=== PATIENT | male | born 1955 | race Caucasian/White ===

== ENCOUNTER 2021-06-25 02:43 | Emergency (ER) | payer OTHER, SELFPAY ==
[2021-06-25 02:43] VITALS: BP 100/61; PULSE 121; RESP 20; TEMP 36.6; O2SAT 96
--- NOTE | 2021-06-25 02:56 | ECG_ITS ---
Measurements Intervals [place] Rate: 107 P: 39 [place]: 151 QRS: -41 QRSD: 90 T: 77 QT: 357 QTc: 477 Interpretive Statements SINUS TACHYCARDIA LEFT AXIS DEVIATION DELAYED PRECORDIAL R/S TRANSITION BASELINE ARTIFACT- II, III, AVR, AVL, AVF, V1-V6 BORDERLINE ECG Electronically Signed On 06-25-2021 6:30:24 PROFESSIONAL SERVICES SPECIALIST by Peter Post D.O.
--- NOTE | 2021-06-25 03:10 | ED.GIBLEED ---
HPI - GI Bleed General Chief complaint: GI Bleed Stated complaint: possible gi bleed Time Seen by Provider: 06/25/21 02:47 Source: EMS and RN notes reviewed History of Present Illness HPI Narrative: Patient referred for evaluation for concern of GI bleed. Per nurse home the the patient had a bowel movement and emesis that appeared dark and his heart rate was high so he was referred for evaluation. Patient is nonverbal at baseline. Review of Systems Review of Systems: ROS unobtainable: Yes unobtainable due to medical condition Exam Narrative: GENERAL: Well-appearing, well-nourished, and in no acute distress. HEAD: Normocephalic, atraumatic. EYES: PERRLA and EOMI. ENT: Nares clear, no rhinorrhea or epistaxis. Mucous membranes moist. NECK: Supple. No masses. No JVD CHEST: Clear to auscultation. No respiratory distress. No wheezes rales or rhonchi HEART: Regular rate and rhythm. No murmur heard. Normal peripheral pulses. ABDOMEN: Soft, nontender, nondistended, normal active bowel sounds. Rectal: Mild brown-colored stool no active bleeding Hemoccults negative EXTREMITIES: Normal range of motion. No edema. SKIN: Warm, dry, no rash. NEURO: No focal deficits. Alert PSYCH: Normal mood and affect. Course Reevaluation(s) Reevaluation #1: Patient is resting comfortable heart rate has improved patient is appropriate to continue his [facility] care. Date: 06/25/21 Time: 04:42 Vital Signs Vital signs: Vital Signs Temperature 36.6 C 06/25/21 02:43 Pulse Rate 121 H 06/25/21 02:43 Respiratory Rate 20 06/25/21 02:43 Blood Pressure 100/61 06/25/21 02:43 Pulse Oximetry 96 06/25/21 02:43 Temperature 36.6 C 06/25/21 02:43 Pulse Rate 87 06/25/21 06:56 Respiratory Rate 16 06/25/21 06:56 Blood Pressure 100/72 06/25/21 06:56 Pulse Oximetry 98 06/25/21 06:56 MDM - GI Bleed MDM Narrative Medical decision making narrative: Patient is brought in for dark emesis and stool patient came in with tachycardia. Exam was reassuring rectal exam likely brown-colored stool Hemoccult was negative patient had no emesis throughout his ER stay. Labs obtained and they were clinically unremarkable H&H was normal BUN to creatinine ratio was unremarkable. Patient was given fluids heart rate normalized. Initial elevation in heart rate may be a stress response versus mild dehydration. Unsure as to what the dark-colored excretions were at the nursing facility however does not appear to be evidence of a GI bleed. With negative work-up and normal vital signs patient is appropriate continue his [facility] care. Lab Data Result diagrams: 06/25/21 03:13 06/25/21 03:14 Labs: Lab Results 06/25/21 06/25/21 06/25/21 Range/Units 03:13 03:13 03:14 WBC 8.2 (4.5-10.0) K/mm3 RBC 4.62 (4.6-6.20) M/mm3 Hgb 15.4 (14.0-18.0) g/dL Hct 46.4 (42.0-52.0) % MCV 100.4 H (80-100) fl MCH 33.3 (26-34) pg MCHC 33.2 (32-36) g/dl RDW 13.7 (11.5-14.5) % Plt Count 205 (150-375) k/mm3 MPV 11.9 H (7.4-10.4) fl Immature Gran % (Auto) 0.4 (0-0.5) % Neut % (Auto) 81.3 H (45.5-73.1) % Lymph % (Auto) 11.4 L (18.3-44.2) % Sully % (Auto) 5.4 (2.6-8.5) % Eos % (Auto) 1.0 (0-4.4) % Baso % (Auto) 0.5 (0.2-1.2) % Lymph # (Auto) 0.94 (0.9-3.2) K/mm3 Sully # (Auto) 0.4 (0.1-0.6) K/mm3 Eos # (Auto) 0.1 (0-0.3) K/mm3 Baso # (Auto) 0.0 (0.0-0.1) K/mm3 Abs Immat Gran (auto) 0.03 (0.00-0.031) K/mm3 Absolute Neuts (auto) 6.7 (1.3-6.7) K/mm3 Absolute Nucleated RBC 0.0 (0.0-0.012) K/mm3 Nucleated RBC % 0.0 (0.0-0.2) % PT 13.5 (11.1-14.7) Seconds INR 1.0 APTT 29.6 (22.3-36.8) SECONDS Sodium (137-145) mmol/L Potassium (3.4-5.0) mmol/L Chloride (98-107) mmol/L Carbon Dioxide (22-30) mmol/L Anion Gap (8-16) mmol/L BUN (9-20) mg/dL Creatinine (0.7-1.3) mg/dL Estim Creat Cl
[2021-06-25 03:22] LABS: Basophils Percent Auto 0.5 % (0.2-1.2); Eosinophils Absolute Auto 0.1 K/mm3 (0-0.3); Hematocrit 46.4 % (42.0-52.0); Hemoglobin 15.4 g/dL (14.0-18.0); Immature Granulocyte Absolute 0.03 K/mm3 (0.00-0.031); Immature Granulocyte Percent A 0.4 % (0-0.5); Lymphocytes Absolute Auto 0.94 K/mm3 (0.9-3.2); Lymphocytes Percent Auto 11.4 % (18.3-44.2); Mean Corpuscular HGB Conc 33.2 g/dl (32-36); Mean Corpuscular Hemoglobin 33.3 pg (26-34); Mean Corpuscular Volume 100.4 fl (80-100); Mean Platelet Volume 11.9 fl (7.4-10.4); Monocytes Absolute Auto 0.4 K/mm3 (0.1-0.6); Monocytes Percent Auto 5.4 % (2.6-8.5); Neutrophils Absolute Auto 6.7 K/mm3 (1.3-6.7); Neutrophils Percent Auto 81.3 % (45.5-73.1); Platelet Count Result 205 k/mm3 (150-375); Red Blood Count 4.62 M/mm3 (4.6-6.20); Red Cell Distribution Width 13.7 % (11.5-14.5); White Blood Count 8.2 K/mm3 (4.5-10.0)
[2021-06-25 03:33] LABS: Alanine Aminotransferase 13 U/L (4-50); Albumin Level 3.7 g/dL (3.5-5.1); Alkaline Phosphatase 96 U/L (38-126); Anion Gap 9 mmol/L (8-16); Aspartate Amino Transferase 19 U/L (17-59); Blood Urea Nitrogen 14 mg/dL (9-20); Calcium 9.2 mg/dL (8.4-10.2); Carbon Dioxide 23 mmol/L (22-30); Chloride 107 mmol/L (98-107); Estimated CRCL calculation 69 ml/min; Estimated Glomerular Filt Rate > 60; Glucose 153 mg/dL (65-110); Partial Thromboplastin Time 29.6 SECONDS (22.3-36.8); Sodium 139 mmol/L (137-145)
[2021-06-25 03:38] LABS: Prothrombin Time 13.5 Seconds (11.1-14.7)
[2021-06-25] MEDS: SODIUM CHLORIDE 0.9% IV 1,000 ML 125 ML IV CONT (03:38)
[2021-06-25 04:29] LABS: Add Urine Microscopic? YES; Appearance Urine Clear (Clear); Bilirubin Urine Negative (Negative); Blood Urine Negative (Negative); Color Urine Amber (Yellow); Glucose Urine UA Negative (Negative); Ketones Urine Trace mg/dL (Negative); Leukocyte Esterase Ur Negative LEU/UL (Negative); Mucus Urine Rare /lpf; Nitrate Urine Negative (Negative); Protein Urine 2+ mg/dL (Negative); Specific Grav Ur 1.027 (1.001-1.035); Squamous Epithelial Cell Urine Rare /hpf (Few); WBC Urine 0-3 /hpf
--- NOTE | 2021-06-25 04:30 | PC.NURSE ---
per EDP kierra normal saline rate changed to bolus rate 999 mls/hour
[2021-06-25 04:47] VITALS: BP 106/69; PULSE 100; RESP 12; O2SAT 96
--- NOTE | 2021-06-25 05:23 | PC.NURSE ---
report called to [facility]. report given to giacomo HOOPER.
[2021-06-25 06:56] VITALS: BP 100/72; PULSE 87; RESP 16; O2SAT 98
--- NOTE | 2021-07-02 19:52 | PC.NURSE ---
LATE ENTRY Normal saline infused approx 0624 on 06/25/21 This note is being entered to document information to the patient's record. The following information was omitted on [07/01/2021], by [Gopal Cevallos].
== END 2021-06-25 06:57 ==
PROVIDERS: Emergency Provider Emergency Medicine; PCP Internal Medicine
DX: R11.10 Vomiting, unspecified (principal); R00.0 Tachycardia, unspecified; R94.31 Abnormal electrocardiogram [ECG] [EKG]
CPT/HCPCS: 36415; 51701; 80053; 81001; 85025; 85610; 85730; 86850; 86900; 86901; 93005; 96360; 96361; 99283; J7030

== ENCOUNTER 2021-09-11 09:29 | Inpatient (IN) | payer OTHER, SELFPAY ==
[2021-09-11] VITALS (35 sets, daily range): BP systolic 87–108; BP diastolic 52–82; PULSE 68–97; RESP 12–29; TEMP 35.8–37.1; O2SAT 92–99; BMI 22.9
--- NOTE | ~2021-09-11 | US_ITS ---
US venous doppler [facility] DATE: 09/12/2021 10:29 INDICATION: Pulmonary embolism TECHNIQUE: Real-time and color flow imaging and Doppler analysis of the veins of the lower extremitie s COMPARISON: September 11, 2021 CTA chest FINDINGS: There is limited visualization of the popliteal and calf veins due to patient condition. The greater saphenous veins are patent. There is spontaneous and phasic flow and normal augmentation and color flow signal of the common femoral, femoral veins bilaterally. IMPRESSION: Limited visualization of popliteal and calf veins No deep venous thrombosis is demonstrated. Reviewed, dictated and finalized at [facility]. Reviewed, dictated and finalized at location A.
--- NOTE | ~2021-09-11 | US_ITS ---
EXAMINATION: US retroperitoneal limited DATE: 09/18/2021 15:14 INDICATION: Renal failure TECHNIQUE: Multiple grayscale and Doppler ultrasound images of the kidneys were obtained. COMPARISON: CT, 09/11/2021 FINDINGS: The right kidney measures 11.1 x 6.3 x 4.3 cm. The left kidney measures 11.8 x 5.5 x 6.9 cm . The kidneys demonstrate normal parenchymal echogenicity. There is no hydronephrosis. The bladder is decompressed by Benitez catheter. Incidental note is made of a 3.2 x 2.3 cm hyperechoic mass in the ri ght hepatic lobe. There also appears to be a second adjacent hyperechoic mass measuring 0.8 x 0.5 cm. No definite correlate is identified on the recent CT however multiple technical limiting factors neg ative Impact evaluation. IMPRESSION: 1. Normal kidneys without hydronephrosis. 2. Hyperechoic liver masses which could reflect hemangiomas however malignancy is not excluded. Furth er evaluation by CT or MRI without and with contrast is recommended. Reviewed, dictated and finalized at location B. IMPRESSION: 1. Normal kidneys without hydronephrosis. 2. Hyperechoic liver masses which could reflect hemangiomas however malignancy is not excluded. Further evaluation by CT or MRI without and with contrast is r ecommended.
--- NOTE | ~2021-09-11 | CT_ITS ---
EXAMINATION: CTA chest PE protocol DATE: 09/11/2021 10:46 INDICATION: Hypoxia. Shortness of breath. TECHNIQUE: Computed tomography angiography (CTA) of the chest was performed with 100 mL Omnipaque-350 intravenous contrast timed to evaluate the pulmonary arteries. Coronal maximum intensity projection 3D-reconstructions were created by the technologist. Automated exposure control and iterative reconst ruction technique were employed. The dose-length product was 736.97 mGy-cm. COMPARISON: Chest 2 views 09/11/2021 FINDINGS: There is mild emphysema. There is left hilar and subcarinal lymphadenopathy. There is occlu andra of left lower lobe bronchus centrally. There is bronchiectasis in left lower lobe. There are air space opacities throughout left lung lower lobe, consistent with pneumonia. There is a small left ple ural effusion. There is mild septal thickening in peripheral left upper lobe. The heart size is hardik l. There are coronary artery calcifications. No pericardial effusion. There is a pulmonary embolus at the branch point of right middle lobe and right lower lobe. Motion artifact decreases sensitivity fo r additional emboli. There are changes of cholecystectomy. There is severe thoracic spondylosis. Ther e is mild chronic height loss of multiple vertebral bodies. IMPRESSION: 1. Acute right-sided pulmonary embolus. 2. Left hilar and subcarinal lymphadenopathy with occlusion of left lower lobe bronchus suspicious fo r malignancy. 3. Postobstructive pneumonia in left lung lower lobe. 4. Small left pleural effusion. 5. Mild emphysema. Reviewed, dictated and finalized at location A. IMPRESSION: 1. Acute right-sided pulmonary embolus. 2. Left hilar and subcarinal lymphadenopathy with occlusion of left lower lobe bronchus suspicious for malignancy. 3. Postobstructive pneumonia in left lung lower lobe. 4. Small left pleural effusion. 5. Mild emphysema.
--- NOTE | ~2021-09-11 | XR_ITS ---
EXAMINATION: XR chest 1V portable INDICATION: Breath, pneumonia TECHNIQUE: Portable AP chest at 1015 hours COMPARISON: 09/11/2021 FINDINGS: There is improved aeration of the left lower lobe. The heart size is normal. Small left ple ural effusion. No pneumothorax is identified. The right lung is clear. IMPRESSION: 1. Improved aeration of the left lower lobe, possibly resolving postobstructive pneumonia. 2. Small left pleural effusion. Reviewed, dictated and finalized at location A.
--- NOTE | ~2021-09-11 | US_ITS ---
US abdomen limited DATE: 09/12/2021 10:31 INDICATION: Elevated liver function tests. Status post cholecystectomy. TECHNIQUE: Portable ultrasound imaging of liver, pancreas, gallbladder fossa COMPARISON: None FINDINGS: Approximately 2.6 cm hyperechoic right hepatic lesion is likely a hemangioma. Normal hepatopedal portal venous flow direction. The common bile duct measures 5 mm, within normal range. Status post cholecystectomy. There is limited visualization the pancreas; consider CT examination for more complete evaluation. IMPRESSION: 2.6 cm hyperechoic right hepatic lesion, likely hemangioma Status post cholecystectomy Limited visualization/evaluation of the pancreas Reviewed, dictated and finalized at [facility]. Reviewed, dictated and finalized at location A.
--- NOTE | ~2021-09-11 | XR_ITS ---
EXAMINATION: XR chest 2V DATE: 09/11/2021 10:04 INDICATION: Chest pain. TECHNIQUE: Frontal and lateral views of the chest were obtained. COMPARISON: None. FINDINGS: There are airspace opacities throughout left lower lobe, consistent with pneumonia. No defi nite pleural effusion. No pneumothorax. The heart size is normal. Surgical clips in the right upper q uadrant are likely from cholecystectomy. IMPRESSION: 1. Left lower lobe pneumonia. Reviewed, dictated and finalized at location A.
--- NOTE | ~2021-09-11 | CT_ITS ---
EXAMINATION: CT brain wo con INDICATION: Headache COMPARISON: None TECHNIQUE: Standard unenhanced head CT. The dose-length product (DLP) was 605.33 mGy-cm. The mA was a djusted according to patient size. Iterative reconstruction technique was employed. FINDINGS: There is no acute intraparenchymal hemorrhage. No evidence of mass lesion. No evidence of a cute infarction. There is moderate periventricular and subcortical hypodensity probably related to sm all vessel ischemic disease. There is moderate prominence of the sulci and ventricles related to cere bral atrophy. Intracranial calcified cerebral atherosclerosis is noted. There are no extra-axial whitney ections. There is no mass effect or midline shift. The orbits and soft tissues are unremarkable. The visualized sinuses and mastoid air cells are well aerated. IMPRESSION: 1. No acute intracranial abnormality. 2. Age related findings. Reviewed, dictated and finalized at location B.
--- NOTE | 2021-09-11 09:33 | ECG_ITS ---
Measurements Intervals [place] Rate: 90 P: 30 [place]: 141 QRS: -11 QRSD: 93 T: 31 QT: 375 QTc: 461 Interpretive Statements SINUS RHYTHM NORMAL ECG COMPARED TO ECG 06/25/2021 03:23:11 SINUS RHYTHM NOW PRESENT Electronically Signed On 09-11-2021 12:50:31 CDT by Jerrell Desir M.D.
--- NOTE | 2021-09-11 09:44 | ED.SOB ---
HPI - SOB/Dyspnea General Chief Complaint: Shortness of Breath/Dyspnea Stated Complaint: low o2 sats, rapid heart rate Time Seen by Provider: 09/11/21 09:36 Source: EMS Mode of arrival: EMS Limitations: dementia History of Present Illness HPI Narrative: Patient is a 66-year-old male brought in by EMS due to low oxygen saturation and elevated heart rate at the retirement today. Patient is nonverbal unable to get any history from the patient. Related Data Allergies Allergy/AdvReac Type Severity Reaction Status Date / Time Unable to Assess Allergy Verified 09/11/21 11:18 Review of Systems Review of Systems: All systems reviewed & are unremarkable except as noted in HPI and below PMFSH Comments Past medical history: Dementia Family history: Unknown Social history: Unknown if he ever smoked, lives in a retirement Exam Const: General: comfortable, well developed, alert and awake; No confusion Orientation/consciousness: No confusion Limitations: no limitations and other limitations (Nonverbal, dementia history) HENMT: Head: normal to inspection, normocephalic and atraumatic Ears: hearing grossly normal bilaterally, TM normal on the right and TM normal on the left General nose exam: Normal external nose present, Normal nares present and No nasal discharge present Face and sinus: normal facial exam Mouth: Yes Normal oral and palatal mucosa present, Yes lip normal, Yes tongue normal and Yes oropharynx normal Throat: posterior oropharynx normal, tonsils normal and uvula midline Eyes: General: appearance normal, both eyes and all related structures Pupils: Equal, round and reactive pupils present EOM: EOMs intact bilaterally Neck: Neck: normal visual inspection, full ROM, no lymphadenopathy and no meningeal signs Chest: Chest palpation & inspection: normal inspection of the chest Resp: Effort & Inspection: normal respiratory effort, able to speak in complete sentences, no respiratory distress and not tachypneic Auscultation: clear to auscultation bilaterally, no crackles, no rales, no rhonchi and no wheezes Cardio: Rate: regular rate Rhythm: regular rhythm GI: Inspection: normal to inspection GI Palp: No abdominal tenderness, Yes Soft to palpation, No Tenderness to palpation present (GI), No Guarding due to palpation present (GI), No Rigid due to palpation and No Rebound tenderness present Auscultation: normal bowel sounds : General: Yes no CVA tenderness Back/Spine/Pelvis: Back: no CVA tenderness Skin: General skin exam: normal color, no rashes or lesions noted, elasticity normal and turgor normal Neuro: Other: Unable to follow any commands, nonverbal Extrem: General: normal to inspection and capillary refill normal Course Vital Signs Vital signs: Vital Signs Pulse Rate 92 09/11/21 09:34 Temperature 37.1 C 09/11/21 09:35 Pulse Rate 91 09/11/21 11:39 Respiratory Rate 13 09/11/21 11:39 Blood Pressure 95/58 L 09/11/21 11:39 Pulse Oximetry 95 09/11/21 11:39 MDM - SOB/Dyspnea MDM Narrative Medical decision making narrative: CTA chest: IMPRESSION: 1. Acute right-sided pulmonary embolus. 2. Left hilar and subcarinal lymphadenopathy with occlusion of left lower lobe bronchus suspicious for malignancy. 3. Postobstructive pneumonia in left lung lower lobe. 4. Small left pleural effusion. 5. Mild emphysema. Patient started on Rocephin IV and Zithromax IV x1. Was given DuoNeb treatment and Solu-Medrol IV x1. Blood cultures pending Patient given heparin per PE protocol. Discussed with the hospitalist and accepted the admit Lab Data Result diagrams: 09/11/21 09:46 09/11/21 09:46 Labs: Lab Results 09/11/21 09/11/21 09/11/21 Range/Units 09:46 09:46 09:48 WBC 11.4 H (4.5-10.0) K/mm3 RBC 3.95 L (4.6-6.20) M/mm3 Hgb 11.7 L D (14.0-18.0) g/dL Hct 38.1 L (42.0-52.0) % MCV 96.5 (80-100) fl MCH 29.6 (26-34) pg MCHC 30.7 L
[2021-09-11] MEDS: SODIUM CHLORIDE 0.9% IV 1,000 ML 999 ML (09:48)
[2021-09-11 09:50] LABS: Basophils Absolute Auto 0.1 K/mm3 (0.0-0.1); Basophils Percent Auto 0.4 % (0.2-1.2); Eosinophils Percent Auto 0.1 % (0-4.4); Hematocrit 38.1 % (42.0-52.0); Hemoglobin 11.7 g/dL (14.0-18.0); Immature Granulocyte Absolute 0.08 K/mm3 (0.00-0.031); Immature Granulocyte Percent A 0.7 % (0-0.5); Lymphocytes Absolute Auto 1.14 K/mm3 (0.9-3.2); Mean Corpuscular HGB Conc 30.7 g/dl (32-36); Mean Corpuscular Hemoglobin 29.6 pg (26-34); Mean Corpuscular Volume 96.5 fl (80-100); Mean Platelet Volume 11.5 fl (7.4-10.4); Monocytes Absolute Auto 0.7 K/mm3 (0.1-0.6); Monocytes Percent Auto 5.9 % (2.6-8.5); Neutrophils Absolute Auto 9.4 K/mm3 (1.3-6.7); Neutrophils Percent Auto 82.9 % (45.5-73.1); Platelet Count Result 292 k/mm3 (150-375); Red Blood Count 3.95 M/mm3 (4.6-6.20); Red Cell Distribution Width 14.2 % (11.5-14.5); White Blood Count 11.4 K/mm3 (4.5-10.0)
[2021-09-11] MEDS: ALBUTEROL SULFATE NEB 2.5 MG/0.5 ML INH 5 MG INHALATION ×2 (09:57→20:01)
[2021-09-11] MEDS: IPRATROPIUM BR 0.02% INH SOLN 0.5 MG/2.5 ML VIAL INHALATION ×2 (09:58→20:01)
[2021-09-11 10:01] LABS: INR 1.4; Prothrombin Time 16.2 Seconds (11.1-14.7)
--- NOTE | 2021-09-11 10:01 | PC.NURSE ---
RT at bedside to administer breathing treatment.
[2021-09-11 10:02] LABS: Alanine Aminotransferase 68 U/L (4-50); Albumin Level 2.7 g/dL (3.5-5.1); Alkaline Phosphatase 89 U/L (38-126); Anion Gap 5 mmol/L (8-16); Aspartate Amino Transferase 74 U/L (17-59); Bilirubin,Total 0.9 mg/dL (0.2-1.3); Blood Urea Nitrogen 19 mg/dL (9-20); Calcium 8.3 mg/dL (8.4-10.2); Carbon Dioxide 27 mmol/L (22-30); Chloride 114 mmol/L (98-107); Estimated Glomerular Filt Rate > 60; Glucose 137 mg/dL (65-110); Potassium 3.7 mmol/L (3.4-5.0); Sodium 146 mmol/L (137-145)
[2021-09-11 10:03] LABS: Partial Thromboplastin Time 26.3 SECONDS (22.3-36.8)
[2021-09-11 10:08] LABS: Carboxyhemoglobin 0.9 % THb (0-2.0); Fractional Inspired Oxygen 21 %; HCO3 ABG 25.7 mEq/l (22.0-26.0); Methemoglobin ABG 0.1 %THb (0-1.5); Oxygen Content ABG 16.2 %vol (16.0-22.0); Oxygen Saturation ABG 96.1 % (95.0-100.0); Oxyhemoglobin 94.1 % THb (90.0-100.0); PCO2 ABG 29.4 mmHg (35.0-45.0); PO2 ABG 69.5 mmHg (80.0-100.0); PO2 FiO2 Ratio Arterial Blood 3.31 %; Reduced Hemoglobin 4.9 %THb (0-5.0); Total Hemoglobin 12.2 g/dL (12.0-18.0)
[2021-09-11 10:09] LABS: Device ROOM AIR; Site Drawn RIGHT BRACHIAL; pH ABG 7.559 (7.350-7.450)
[2021-09-11 10:13] LABS: NT Pro B Type Natriuretic Pept 391 pg/mL (5-100); Troponin I < 0.012 ng/mL (0.000-0.034)
--- NOTE | 2021-09-11 10:36 | PC.NURSE ---
patient off unit to radiology for Chest CT.
[2021-09-11] MEDS: methylPREDNISolone SOD SUCC 125 MG VIAL IV PUSH (11:38)
[2021-09-11 11:47] LABS: Lactic Acid Reflex 1.7 mmol/L (0.7-2.0)
--- NOTE | 2021-09-11 13:00 | PM.IMHP ---
H&P: HPI History of Present Illness Date/Time: 09/11/21 13:00 <Ayesha Bbo PA-C - Last Filed: 09/11/21 18:23> Chief Complaint: Abnormal vital signs. <Ayesha Bob PA-C - Last Filed: 09/11/21 18:23> Narrative: This is an unfortunate 66-year-old male with dementia who presented to the emergency department via EMS from [facility] for evaluation of abnormal vital signs, namely ?a high heart rate and low O2 sat.? He is reported to be alert but nonverbal at baseline thus he cannot provide a history and as such all the following is obtained via a review of his electronic medical records. According to EMS, the patient was in a sinus rhythm in the low 90s with an SpO2 of 91 to 92% on room air upon arrival. He was afebrile on arrival to the ED with blood pressures in the 80s to 90 systolic. D-dimer was elevated and a subsequent Chest CTA showed an acute right-sided pulmonary embolus in addition to left hilar and subcarinal lymphadenopathy with occlusion of the left lower lobe bronchus suspicious for malignancy and postobstructive pneumonia and he is being admitted in this setting for further treatment and evaluation. At the time my evaluation he is alert and will gaze in my interaction when I speak to him however he does not follow commands or answer questions. <Ayesha Bob PA-C - Last Filed: 09/11/21 18:23> Review of Systems Review of Systems: ROS unobtainable: Yes unobtainable due to medical condition <Ayesha Bob PA-C - Last Filed: 09/11/21 18:23> [facility] Past Medical History Medical History: Medical History (Updated 09/11/21 @ 18:00 by Ayesha Bob PA-C) Dementia Depression <Ayesha Bob PA-C - Last Filed: 09/11/21 18:23> Surgical History Surgical History: Surgical History (Updated 09/11/21 @ 18:00 by Ayesha Bob PA-C) Surgical history unknown <Ayesha Bob PA-C - Last Filed: 09/11/21 18:23> Family History Family History: Family History (Updated 09/11/21 @ 18:00 by Ayesha Bob PA-C) Other Family history unknown <Ayesha Bob PA-C - Last Filed: 09/11/21 18:23> Social History Social History: Social History (Updated 09/11/21 @ 18:02 by Ayesha Bob PA-C) Social History: Surrogate decision maker: Giancarlo Cardona. Code status: Full code. Smoking status: Unknown if ever smoked Alcohol intake: unknown Substance use: unknown Additional living arrangements comments: Resident of [facility]. Spiritual care concerns: No <Ayesha Bob PA-C - Last Filed: 09/11/21 18:23> Meds Home Medications and Allergies Home medications: Home Medications Medication Instructions Recorded Confirmed Type acetaminophen 650 mg PO Q6H PRN 09/11/21 09/11/21 History bupropion HCl 75 mg PO DAILY 09/11/21 09/11/21 History cholecalciferol (vitamin D3) 1,250 mcg PO WEEKLY 09/11/21 09/11/21 History citalopram 20 mg PO DAILY 09/11/21 09/11/21 History donepezil 10 mg PO HS 09/11/21 09/11/21 History mirtazapine 15 mg PO DAILY 09/11/21 09/11/21 History <Ayesha Bob PA-C - Last Filed: 09/11/21 18:23> Allergies/Adverse reactions: Allergies Allergy/AdvReac Type Severity Reaction Status Date / Time No Known Allergies Allergy Verified 09/11/21 15:41 <Ayesha Bob PA-C - Last Filed: 09/11/21 18:23> Vital Signs Vital Signs - 24 hr 09/11/21 09:34 09/11/21 09:35 09/11/21 10:04 Temperature 98.7 F Pulse Rate 92 93 90 Respiratory Rate 12 15 Blood Pressure 87/57 L Pulse Oximetry 92 09/11/21 10:05 09/11/21 10:10 09/11/21 10:19 Temperature Pulse Rate 87 86 97 Respiratory Rate 19 15 29 H Blood Pressure Pulse Oximetry 98 09/11/21 10:43 09/11/21 10:45 09/11/21 10:52 Temperature Pulse Rate 96 96 94 Respiratory Rate 13 19 17 Blood Pressure 90/64 L Pulse Oximetry 99 95 09/11/21 10:53 09/11/21 11:05 09/11/21 11:15 Temperature Pulse Rate 94
[2021-09-11] MEDS: HEPARIN SODIUM 5,000 UNITS/ML VIAL 5500 UNITS IV PUSH ×2 (13:05→19:57)
[2021-09-11] MEDS: HEPARIN SOD/D5W 100 UNITS/ML 25,000 UNITS/250 ML BAG 12 UNITS IV CONT (13:07)
[2021-09-11 14:01] LABS: SARS-CoV-2 RNA PCR Negative
[2021-09-11] MEDS: LACTATED RINGERS 1,000 ML 999 ML IV CONT ×2 (14:05→23:40)
[2021-09-11] MEDS: LACTATED RINGERS 1,000 ML 125 ML IV CONT (16:29)
--- NOTE | 2021-09-11 17:00 | PC.NURSE ---
This patient, Chandana Osborne, was admitted to IMU Room 206-02. Patient/family oriented to hospital policies and general routines including ID bracelet, bed and alarms, visiting hours, pain management, procedures, bathroom and other care routines, personal items, smoking policy, room service/diet, and visiting hours. Information on how to activate the Rapid Response Team has been discussed. Patient/Family are encouraged to report perceived risks to care and to ask questions if they do not understand what they are told or what they should do.
[2021-09-11 19:46] LABS: Partial Thromboplastin Time 42.9 SECONDS (22.3-36.8)
[2021-09-11 19:54] LABS: Anion Gap 5 mmol/L (8-16); Blood Urea Nitrogen 17 mg/dL (9-20); CRP 20.9 mg/dL (<1.0); Calcium 8.2 mg/dL (8.4-10.2); Carbon Dioxide 25 mmol/L (22-30); Chloride 114 mmol/L (98-107); Estimated CRCL calculation 103 ml/min; Estimated Glomerular Filt Rate > 60; Glucose 186 mg/dL (65-110); Potassium 3.9 mmol/L (3.4-5.0); Sodium 144 mmol/L (137-145)
[2021-09-11 19:56] LABS: Procalcitonin 0.3 ng/mL
[2021-09-11 20:25] LABS: Hepatitis B Surface Antigen Negative (Negative)
[2021-09-11 20:31] LABS: HAV RESULT Negative (Negative); Hepatitis B Core IgM Result Negative (Negative)
[2021-09-11 20:42] LABS: Hepatitis C Virus Antibody Negative (Negative)
[2021-09-11] MEDS: DOXYCYCLINE 100 MG/NS 100 ML 100 MG/100 ML BAG IVPB (22:02)
[2021-09-11 23:31] LABS: Glucose Point of Care 222 mg/dl (65-105)
[2021-09-12] VITALS (26 sets, daily range): BP systolic 83–96; BP diastolic 47–66; PULSE 49–85; RESP 17–24; TEMP 35.9–36.8; O2SAT 94–98
--- NOTE | 2021-09-12 00:12 | ECG_ITS ---
Measurements Intervals [place] Rate: 61 P: 47 [place]: 164 QRS: -5 QRSD: 91 T: 14 QT: 462 QTc: 469 Interpretive Statements SINUS RHYTHM COMPARED TO ECG 09/11/2021 09:32:28 NO SIGNIFICANT CHANGE Electronically Signed On 09-12-2021 13:40:45 CDT by Zayra Ardon M.D.
[2021-09-12] MEDS: PIPERACILLIN/TAZOBACTAM SOD 4.5 GM in SODIUM CHLORIDE 0.9% IV 100 ML 200 ML IVPB ×5 (00:46→23:58)
[2021-09-12 00:52] LABS: Troponin I < 0.012 ng/mL (0.000-0.034)
[2021-09-12] MEDS: IPRATROPIUM BR 0.02% INH SOLN 0.5 MG/2.5 ML VIAL INHALATION ×4 (02:51→20:07)
[2021-09-12] MEDS: ALBUTEROL SULFATE NEB 2.5 MG/0.5 ML INH 5 MG INHALATION ×4 (02:51→20:07)
[2021-09-12 02:56] LABS: Partial Thromboplastin Time 78.3 SECONDS (22.3-36.8)
[2021-09-12 03:10] LABS: Troponin I < 0.012 ng/mL (0.000-0.034)
[2021-09-12 06:13] LABS: Hematocrit 31.3 % (42.0-52.0); Hemoglobin 9.7 g/dL (14.0-18.0); Mean Corpuscular Hemoglobin 30.2 pg (26-34); Mean Corpuscular Volume 97.5 fl (80-100); Mean Platelet Volume 11.6 fl (7.4-10.4); Platelet Count Result 236 k/mm3 (150-375); Red Blood Count 3.21 M/mm3 (4.6-6.20); Red Cell Distribution Width 14.1 % (11.5-14.5); White Blood Count 7.2 K/mm3 (4.5-10.0)
[2021-09-12 06:25] LABS: Alanine Aminotransferase 47 U/L (4-50); Albumin Level 2.2 g/dL (3.5-5.1); Alkaline Phosphatase 68 U/L (38-126); Anion Gap 3 mmol/L (8-16); Aspartate Amino Transferase 37 U/L (17-59); Bilirubin,Total 0.4 mg/dL (0.2-1.3); Blood Urea Nitrogen 17 mg/dL (9-20); Calcium 7.9 mg/dL (8.4-10.2); Carbon Dioxide 25 mmol/L (22-30); Chloride 114 mmol/L (98-107); Estimated CRCL calculation 103 ml/min; Estimated Glomerular Filt Rate > 60; Glucose 200 mg/dL (65-110); Magnesium 2.4 mg/dL (1.6-2.3); Potassium 3.7 mmol/L (3.4-5.0); Sodium 142 mmol/L (137-145)
[2021-09-12 06:35] LABS: Troponin I < 0.012 ng/mL (0.000-0.034)
[2021-09-12 06:56] LABS: Thyroid Stimulating Hormone Reflex 0.794 uIU/mL (0.465-4.68)
--- NOTE | 2021-09-12 07:51 | PM.IMPN ---
Progress Note: A&P Additional Plan #Acute pulmonary embolism: -on a heparin drip and being monitored on telemetry. -echocardiogram ordered to assess for heart strain though no evidence of such on chest CTA. -Venous Doppler ultrasounds of the lower extremities are pending to rule out DVT. #Suspected malignant neoplasm of lung: -chest CT showed left hilar and subcarinal lymphadenopathy with occlusion of the left lower lobe bronchus which is suspicious for malignancy. This may very well be what has precipitated the pulmonary embolism. -next of kin and/or [id number] to discuss the next step and whether not they would want to pursue a diagnosis and treatment in this unfortunate and chronically debilitated gentleman. #Postobstructive pneumonia: -continue IV piperacillin/tazobactam, azithromycin, and vancomycin given suspected postobstructive pneumonia. Sputum culture in process. #Acute respiratory failure with hypoxia: -related to a combination of acute PE, lung mass and pneumonia. -now saturating 95% on room air. #Elevated LFTs: -may be related to infection though with suspicions for lung malignancy, will obtain right upper quadrant ultrasound. #Dehydration: resolved -being hydrated with IV LR -Bedside swallow ordered to evaluate his risk for aspiration. #Suspected dysphagia: -on admission, speech and swallow was consulted due to his clinical presentation. -I was called this morning by the swallow therapist who stated that since the patient is not following commands (she stated she got that information over the phone from the nurse), she cannot do a swallow evaluation today and that she will do the swallow evaluation tomorrow. -will switch fluids to dextrose-NS to prevent hypoglycemia. Time Spent With Patient Time with patient: 15 - 25 minutes Subjective Date/time seen: 09/12/21 07:51 Patient seen lying in bed. Asleep but rousable. Exam Const: General: comfortable and no acute distress Resp: Effort & Inspection: normal respiratory effort Auscultation: crackles and diminished lung sounds Cardio: Rate: regular rate Heart sounds: S1 normal heart sound present and S2 normal heart sound present GI: GI Palp: No abdominal tenderness and Yes Soft to palpation Auscultation: normal bowel sounds Extrem: General: normal to inspection Objective Data Vital Signs Vital Signs: Vital Signs - 24 hr 09/11/21 09:34 09/11/21 09:35 09/11/21 10:00 Temperature 98.7 F Pulse Rate 92 93 Respiratory Rate 12 Blood Pressure 87/57 L Pulse Oximetry 92 93 09/11/21 10:04 09/11/21 10:05 09/11/21 10:10 Temperature Pulse Rate 90 87 86 Respiratory Rate 15 19 15 Blood Pressure Pulse Oximetry 98 09/11/21 10:19 09/11/21 10:43 09/11/21 10:45 Temperature Pulse Rate 97 96 96 Respiratory Rate 29 H 13 19 Blood Pressure Pulse Oximetry 99 09/11/21 10:52 09/11/21 10:53 09/11/21 11:05 Temperature Pulse Rate 94 94 91 Respiratory Rate 17 15 22 H Blood Pressure 90/64 L Pulse Oximetry 95 94 09/11/21 11:15 09/11/21 11:16 09/11/21 11:32 Temperature Pulse Rate 89 90 86 Respiratory Rate 16 17 16 Blood Pressure Pulse Oximetry 92 09/11/21 11:39 09/11/21 12:25 09/11/21 12:30 Temperature Pulse Rate 91 87 84 Respiratory Rate 13 15 14 Blood Pressure 95/58 L Pulse Oximetry 95 09/11/21 12:31 09/11/21 13:08 09/11/21 13:15 Temperature Pulse Rate 85 82 89 Respiratory Rate 12 13 16 Blood Pressure 98/82 L Pulse Oximetry 09/11/21 13:16 09/11/21 13:17 09/11/21 13:30 Temperature Pulse Rate 84 81 78 Respiratory Rate 16 12 18 Blood Pressure 94/76 L Pulse Oximetry 09/11/21 13:31 09/11/21 13:53 09/11/21 14:05 Temperature Pulse Rate 82 79 77 Respiratory Rate 24 H 16 20 Blood Pressure 102/68 100/63 Pulse Oximetry 94 96 09/11/21 15:00 09/11/21 16:00 09/11/21 20:00 Temperature 97 F L 97.6 F Pulse Rate 76 79 69 Respiratory Rate 16 15 Blood Pressure
[2021-09-12 08:44] LABS: Glucose Point of Care 155 mg/dl (65-105)
[2021-09-12 08:45] LABS: Partial Thromboplastin Time 47.7 SECONDS (22.3-36.8)
[2021-09-12] MEDS: LACTATED RINGERS 1,000 ML 75 ML IV CONT (08:48)
[2021-09-12] MEDS: DOXYCYCLINE 100 MG/NS 100 ML 100 MG/100 ML BAG IVPB ×2 (08:49→21:19)
[2021-09-12] MEDS: HEPARIN SOD/D5W 100 UNITS/ML 25,000 UNITS/250 ML BAG 15 UNITS IV CONT (08:52)
--- NOTE | 2021-09-12 09:33 | PCSTNOTE ---
Addendum entered by Rhonda Briceño, , CCC, POLL CLERK 09/12/21 09:37: Speech therapist informed Dr. Demarco. Original Note: Speech therapist, YAEL, spoke with patient's nurse on the phone. Nurse reports patient does not follow commands but responds to light pain. His diet in the fdc was mechanical soft solids and thin liquids. Nurse offered a cup of thickened liquid. Patient did not respond to a straw or spoon to his lips even when moved around his mouth. BSE will be held as patient is not appropriate at this time. This therapist will check patient's status tomorrow.
[2021-09-12] MEDS: HEPARIN SODIUM 5,000 UNITS/ML VIAL 5500 UNITS IV PUSH (10:10)
[2021-09-12] MEDS: DEXTROSE 5%/0.9% SOD CHL 1,000 ML 75 ML IV CONT (13:08)
[2021-09-12 13:18] LABS: Glucose Point of Care 123 mg/dl (65-105)
[2021-09-12 17:12] LABS: Glucose Point of Care 148 mg/dl (65-105)
[2021-09-12 18:00] LABS: Partial Thromboplastin Time 117.1 SECONDS (22.3-36.8)
--- NOTE | 2021-09-12 18:16 | ECHO_ITS ---
Patient Info Name: Chandana Osborne Age: 66 years : 1955 Gender: Male Ht: 70 in Wt: 160 lbs BSA: 1.89 m2 HR: 61 bpm BP: 93 / 66 mmHg Heart Rhythm: Sinus Rhythm Technical Quality: Good Exam Date: 09/12/2021 8:03 AM Exam Location: [facility] Pulmonary Patient Status: Inpatient Admit Date: 09/11/2021 Staff Ordering Physician: Ayesha Bob PA-C [employer] Supervisor: Kendy Amador RDCS Attending Provider: Lilliana Demarco MD Referring Physician: Paulino OWENS; Exam Type: CA echo doppler color flow Study Info Indications I27.82 - Chronic pulmonary embolism Complete two-dimensional, color flow and Doppler transthoracic echocardiogram is performed. Summary 1. Complete two-dimensional, color flow and Doppler transthoracic echocardiogram is performed. 2. Normal left ventricular size with borderline concentric hypertrophy and overall good contractility of all segments. Ejection fraction is 55-60%. Normal diastolic function. 3. Right ventricular chamber dimension is borderline enlarged. 4. Left atrial chamber dimension is mildly enlarged. 5. There is mild tricuspid valve regurgitation. 6. No pulmonary hypertension, estimated pulmonary arterial systolic pressure is 24 mmHg. 7. Normal sinus rhythm. Left Ventricle Left ventricular chamber dimension is normal. Left ventricular systolic function is normal, estimated at 55-60%. There is no increased left ventricular wall thickness. Left ventricular septal wall motion is normal. The left ventricular diastolic function is normal. Right Ventricle Right ventricular chamber dimension is borderline enlarged. Right ventricular systolic function is normal. Left Atria Left atrial chamber dimension is mildly enlarged. Right Atria Right atrial chamber dimension is normal. Aortic Valve The aortic valve is trileaflet. There is mild aortic valve sclerosis. There is no aortic valve stenosis. There is trace aortic valve regurgitation. Pulmonic Valve The pulmonic valve is normal. There is no pulmonic valve stenosis. There is no pulmonic regurgitation. Mitral Valve The mitral valve has normal leaflets. There is no mitral valve stenosis. There is trace mitral valve regurgitation. Tricuspid Valve The tricuspid valve leaflets are normal. There is no significant tricuspid valve stenosis. There is mild tricuspid valve regurgitation. No pulmonary hypertension, estimated pulmonary arterial systolic pressure is 24 mmHg. Pericardium/Pleural The pericardium appears normal. There is no pericardial effusion. Inferior Vena Cava Normal inferior vena cava with >50% collapse upon inspiration consistent with Empty right atrial pressure, 10 mmHg. Aorta The aortic root size at the sinus of Valsalva is normal. The prox ascending aorta size is normal. Left Ventricular Outflow Tract Name Value Normal LVOT 2D LVOT Diameter 2.3 cm LVOT Doppler LVOT Peak Gradient 3 mmHg LVOT Mean Gradient 2 mmHg LVOT VTI 21 cm LVOT VTI/AV VTI Ratio
--- NOTE | 2021-09-12 19:08 | PC.NURSE ---
CHEETAH dynamic monitoring preformed for hypotension. Patients SVI 5.3% (Not fluid responsive).
[2021-09-12 23:38] LABS: Glucose Point of Care 117 mg/dl (65-105)
[2021-09-13] VITALS (26 sets, daily range): BP systolic 92–109; BP diastolic 52–59; PULSE 56–83; RESP 12–22; TEMP 36–36.8; O2SAT 96–98
[2021-09-13] MEDS: HEPARIN SOD/D5W 100 UNITS/ML 25,000 UNITS/250 ML BAG 17 UNITS IV CONT (00:15)
[2021-09-13 01:08] LABS: Partial Thromboplastin Time 54.3 SECONDS (22.3-36.8)
[2021-09-13] MEDS: HEPARIN SODIUM 5,000 UNITS/ML VIAL 5500 UNITS IV PUSH (01:25)
[2021-09-13] MEDS: IPRATROPIUM BR 0.02% INH SOLN 0.5 MG/2.5 ML VIAL INHALATION ×4 (02:37→20:55)
[2021-09-13] MEDS: ALBUTEROL SULFATE NEB 2.5 MG/0.5 ML INH 5 MG INHALATION ×4 (02:37→20:55)
[2021-09-13] MEDS: DEXTROSE 5%/0.9% SOD CHL 1,000 ML 75 ML IV CONT ×2 (04:33→23:43)
[2021-09-13 04:48] LABS: Basophils Percent Auto 0.1 % (0.2-1.2); Hematocrit 31.3 % (42.0-52.0); Hemoglobin 9.6 g/dL (14.0-18.0); Immature Granulocyte Absolute 0.05 K/mm3 (0.00-0.031); Immature Granulocyte Percent A 0.5 % (0-0.5); Lymphocytes Absolute Auto 0.88 K/mm3 (0.9-3.2); Lymphocytes Percent Auto 9.1 % (18.3-44.2); Mean Corpuscular HGB Conc 30.7 g/dl (32-36); Mean Corpuscular Hemoglobin 30.1 pg (26-34); Mean Corpuscular Volume 98.1 fl (80-100); Mean Platelet Volume 11.9 fl (7.4-10.4); Monocytes Absolute Auto 0.5 K/mm3 (0.1-0.6); Monocytes Percent Auto 5.5 % (2.6-8.5); Neutrophils Absolute Auto 8.2 K/mm3 (1.3-6.7); Neutrophils Percent Auto 84.8 % (45.5-73.1); Platelet Count Result 234 k/mm3 (150-375); Red Blood Count 3.19 M/mm3 (4.6-6.20); Red Cell Distribution Width 14.3 % (11.5-14.5); White Blood Count 9.6 K/mm3 (4.5-10.0)
[2021-09-13 04:59] LABS: Anion Gap 1 mmol/L (8-16); Blood Urea Nitrogen 13 mg/dL (9-20); Calcium 7.8 mg/dL (8.4-10.2); Carbon Dioxide 26 mmol/L (22-30); Chloride 116 mmol/L (98-107); Estimated CRCL calculation 89 ml/min; Estimated Glomerular Filt Rate > 60; Glucose 142 mg/dL (65-110); Sodium 143 mmol/L (137-145)
[2021-09-13 05:38] LABS: Vancomycin Trough 14.7 ug/mL (10.0-20.0)
[2021-09-13] MEDS: PIPERACILLIN/TAZOBACTAM SOD 4.5 GM in SODIUM CHLORIDE 0.9% IV 100 ML 200 ML IVPB ×4 (05:40→23:43)
[2021-09-13 05:53] LABS: Glucose Point of Care 137 mg/dl (65-105)
[2021-09-13 08:35] LABS: Partial Thromboplastin Time 122.3 SECONDS (22.3-36.8)
[2021-09-13] MEDS: DOXYCYCLINE 100 MG/NS 100 ML 100 MG/100 ML BAG IVPB ×2 (09:05→20:18)
--- NOTE | 2021-09-13 10:20 | PM.IMPN ---
Progress Note: A&P Assessment and Plan (1) Acute pulmonary embolism: Qualifiers: Acute cor pulmonale presence: without acute cor pulmonale Pulmonary embolism type: unspecified Qualified Code(s): I26.99 - Other pulmonary embolism without acute cor pulmonale Code(s): I26.99 - Other pulmonary embolism without acute cor pulmonale Status: Acute Assessment and Plan: - Acute Right sided pulmonary embolus per CT scan. -continue heparin drip. -monitor respiratory status. -Lowery Doppler negative for any DVT. (2) Suspected malignant neoplasm of lung: Code(s): R68.89 - Other general symptoms and signs Status: Acute Assessment and Plan: -as noted per CTA patient has a left hilar and subcarinal lymphadenopathy with occlusion of the left lower lobe bronchus that is suspicious for malignancy. -Pulmonology consulted, appreciate their recommendations. (3) Postobstructive pneumonia: Code(s): J18.9 - Pneumonia, unspecified organism Status: Acute Assessment and Plan: -continue Zosyn, Zithromax and vancomycin. Pneumo and Legionella labs pending. -continue supplemental oxygen as needed. (4) Hypoxia: Code(s): R09.02 - Hypoxemia Status: Acute Assessment and Plan: -continue supplemental oxygen -monitor vital signs (5) Elevated LFTs: Code(s): R79.89 - Other specified abnormal findings of blood chemistry Status: Acute Assessment and Plan: -infection versus malignancy -right upper quadrant ultrasound shows a 2.6 hyperechoic right hepatic lesion that is likely a hemangioma. - Trend labs (6) Dehydration: Code(s): E86.0 - Dehydration Status: Acute Assessment and Plan: - Continue IVF and monitor labs. Time Spent With Patient Time with patient: 15 - 25 minutes Subjective Date/time seen: 09/13/21 10:20 This pt. was examined at the bedside in interval assessment from being admitted with PE's and PNA. He remains on Heparin drip and continues to receive Zosyn, Doxy and Vanc. He has a history of Dementia, Psychosis, and remains Non-verbal. Unable to obtain subjective assessment. Venous dopplers were ordered and there is no visible DVT. There is noted limited visualization of the popliteal and calf veins, however. If overt concern for DVT in context of currently being on Heparin drip for anti-coagulation, I would consider performing CT Venogram. For now will continue current treatment. Pt. also had an US of the abdomen completed for his elevated LFT's that shows s/p cholecystectomy, as well as a limited visualization of the pancreas. He is hypokalemic this morning and 40mEq will be ordered for supplementation with a Potassium level of 3.0. Pt. does not appear to have any acute distress at this time. Review of Systems Review of Systems: Pt. non-verbal, will not follow commands. ROS unobtainable: Yes unobtainable due to mental status Exam Const: General: no acute distress HENMT: Mouth: Yes moist mucous membranes Eyes: Sclera: sclerae normal Neck: Neck: no JVD Lymphatic: lymphadenopathy not noted Resp: Auscultation: diminished lung sounds bilateral and diffuse Cardio: Rate: regular rate Rhythm: regular rhythm GI: GI Palp: Yes Soft to palpation and No Tenderness to palpation present (GI) Auscultation: normal bowel sounds Skin: General skin exam: normal color and no rashes or lesions noted Neuro: Other: pt. not communicative and will not follow commands. Extrem: General: normal to inspection Right upper extremity: no edema Left upper extremity: no edema Right lower extremity: no edema Left lower extremity: no edema Psych: Other: Unable to assess as pt. is not communicative. Objective Data Vital Signs Vital Signs: Vital Signs - 24 hr 09/12/21 12:00 09/12/21 13:48 09/12/21 13:55 Temperature 96.8 F L Pulse Rate 66 55 L 64 Respiratory Rate 22 H 18 18 Blood Pressure 89/54
[2021-09-13] MEDS: POTASSIUM CHLORIDE INJ 40 MEQ in SODIUM CHLORIDE 0.9% IV 500 ML 130 MEQ IVPB (10:21)
--- NOTE | 2021-09-13 10:51 | PCSTNOTE ---
ST YAEL unable to wake pt. He did not open eyes to his name or to patting of his shoulders. He opened eyes when a wet toothette was placed to his lips but made no attempt to suck on it. Nurse confirmed pt is too somnolent for BSE today.
[2021-09-13 12:28] LABS: Glucose Point of Care 117 mg/dl (65-105)
[2021-09-13 14:12] LABS: Partial Thromboplastin Time 111.5 SECONDS (22.3-36.8)
[2021-09-13 17:42] LABS: Glucose Point of Care 109 mg/dl (65-105)
[2021-09-13 20:28] LABS: Partial Thromboplastin Time 112.6 SECONDS (22.3-36.8)
[2021-09-13 23:03] LABS: Glucose Point of Care 115 mg/dl (65-105)
[2021-09-14] VITALS (19 sets, daily range): BP systolic 98–104; BP diastolic 50–66; PULSE 57–71; RESP 12–20; TEMP 35.7–36.7; O2SAT 95–98
[2021-09-14] MEDS: IPRATROPIUM BR 0.02% INH SOLN 0.5 MG/2.5 ML VIAL INHALATION ×3 (02:26→20:11)
[2021-09-14] MEDS: ALBUTEROL SULFATE NEB 2.5 MG/0.5 ML INH 5 MG INHALATION ×3 (02:26→20:11)
[2021-09-14 03:09] LABS: Basophils Percent Auto 0.1 % (0.2-1.2); Eosinophils Percent Auto 0.3 % (0-4.4); Hematocrit 30.6 % (42.0-52.0); Hemoglobin 9.4 g/dL (14.0-18.0); Immature Granulocyte Absolute 0.05 K/mm3 (0.00-0.031); Immature Granulocyte Percent A 0.7 % (0-0.5); Lymphocytes Absolute Auto 1.27 K/mm3 (0.9-3.2); Lymphocytes Percent Auto 18.6 % (18.3-44.2); Mean Corpuscular HGB Conc 30.7 g/dl (32-36); Mean Corpuscular Hemoglobin 29.8 pg (26-34); Mean Corpuscular Volume 97.1 fl (80-100); Mean Platelet Volume 11.6 fl (7.4-10.4); Monocytes Absolute Auto 0.4 K/mm3 (0.1-0.6); Neutrophils Absolute Auto 5.1 K/mm3 (1.3-6.7); Neutrophils Percent Auto 74.3 % (45.5-73.1); Platelet Count Result 223 k/mm3 (150-375); Red Blood Count 3.15 M/mm3 (4.6-6.20); Red Cell Distribution Width 14.5 % (11.5-14.5); White Blood Count 6.8 K/mm3 (4.5-10.0)
[2021-09-14 03:22] LABS: Partial Thromboplastin Time 114.7 SECONDS (22.3-36.8)
[2021-09-14 03:40] LABS: Alanine Aminotransferase 25 U/L (4-50); Albumin Level 2.1 g/dL (3.5-5.1); Alkaline Phosphatase 60 U/L (38-126); Anion Gap 4 mmol/L (8-16); Aspartate Amino Transferase 19 U/L (17-59); Bilirubin,Total 0.3 mg/dL (0.2-1.3); Blood Urea Nitrogen 7 mg/dL (9-20); Calcium 7.7 mg/dL (8.4-10.2); Carbon Dioxide 24 mmol/L (22-30); Chloride 113 mmol/L (98-107); Estimated CRCL calculation 89 ml/min; Estimated Glomerular Filt Rate > 60; Glucose 123 mg/dL (65-110); Magnesium 2.1 mg/dL (1.6-2.3); Potassium 2.9 mmol/L (3.4-5.0); Sodium 141 mmol/L (137-145)
[2021-09-14] MEDS: POTASSIUM CHLORIDE INJ 40 MEQ in SODIUM CHLORIDE 0.9% IV 500 ML 130 MEQ IVPB (04:37)
[2021-09-14] MEDS: PIPERACILLIN/TAZOBACTAM SOD 4.5 GM in SODIUM CHLORIDE 0.9% IV 100 ML 200 ML IVPB ×3 (05:06→17:43)
[2021-09-14] MEDS: HEPARIN SOD/D5W 100 UNITS/ML 25,000 UNITS/250 ML BAG 16 UNITS IV CONT (05:07)
[2021-09-14 09:34] LABS: Partial Thromboplastin Time 92.7 SECONDS (22.3-36.8)
[2021-09-14] MEDS: DOXYCYCLINE 100 MG/NS 100 ML 100 MG/100 ML BAG IVPB ×2 (09:54→19:57)
--- NOTE | 2021-09-14 10:12 | PCSTNOTE ---
Therapist attempted to awaken patient for Bedside Swallow Evaluation around 8:30 am and patient would not arouse. Will try again later today. May request d/c BSE order and order again when patient better able to participate.
--- NOTE | 2021-09-14 10:15 | PM.CNPUL ---
Assessment and Plan Assessment and plan (1) Acute pulmonary embolism: Qualifiers: Acute cor pulmonale presence: without acute cor pulmonale Pulmonary embolism type: unspecified Qualified Code(s): I26.99 - Other pulmonary embolism without acute cor pulmonale Code(s): I26.99 - Other pulmonary embolism without acute cor pulmonale Status: Acute Assessment and Plan: Patient with hypoxia at the group home and a CT angiogram that shows right middle and lower lobe pulmonary emboli on 09/11/2021. Patient has remained hemodynamically stable, BNP was 391, troponins were negative x4 and with no evidence of right heart strain and has been on room air saturations 95%. His lower extremity Dopplers are negative for DVT. The patient is 66 and I suspect this was provoked by his sedentary lifestyle. He may also have cancer. He will need a minimum of 3 months anticoagulation followed by reassessment. I do not see need for hypercoagulable workup at this time. patient has had no bleeding complications and at this point I would transition him to a DOAC that his insurance will cover. (2) Pneumonia: Qualifiers: Laterality: unspecified laterality Lung location: unspecified part of lung Pneumonia type: due to unspecified organism Qualified Code(s): J18.9 - Pneumonia, unspecified organism Code(s): J18.9 - Pneumonia, unspecified organism Status: Acute Assessment and Plan: Patient had a leukocytosis on presentation and this may be due to bacterial infection and or pulmonary emboli. He had collapse of the left lower lobe associated with left hilar and mediastinal lymphadenopathy. His chest x-ray today showed improved aeration of the left lower lobe after treatment for PE and bacterial infection with ceftriaxone and azithromycin x1 dose followed by vancomycin, Zosyn and doxycycline since 09/11. at this point I would continue these antibiotics while he is in house and would complete a total of 10 days antibiotics with cefdinir 300 mg p.o. b.i.d. and Levaquin 750 mg p.o. q.day. If the family wishes to pursue additional workup of this lymphadenopathy in the future then I would repeat a CT scan of the chest without contrast in 6 weeks. Discussed with Siena Ramirez. Will sign off. Call with any questions. History of Present Illness History of Present Illness Consult date: 09/14/21 Requesting physician: Roya Ramirez APN-[facility] Reason for consult: pneumonia and other (RAH) Chief complaint: Acute pulmonary embolism/pneumonia Narrative: 09/14/2021: This is a new Pulmonary consult for PE and lymphadenopathy 66-year-old man with a history of dementia who is nonverbal and lives at [facility]. [facility] with a fast heart rate and low oxygen saturations. Patient was found to have a white blood cell count of 11.4, creatinine 0.8, RT PCR for COVID was negative, troponins were negative x4 BNP was 391 procalcitonin was 0.3, CT angiogram of the chest revealed right middle lobe, right lower lobe pulmonary emboli as well as left hilar and subcarinal lymphadenopathy with consolidation of the left lower lobe. Patient was started on IV heparin drip. Patient was started on ceftriaxone and azithromycin which were switched to vancomycin, Zosyn and doxycycline on 09/11. Patient was on room air with saturations 93%. On 09/12/2021 the patient had an echocardiogram showing LVEF 55-60, of the right ventricular size was borderline enlarged, with normal right ventricular function, right atrium was normal size with a PASP of 24. Patient had lower extremity Dopplers which were negative for DVT. Room air saturations remained 95%. On 09/13/2020 the patient remained on room air. Remained on IV heparin and was in no respiratory distress. 09/14 I was consulted today and the patient is nonverbal and in no respiratory distress on room air with saturations 98%. He is afebrile with
[2021-09-14 12:04] LABS: Glucose Point of Care 106 mg/dl (65-105)
[2021-09-14 12:28] LABS: Potassium 3.3 mmol/L (3.4-5.0)
--- NOTE | 2021-09-14 14:29 | PM.IMPN ---
Progress Note: A&P Assessment and Plan (1) Acute pulmonary embolism: Qualifiers: Acute cor pulmonale presence: without acute cor pulmonale Pulmonary embolism type: unspecified Qualified Code(s): I26.99 - Other pulmonary embolism without acute cor pulmonale Code(s): I26.99 - Other pulmonary embolism without acute cor pulmonale Status: Acute Assessment and Plan: - Acute Right sided pulmonary embolus per CT scan. -continue heparin drip. -monitor respiratory status. -Venous Doppler negative for any DVT. - Care Coordination was consulted for determination of the most appropriate DOAC for the patient's insurance. (2) Suspected malignant neoplasm of lung: Code(s): R68.89 - Other general symptoms and signs Status: Acute Assessment and Plan: -as noted per CTA patient has a left hilar and subcarinal lymphadenopathy with occlusion of the left lower lobe bronchus that is suspicious for malignancy. -Pulmonology consulted, and advised that pt. should have a repeat CT scan in 6 weeks to determine whether or not it was actual occlusion of the lung from the current infectious process causing a mucous, or if it is from a malignancy. - I have called to speak to the court appointed guardian and a message was left for them to return call. (3) Postobstructive pneumonia: Code(s): J18.9 - Pneumonia, unspecified organism Status: Acute Assessment and Plan: -continue Zosyn, Zithromax and vancomycin. Pneumo and Legionella labs pending. -continue supplemental oxygen as needed. - Continue IV abx while in hospital and at discharge, Dr. Orellana recommends 10 days of Cefdinir and Levaquin. (4) Hypoxia: Code(s): R09.02 - Hypoxemia Status: Acute Assessment and Plan: -continue supplemental oxygen -monitor vital signs (5) Elevated LFTs: Code(s): R79.89 - Other specified abnormal findings of blood chemistry Status: Acute Assessment and Plan: -infection versus malignancy -right upper quadrant ultrasound shows a 2.6 hyperechoic right hepatic lesion that is likely a hemangioma. - Trend labs, which today are normal. (6) Dehydration: Code(s): E86.0 - Dehydration Status: Acute Assessment and Plan: - Continue IVF and monitor labs. (7) Hypokalemia: Code(s): E87.6 - Hypokalemia Status: Acute Assessment and Plan: - Pt. received a K+ rider overnight for K+ of 2.9. He is rechecked this afternoon and he is 3.3. As he is not responding, it is ordered for him to get another 20 mEq rider. Time Spent With Patient Time with patient: 15 - 25 minutes Subjective Date/time seen: 09/14/21 0900 This pt, was examined at the bedside today in interval assessment and remains non-verbal, not contributing of any information. He remains on a Heparin drip currently as well as IV abx of Zosyn, Doxy and vancomycin that Dr. Orellana from Pulmonology recommends continuing while he is inpatient. Once ready for discharge, he recommends discharging on Cefdinir and Levaquin. Abx to be continued for a total of 10 days. In addition, he recommends starting a DOAC in place of Heparin. Care Coordination is consulted for specialty medication consult to determine whether Xarelto vs. Eliquis is appropriate. In addition, pulmonology recommends a follow up Chest CT in six weeks to re-evaluate the lungs and PNA. He mentions that it is possible that the obstructive process was due to a PE or mucous from his PNA. Follow up for a possible oncological disease should only be pursued when the family and/or POA is agreeable when weighing patient's quality of life. Pt. is non-verbal. Unable to participate in conversation or be decisional regarding care. He has a court appointed guardian through the state, and the patient's guardian is Eric Cardona. I called and left a message with the state appointed guardian office on Eric's secure phone line to please call us reg
[2021-09-14] MEDS: KCL 20 MEQ/SW 100 ML 100 ML 50 MEQ IVPB (15:13)
[2021-09-14 15:32] LABS: Partial Thromboplastin Time 106.3 SECONDS (22.3-36.8)
--- NOTE | 2021-09-14 16:28 | PC.NURSE ---
This patient, Chandana Osborne, was transferred to [facility] on 09/14/21 at 1600. Personal belongings sent with patient. Report given to Speedy HOOPER. Appropriate documentation sent with patient.
[2021-09-14 17:21] LABS: Glucose Point of Care 97 mg/dl (65-105)
[2021-09-14 18:20] LABS: Vancomycin Trough 20.9 ug/mL (10.0-20.0)
[2021-09-14] MEDS: DONEPEZIL HCL 10 MG TABLET PO (19:57)
[2021-09-14] MEDS: DEXTROSE 5%/0.9% SOD CHL 1,000 ML 75 ML IV CONT (20:00)
[2021-09-14 21:30] LABS: Partial Thromboplastin Time 91.8 SECONDS (22.3-36.8)
[2021-09-14] MEDS: HEPARIN SOD/D5W 100 UNITS/ML 25,000 UNITS/250 ML BAG 15 UNITS IV CONT (22:03)
[2021-09-15] VITALS (10 sets, daily range): BP systolic 96–102; BP diastolic 52–66; PULSE 55–80; RESP 14–18; TEMP 36.6–36.7; O2SAT 93–97; BMI 24.6
[2021-09-15 00:24] LABS: Glucose Point of Care 122 mg/dl (65-105)
[2021-09-15] MEDS: PIPERACILLIN/TAZOBACTAM SOD 4.5 GM in SODIUM CHLORIDE 0.9% IV 100 ML 200 ML IVPB ×4 (00:31→18:40)
[2021-09-15] MEDS: IPRATROPIUM BR 0.02% INH SOLN 0.5 MG/2.5 ML VIAL INHALATION ×4 (02:27→20:30)
[2021-09-15] MEDS: ALBUTEROL SULFATE NEB 2.5 MG/0.5 ML INH 5 MG INHALATION ×4 (02:27→20:57)
[2021-09-15 03:35] LABS: Partial Thromboplastin Time 109.7 SECONDS (22.3-36.8)
[2021-09-15 03:36] LABS: Alanine Aminotransferase 21 U/L (4-50); Albumin Level 2.2 g/dL (3.5-5.1); Alkaline Phosphatase 64 U/L (38-126); Anion Gap 3 mmol/L (8-16); Aspartate Amino Transferase 19 U/L (17-59); Bilirubin,Total 0.7 mg/dL (0.2-1.3); Blood Urea Nitrogen 4 mg/dL (9-20); Calcium 7.9 mg/dL (8.4-10.2); Carbon Dioxide 25 mmol/L (22-30); Chloride 110 mmol/L (98-107); Estimated CRCL calculation 79 ml/min; Estimated Glomerular Filt Rate > 60; Glucose 118 mg/dL (65-110); Potassium 3.2 mmol/L (3.4-5.0); Sodium 138 mmol/L (137-145)
[2021-09-15 04:58] LABS: Basophils Percent Auto 0.5 % (0.2-1.2); Eosinophils Absolute Auto 0.1 K/mm3 (0-0.3); Eosinophils Percent Auto 1.3 % (0-4.4); Hemoglobin 10.4 g/dL (14.0-18.0); Immature Granulocyte Absolute 0.04 K/mm3 (0.00-0.031); Immature Granulocyte Percent A 0.6 % (0-0.5); Lymphocytes Absolute Auto 1.21 K/mm3 (0.9-3.2); Lymphocytes Percent Auto 19.4 % (18.3-44.2); Mean Corpuscular HGB Conc 30.6 g/dl (32-36); Mean Corpuscular Hemoglobin 29.9 pg (26-34); Mean Corpuscular Volume 97.7 fl (80-100); Mean Platelet Volume 11.7 fl (7.4-10.4); Monocytes Absolute Auto 0.3 K/mm3 (0.1-0.6); Monocytes Percent Auto 5.3 % (2.6-8.5); Neutrophils Absolute Auto 4.6 K/mm3 (1.3-6.7); Neutrophils Percent Auto 72.9 % (45.5-73.1); Platelet Count Result 211 k/mm3 (150-375); Red Blood Count 3.48 M/mm3 (4.6-6.20); Red Cell Distribution Width 14.3 % (11.5-14.5); White Blood Count 6.2 K/mm3 (4.5-10.0)
[2021-09-15 05:07] LABS: Glucose Point of Care 116 mg/dl (65-105)
[2021-09-15 05:32] LABS: Pneumococcal Antigen Urine Not Detected (Not Detected)
[2021-09-15 07:24] LABS: Glucose Point of Care 92 mg/dl (65-105)
[2021-09-15] MEDS: DOXYCYCLINE 100 MG/NS 100 ML 100 MG/100 ML BAG IVPB (08:55)
[2021-09-15 09:54] LABS: Partial Thromboplastin Time 99.6 SECONDS (22.3-36.8)
[2021-09-15 11:29] LABS: Glucose Point of Care 132 mg/dl (65-105)
--- NOTE | 2021-09-15 12:04 | PCSTNOTE ---
Speech Therapy order for Bedside Swallow Evaluation is being discharged at this time as patient is unable to be arouse and consume oral presentations safely. A new order may be placed when patient is better able to participate in oral feedings.
[2021-09-15] MEDS: HEPARIN SOD/D5W 100 UNITS/ML 25,000 UNITS/250 ML BAG 14 UNITS IV CONT ×2 (13:54→14:32)
--- NOTE | 2021-09-15 14:50 | PM.IMPN ---
Progress Note: A&P Assessment and Plan (1) Hypokalemia: Code(s): E87.6 - Hypokalemia Status: Acute (2) Dementia: Code(s): F03.90 - Unspecified dementia without behavioral disturbance Status: Acute (3) Elevated LFTs: Code(s): R79.89 - Other specified abnormal findings of blood chemistry Status: Acute (4) Dehydration: Code(s): E86.0 - Dehydration Status: Acute (5) Suspected malignant neoplasm of lung: Code(s): R68.89 - Other general symptoms and signs Status: Acute (6) Hypoxia: Code(s): R09.02 - Hypoxemia Status: Acute (7) Acute pulmonary embolism: Qualifiers: Acute cor pulmonale presence: without acute cor pulmonale Pulmonary embolism type: unspecified Qualified Code(s): I26.99 - Other pulmonary embolism without acute cor pulmonale Code(s): I26.99 - Other pulmonary embolism without acute cor pulmonale Status: Acute (8) Postobstructive pneumonia: Code(s): J18.9 - Pneumonia, unspecified organism Status: Acute Additional Plan 09/11/21 He has been started on a heparin drip and he will be monitored on telemetry overnight. Echocardiogram ordered to assess for heart strain though no evidence of such on chest CTA.. Venous Doppler ultrasounds of the lower extremities are pending to rule out DVT. Chest CT showed left hilar and subcarinal lymphadenopathy with occlusion of the left lower lobe bronchus which is suspicious for malignancy. This may very well be what has precipitated the pulmonary embolism. We will need to get in touch with his next of kin and/or [id number] to discuss the next step and whether not they would want to pursue a diagnosis and treatment in this unfortunate and chronically debilitated gentleman. He has been started on broad-spectrum antibiotics to include piperacillin/tazobactam, azithromycin, and vancomycin given suspected p Related to a combination of the above. Wean oxygen as tolerated; will likely need home oxygen evaluation before discharge. May be related to infection though with suspicions for lung malignancy, will obtain right upper quadrant ultrasound. He is dry on exam and by labs and will be cautiously hydrated with close monitoring of volume status. Bedside swallow ordered for a.m. as I suspect he may be at risk for aspiration. 09/12/21 -on a heparin drip and being monitored on telemetry. -echocardiogram ordered to assess for heart strain though no evidence of such on chest CTA. -Venous Doppler ultrasounds of the lower extremities are pending to rule out DVT. -chest CT showed left hilar and subcarinal lymphadenopathy with occlusion of the left lower lobe bronchus which is suspicious for malignancy. This may very well be what has precipitated the pulmonary embolism. -next of kin and/or [id number] to discuss the next step and whether not they would want to pursue a diagnosis and treatment in this unfortunate and chronically debilitated gentleman. -continue IV piperacillin/tazobactam, azithromycin, and vancomycin given suspected postobstructive pneumonia. Sputum culture in process. -related to a combination of acute PE, lung mass and pneumonia. -now saturating 95% on room air. -may be related to infection though with suspicions for lung malignancy, will obtain right upper quadrant ultrasound. -being hydrated with IV LR -Bedside swallow ordered to evaluate his risk for aspiration. -on admission, speech and swallow was consulted due to his clinical presentation. -I was called this morning by the swallow therapist who stated that since the patient is not following commands (she stated she got that information over the phone from the nurse), she cannot do a swallow evaluation today and that she will do the swallow evaluation tomorrow. -will switch fluids to dextrose-NS to prevent hypoglycemia. 09/13/21 This pt. was examined at the bedside in i
[2021-09-15] MEDS: POTASSIUM CHLORIDE INJ 40 MEQ in SODIUM CHLORIDE 0.9% IV 500 ML 130 MEQ IVPB (15:32)
[2021-09-15 15:56] LABS: Partial Thromboplastin Time 97.8 SECONDS (22.3-36.8)
[2021-09-15 16:26] LABS: Legionella pneumophila Ag Ur Not Detected (Not Detected)
[2021-09-15 16:33] LABS: Glucose Point of Care 90 mg/dl (65-105)
[2021-09-15] MEDS: DOXYCYCLINE 100 MG/NS 100 ML 100 MG/100 ML BAG 200 MG IVPB (18:47)
[2021-09-15] MEDS: DEXTROSE 5%/0.9% SOD CHL 1,000 ML 75 ML IV CONT (20:30)
[2021-09-15 23:37] LABS: Glucose Point of Care 122 mg/dl (65-105)
[2021-09-16] VITALS (12 sets, daily range): BP systolic 104–108; BP diastolic 46–76; PULSE 62–84; RESP 12–16; TEMP 36.7–37; O2SAT 96–97
[2021-09-16] MEDS: PIPERACILLIN/TAZOBACTAM SOD 4.5 GM in SODIUM CHLORIDE 0.9% IV 100 ML 200 ML IVPB ×4 (00:21→17:58)
[2021-09-16] MEDS: IPRATROPIUM BR 0.02% INH SOLN 0.5 MG/2.5 ML VIAL INHALATION ×4 (02:00→20:07)
[2021-09-16] MEDS: ALBUTEROL SULFATE NEB 2.5 MG/0.5 ML INH 5 MG INHALATION ×4 (02:00→20:07)
[2021-09-16 06:16] LABS: Glucose Point of Care 124 mg/dl (65-105)
[2021-09-16 08:18] LABS: Basophils Percent Auto 0.7 % (0.2-1.2); Eosinophils Absolute Auto 0.2 K/mm3 (0-0.3); Eosinophils Percent Auto 2.5 % (0-4.4); Hematocrit 33.5 % (42.0-52.0); Hemoglobin 10.4 g/dL (14.0-18.0); Immature Granulocyte Absolute 0.04 K/mm3 (0.00-0.031); Immature Granulocyte Percent A 0.7 % (0-0.5); Lymphocytes Absolute Auto 0.84 K/mm3 (0.9-3.2); Mean Corpuscular Hemoglobin 29.9 pg (26-34); Mean Corpuscular Volume 96.3 fl (80-100); Mean Platelet Volume 10.7 fl (7.4-10.4); Monocytes Absolute Auto 0.3 K/mm3 (0.1-0.6); Monocytes Percent Auto 5.5 % (2.6-8.5); Neutrophils Absolute Auto 4.6 K/mm3 (1.3-6.7); Neutrophils Percent Auto 76.6 % (45.5-73.1); Platelet Count Result 237 k/mm3 (150-375); Red Blood Count 3.48 M/mm3 (4.6-6.20); Red Cell Distribution Width 14.1 % (11.5-14.5)
[2021-09-16] MEDS: DOXYCYCLINE 100 MG/NS 100 ML 100 MG/100 ML BAG IVPB (08:19)
[2021-09-16 08:32] LABS: Alanine Aminotransferase 17 U/L (4-50); Albumin Level 2.2 g/dL (3.5-5.1); Alkaline Phosphatase 62 U/L (38-126); Anion Gap 2 mmol/L (8-16); Aspartate Amino Transferase 23 U/L (17-59); Bilirubin,Total 0.3 mg/dL (0.2-1.3); Blood Urea Nitrogen 4 mg/dL (9-20); Calcium 8.1 mg/dL (8.4-10.2); Carbon Dioxide 25 mmol/L (22-30); Chloride 113 mmol/L (98-107); Estimated CRCL calculation 54 ml/min; Estimated Glomerular Filt Rate 60; Glucose 121 mg/dL (65-110); Magnesium 2.1 mg/dL (1.6-2.3); Phosphorus 4.5 mg/dL (2.5-4.5); Potassium 3.3 mmol/L (3.4-5.0); Sodium 140 mmol/L (137-145)
[2021-09-16 09:07] LABS: Vancomycin Trough 28.1 ug/mL (10.0-20.0)
--- NOTE | 2021-09-16 09:18 | P.PNIM_ITS ---
Progress Note: A&P Assessment and Plan (1) Hypokalemia: Code(s): E87.6 - Hypokalemia Status: Acute (2) Dementia: Code(s): F03.90 - Unspecified dementia without behavioral disturbance Status: Acute (3) Elevated LFTs: Code(s): R79.89 - Other specified abnormal findings of blood chemistry Status: Acute (4) Dehydration: Code(s): E86.0 - Dehydration Status: Acute (5) Suspected malignant neoplasm of lung: Code(s): R68.89 - Other general symptoms and signs Status: Acute (6) Hypoxia: Code(s): R09.02 - Hypoxemia Status: Acute (7) Acute pulmonary embolism: Qualifiers: Acute cor pulmonale presence: without acute cor pulmonale Pulmonary embolism type: unspecified Qualified Code(s): I26.99 - Other pulmonary embolism without acute cor pulmonale Code(s): I26.99 - Other pulmonary embolism without acute cor pulmonale Status: Acute (8) Postobstructive pneumonia: Code(s): J18.9 - Pneumonia, unspecified organism Status: Acute Additional Plan 09/11/21 He has been started on a heparin drip and he will be monitored on telemetry overnight. Echocardiogram ordered to assess for heart strain though no evidence of such on chest CTA.. Venous Doppler ultrasounds of the lower extremities are pending to rule out DVT. Chest CT showed left hilar and subcarinal lymphadenopathy with occ lusion of the left lower lobe bronchus which is suspicious for malignancy. This may very well be what has precipitated the pulmonary embolism. We will need to get in touch with his next of kin and/or [id number] to discuss the next step and whether not they would want to pursue a diagnosis and treatment in this unfortunate and chronically debilitated gentleman. He has been started on broad-spectrum antibiotics to include piperacillin/tazobactam, azithromycin, and vancomycin given suspected p Related to a combination of the above. Wean oxygen as tolerated; will likely need home oxygen evaluation before discharge. May be related to infection though with suspicions for lung malignancy, will obtain right upper quadrant ultrasound. He is dry on exam and by labs and will be cautiously hydrated with close monitoring of volume status. Bedside swallow ordered for a.m. as I suspect he may be at risk for aspiration. 09/12/21 -on a heparin drip and being monitored on telemetry. -echocardiogram ordered to assess for heart strain though no evidence of such on chest CTA. -Venous Doppler ultrasounds of the lower extremities are pending to rule out DVT. -chest CT showed left hilar and subcarinal lymphadenopathy with occlusion of the left lower lobe bronchus which is suspicious for malignancy. This may very well be what has precipitated the pulmonary embolism. -next of kin and/or [id number] to discuss the next step and whether not they would want to pursue a diagnosis and treatment in this unfortunate and chronically debilitated gentleman. -continue IV piperacillin/tazobactam, azithromycin, and vancomycin given suspected postobstructive pneumonia. Sputum culture in process. -related to a combination of acute PE, lung mass and pneumonia. -now saturating 95% on room air. -may be related to infection though with suspicions for lung malignancy, will obtain right upper quadrant ultrasound. -being hydrated with IV LR -Bedside swallow ordered to evaluate his risk for aspiration. -on admission, speech and swallow was consulted due to his clinical presentation. -I was called this morning by the swallow therapist who stated hannah
--- NOTE | 2021-09-16 10:32 | PC.NURSE ---
pt is on cont. heparin drip. a PTT has not been drawn since yesterday 09/15/21 at 1531. Notified mill house supervisor and hospitalist, Kerri. ordered for a stat PTT to be drawn, once we know that result, the heparin drip will be continued.
[2021-09-16 11:05] LABS: Partial Thromboplastin Time 35.8 SECONDS (22.3-36.8)
--- NOTE | 2021-09-16 11:10 | PCNFU ---
Addendum entered by Gaby Mejia RD, LDN 09/16/21 11:29: Initiate tube feed at 20ml/hr, increase by 10ml/hr q 4hrs to goal rate. Original Note: Nutrition Follow-Up Complete: Inadequate energy intake related to NPO as evidenced by nursing report and no diet order for 6 days now Goal: Meet nutritional needs Pt current nutrition is NPO. GI consult for PEG placement today. Nutrition recommendation: Initiate tube feed for alternative nutrition support. Last recorded weight is 74.8 kg - wt decrease by 4kg. Bowel Motility: +BM 5/3 Labs Reviewed: Alb:2.2, k:3.3, BUN:4, GLU: 121 Meds Noted:Remeron, Novolog Skin: Stage II to L buttocks Additional Notes: Nutrition recommendation for tube feed initiation pending GI/PEG placement. Rec is for Jevity 1.5 @ goal rate of 65ml/hr with 45ml flushes, calculated over 22 hrs to provide: 2145kcals, 91g PRO, 2076ml. Also recommend to add RICHARD BID via tube for additional wound healing needs, to provide and additional 160kcals, 5g PRO. Monitor for tube feeding initiation and tolerance, wt, labs, skin. Follow up T/F.
[2021-09-16] MEDS: HEPARIN SOD/D5W 100 UNITS/ML 25,000 UNITS/250 ML BAG 17 UNITS IV CONT (11:34)
[2021-09-16] MEDS: POTASSIUM CHLORIDE INJ 40 MEQ in SODIUM CHLORIDE 0.9% IV 500 ML 130 MEQ IVPB (11:35)
[2021-09-16] MEDS: HEPARIN SODIUM 5,000 UNITS/ML VIAL 5500 UNITS IV PUSH (11:35)
[2021-09-16] MEDS: DEXTROSE 5%/0.9% SOD CHL 1,000 ML 75 ML IV CONT (11:50)
[2021-09-16 15:48] LABS: Glucose Point of Care 109 mg/dl (65-105)
[2021-09-16 17:00] LABS: Glucose Point of Care 105 mg/dl (65-105)
[2021-09-16 18:04] LABS: Partial Thromboplastin Time 80.4 SECONDS (22.3-36.8)
[2021-09-16] MEDS: DOXYCYCLINE 100 MG/NS 100 ML 100 MG/100 ML BAG 200 MG IVPB (20:37)
[2021-09-17] VITALS (11 sets, daily range): BP systolic 97–138; BP diastolic 61–73; PULSE 61–82; RESP 12–18; TEMP 36.6; O2SAT 94–100
[2021-09-17] MEDS: PIPERACILLIN/TAZOBACTAM SOD 4.5 GM in SODIUM CHLORIDE 0.9% IV 100 ML 200 ML IVPB ×4 (00:01→17:03)
[2021-09-17] MEDS: HEPARIN SOD/D5W 100 UNITS/ML 25,000 UNITS/250 ML BAG 17 UNITS IV CONT (00:02)
[2021-09-17 00:16] LABS: Glucose Point of Care 127 mg/dl (65-105)
[2021-09-17 00:46] LABS: Partial Thromboplastin Time 102.6 SECONDS (22.3-36.8)
[2021-09-17] MEDS: ALBUTEROL SULFATE NEB 2.5 MG/0.5 ML INH 5 MG INHALATION ×4 (02:13→20:27)
[2021-09-17] MEDS: IPRATROPIUM BR 0.02% INH SOLN 0.5 MG/2.5 ML VIAL INHALATION ×4 (02:13→20:27)
[2021-09-17 05:57] LABS: Glucose Point of Care 126 mg/dl (65-105)
[2021-09-17 06:28] LABS: Estimated CRCL calculation 47 ml/min; Estimated Glomerular Filt Rate 50
[2021-09-17] MEDS: DOXYCYCLINE 100 MG/NS 100 ML 100 MG/100 ML BAG IVPB ×2 (08:14→21:16)
[2021-09-17 08:16] LABS: Partial Thromboplastin Time 171.5 SECONDS (22.3-36.8)
[2021-09-17 11:52] LABS: Glucose Point of Care 138 mg/dl (65-105)
[2021-09-17] MEDS: DEXTROSE 5%/0.9% SOD CHL 1,000 ML 75 ML IV CONT (12:10)
[2021-09-17 12:16] LABS: Partial Thromboplastin Time 134.5 SECONDS (22.3-36.8)
--- NOTE | 2021-09-17 12:55 | PC.NURSE ---
Pt had a critical PTT of 171.5 at 0816. Protocol is to hold heparin drip for 1 hour and decrease rate by 2 mL/hr. Heparin drip was restarted at 0916 at a rate of 15 mL/hr. Pt's PTT was drawn at 1144 and was 134.5. Protocol is to hold heparin drip for 1 hour and decrease rate by 2 mL/hr. Heparin drip was restarted at 1244 at a rate of 13 mL/hr. Dr. Manning aware of critical PTT and holding of heparin per protocol.
[2021-09-17] MEDS: HEPARIN SOD/D5W 100 UNITS/ML 25,000 UNITS/250 ML BAG 13 UNITS IV CONT (17:04)
[2021-09-17 17:05] LABS: Glucose Point of Care 114 mg/dl (65-105)
[2021-09-17 17:58] LABS: Partial Thromboplastin Time 179.5 SECONDS (22.3-36.8)
--- NOTE | 2021-09-17 18:03 | WPDGICN ---
Assessment and Plan Assessment and plan (1) Dysphagia: Code(s): R13.10 - Dysphagia, unspecified Status: Acute Assessment and Plan: speech therapy evaluation concluded that he won't be able to safely swallow and will need G-tube placement I would like to wait another few days to give him so time to recover from PE and pneumonia, also he is on iv heparin in the meantime he can have DHT with tube feeding until he can be in more stable condition to have anesthesia for G-tube placement (2) Acute pulmonary embolism: Qualifiers: Acute cor pulmonale presence: without acute cor pulmonale Pulmonary embolism type: unspecified Qualified Code(s): I26.99 - Other pulmonary embolism without acute cor pulmonale Code(s): I26.99 - Other pulmonary embolism without acute cor pulmonale Status: Acute Assessment and Plan: on iv heparin (3) Postobstructive pneumonia: Code(s): J18.9 - Pneumonia, unspecified organism Status: Acute Assessment and Plan: on abx pulmonary on board (4) Suspected malignant neoplasm of lung: Code(s): R68.89 - Other general symptoms and signs Status: Acute Assessment and Plan: will need another CT and follow-up with pulmonary (5) Dementia: Code(s): F03.90 - Unspecified dementia without behavioral disturbance Status: Acute (6) Dehydration: Code(s): E86.0 - Dehydration Status: Acute GI Consult Note Consult date/time: 09/17/21 18:03 Reason for consult: dysphagia HPI: Chandana Osborne is a 66 year old male with history of dementia who is nonverbal and lives at [place]. He was admitted to the hospital on 09/11 with a fast heart rate and low oxygen saturations. He had white blood cell count of 11.4, creatinine 0.8, RT PCR for COVID was negative, troponins were negative x4. BNP was 391. CT angiogram of the chest reviewed and showed revealed right middle lobe, right lower lobe pulmonary emboli as well as left hilar and subcarinal lymphadenopathy with consolidation of the left lower lobe. Patient was started on IV heparin drip and antibiotics, also evaluated by pulmonary. Patient did not pass swallow test and primary asking for possible PEG placement. Review of Systems Review of Systems: ROS unobtainable: Yes unobtainable due to medical condition and unobtainable due to mental status PMFSH Past Medical History Medical History (Updated 09/17/21 @ 18:07 by Jesus Ray MD) Dementia Depression Dysphagia Surgical History Surgical History (Updated 09/11/21 @ 18:00 by Ayesha Bob PA-C) Surgical history unknown Family History Family History (Updated 09/11/21 @ 18:00 by Ayesha Bob PA-C) Other Family history unknown Social History Social History (Updated 09/11/21 @ 18:02 by Ayesha Bob PA-C) Social History: Surrogate decision maker: Giancarlo Cardona. Code status: Full code. Smoking status: Unknown if ever smoked Alcohol intake: unknown Substance use: unknown Additional living arrangements comments: Resident of [place]. Spiritual care concerns: No Meds Home Medications and Allergies Home Medications Medication Instructions Recorded Confirmed Type acetaminophen 650 mg PO Q6H PRN 09/11/21 09/11/21 History bupropion HCl 75 mg PO DAILY 09/11/21 09/11/21 History cholecalciferol (vitamin D3) 1,250 mcg PO WEEKLY 09/11/21 09/11/21 History citalopram 20 mg PO DAILY 09/11/21 09/11/21 History donepezil 10 mg PO HS 09/11/21 09/11/21 History mirtazapine 15 mg PO DAILY 09/11/21 09/11/21 History Allergies Allergy/AdvReac Type Severity Reaction Status Date / Time No Known Allergies Allergy Verified 09/11/21 15:41 Vital Signs Vital Signs - 24 hr 09/16/21 20:00 09/16/21 20:07 09/16/21 20:14 Temperature 98.6 F Pulse Rate 78 74 74 Respiratory Rate 14 14 14 Blood Pressure 104/46 L Pulse Oximetry 96 96 09/16/21 20:30 09/17/21 02:0
--- NOTE | 2021-09-17 18:12 | PC.NURSE ---
critical PTT of 179.5 called at 1758 on 09/17/21. protocol to hold infusion for 1 hour and decrease rate by 2 mL/hr once restarted. Notified Dr. Manning.
[2021-09-17] MEDS: SODIUM CHLORIDE 0.9% IV 1,000 ML 75 ML IV CONT (18:28)
[2021-09-17 18:47] LABS: Basophils Percent Auto 0.6 % (0.2-1.2); Eosinophils Absolute Auto 0.1 K/mm3 (0-0.3); Eosinophils Percent Auto 2.4 % (0-4.4); Hemoglobin 10.2 g/dL (14.0-18.0); Immature Granulocyte Absolute 0.03 K/mm3 (0.00-0.031); Immature Granulocyte Percent A 0.6 % (0-0.5); Lymphocytes Absolute Auto 1.04 K/mm3 (0.9-3.2); Lymphocytes Percent Auto 19.4 % (18.3-44.2); Mean Corpuscular HGB Conc 30.9 g/dl (32-36); Mean Corpuscular Hemoglobin 29.6 pg (26-34); Mean Corpuscular Volume 95.7 fl (80-100); Mean Platelet Volume 10.6 fl (7.4-10.4); Monocytes Absolute Auto 0.3 K/mm3 (0.1-0.6); Neutrophils Absolute Auto 3.8 K/mm3 (1.3-6.7); Platelet Count Result 252 k/mm3 (150-375); Red Blood Count 3.45 M/mm3 (4.6-6.20); Red Cell Distribution Width 14.6 % (11.5-14.5); White Blood Count 5.4 K/mm3 (4.5-10.0)
[2021-09-17 18:58] LABS: Partial Thromboplastin Time 94.2 SECONDS (22.3-36.8)
[2021-09-17 18:59] LABS: Alanine Aminotransferase 19 U/L (4-50); Albumin Level 2.3 g/dL (3.5-5.1); Alkaline Phosphatase 63 U/L (38-126); Anion Gap 3 mmol/L (8-16); Aspartate Amino Transferase 30 U/L (17-59); Bilirubin,Total 0.4 mg/dL (0.2-1.3); Blood Urea Nitrogen 4 mg/dL (9-20); Calcium 8.4 mg/dL (8.4-10.2); Carbon Dioxide 25 mmol/L (22-30); Chloride 115 mmol/L (98-107); Estimated CRCL calculation 44 ml/min; Estimated Glomerular Filt Rate 47; Glucose 113 mg/dL (65-110); Magnesium 2.1 mg/dL (1.6-2.3); Sodium 143 mmol/L (137-145)
[2021-09-17 19:06] LABS: Transferrin 87 mg/dL (206-381)
[2021-09-17 23:55] LABS: Partial Thromboplastin Time 95.6 SECONDS (22.3-36.8)
[2021-09-18] VITALS (9 sets, daily range): BP systolic 113–136; BP diastolic 51–77; PULSE 61–69; RESP 12–18; TEMP 36.3–36.8; O2SAT 94–98
[2021-09-18] MEDS: HEPARIN SOD/D5W 100 UNITS/ML 25,000 UNITS/250 ML BAG 11 UNITS IV CONT ×2 (00:04→17:14)
--- NOTE | 2021-09-18 00:08 | PC.NURSE ---
Addendum entered by Margaret Lopez RN 09/18/21 02:35: unchanged = not charted in MAR Original Note: Pt's Heparin gtt was at 11 ml/hr at shift change and reported as such by prior RN. Pt's PTT came back therapeutic so this RN is keeping rate at 11 ml/hr and not the 13 ml/hr this is unchanged by prior RN.
[2021-09-18 00:18] LABS: Glucose Point of Care 111 mg/dl (65-105)
[2021-09-18] MEDS: PIPERACILLIN/TAZOBACTAM SOD 4.5 GM in SODIUM CHLORIDE 0.9% IV 100 ML 200 ML IVPB ×3 (01:30→17:11)
[2021-09-18] MEDS: IPRATROPIUM BR 0.02% INH SOLN 0.5 MG/2.5 ML VIAL INHALATION ×4 (02:35→21:15)
[2021-09-18] MEDS: ALBUTEROL SULFATE NEB 2.5 MG/0.5 ML INH 5 MG INHALATION ×4 (02:35→21:15)
[2021-09-18 06:02] LABS: Anion Gap 5 mmol/L (8-16); Blood Urea Nitrogen 5 mg/dL (9-20); Calcium 8.9 mg/dL (8.4-10.2); Carbon Dioxide 24 mmol/L (22-30); Chloride 117 mmol/L (98-107); Estimated CRCL calculation 41 ml/min; Estimated Glomerular Filt Rate 43; Glucose 104 mg/dL (65-110); Phosphorus 4.2 mg/dL (2.5-4.5); Potassium 4.2 mmol/L (3.4-5.0); Sodium 146 mmol/L (137-145)
[2021-09-18 06:17] LABS: Glucose Point of Care 92 mg/dl (65-105)
--- NOTE | 2021-09-18 06:47 | PC.NURSE ---
Pt's PIV access was d/c d/t pt's movement while sleeping. 1 PIV was established for continuous heparin gtt. Fluids and RXs are on pause at this time until further access is established.
[2021-09-18 07:12] LABS: Glucose Point of Care 109 mg/dl (65-105)
--- NOTE | 2021-09-18 10:58 | PM.CNNEP ---
Assessment and Plan Additional Plan 1. the patient has acute kidney injury. This is non oliguric. The creatinine is rising very slowly and gradually. He does not look toxic with hypotension or fever. This sounds like it could be a medication reaction. He did receive contrast on the . He also was on atbs and so couldd be having a reaction to these Rhabdomyolysis is also possibility. We can check a CK. Obstruction is always a possibility. Will check a renal ultrasound. Other possibilities such as glomerulonephritis and vascular disease are less likely. 2. The patient has seen out dementia. He is nonverbal. 3. The patient has pulmonary embolism. He is on anticoagulants. 4. He has pneumonia. He is getting antibiotics History of Present Illness Reason for Consult Consult date: 09/18/21 Chief Complaint Chief complaint: Acute pulmonary embolism/pneumonia History of Present Illness Narrative: Chandana is a very pleasant 66-year-old gentleman who has dementia, nonverbal, depression, pulmonary embolism, DVT. The patient came in the hospital because of abnormal vital signs. He was tachypneic and tachycardic apparently at the longterm. Went to the ER and he was evaluated found to have a positive D-dimer so he had a CT angiogram which showed an embolus. He was admitted. He was given some antibiotics due to pneumonia. On admission his creatinine was 0.6. It is gradually risen very slowly 2.7 then 0.8 then 1.2 then 1.4, 1.5, and now 1.6 so renal consultation was requested. The patient cannot give a history. Allergies are none. Social history he does not currently smoke or drink. Review of Systems Review of Systems: ROS unobtainable: Yes unobtainable due to medical condition [facility] Past Medical History Medical History Dementia Depression Dysphagia Surgical History Surgical History Surgical history unknown Family History Family History Other Family history unknown Social History Social History Social History: Surrogate decision maker: Giancarlo Cardona. Code status: Full code. Smoking status: Unknown if ever smoked Alcohol intake: unknown Substance use: unknown Additional living arrangements comments: Resident of [place]. Spiritual care concerns: No Meds Home Medications and Allergies Home Medications Medication Instructions Recorded Confirmed Type acetaminophen 650 mg PO Q6H PRN 09/11/21 09/11/21 History bupropion HCl 75 mg PO DAILY 09/11/21 09/11/21 History cholecalciferol (vitamin D3) 1,250 mcg PO WEEKLY 09/11/21 09/11/21 History citalopram 20 mg PO DAILY 09/11/21 09/11/21 History donepezil 10 mg PO HS 09/11/21 09/11/21 History mirtazapine 15 mg PO DAILY 09/11/21 09/11/21 History Allergies Allergy/AdvReac Type Severity Reaction Status Date / Time No Known Allergies Allergy Verified 09/11/21 15:41 Vital Signs Vital Signs - 24 hr 09/17/21 13:54 09/17/21 13:58 09/17/21 14:00 Temperature 36.6 C Pulse Rate 61 64 62 Respiratory Rate 12 13 16 Blood Pressure 138/73 Pulse Oximetry 96 09/17/21 20:00 09/17/21 20:24 09/17/21 20:32 Temperature Pulse Rate 69 70 Respiratory Rate 12 12 Blood Pressure Pulse Oximetry 100 09/18/21 02:32 09/18/21 02:40 09/18/21 06:00 Temperature 36.3 C L Pulse Rate 62 67 69 Respiratory Rate 12 12 18 Blood Pressure 136/51 L Pulse Oximetry 98 09/18/21 06:58 Temperature Pulse Rate 68 Respiratory Rate 14 Blood Pressure Pulse Oximetry Exam Narrative: Exam Narrative: Well developed well-nourished Nonverbal male in no acute distress Skin is warm and dry without rash Head normocephalic atraumatic Eyes normal sclerae and conjunctivae Mouth normal
[2021-09-18] MEDS: DOXYCYCLINE 100 MG/NS 100 ML 100 MG/100 ML BAG IVPB ×2 (11:20→21:01)
[2021-09-18 11:33] LABS: Glucose Point of Care 95 mg/dl (65-105)
--- NOTE | 2021-09-18 11:55 | PCNFU ---
Nutrition Follow-Up Complete: Inadequate energy intake related to NPO as evidenced by nursing report and no diet order for 5 days. goal: Meet nutritional needs Patient has limited progress towards goal. Pt current nutrition is NPO x 4 days. Last recorded weight is 79.2 kg, up from 78 kg on admit. Bowel Motility:+BM reported 5/6 Labs Reviewed:Cr 1.6, Na 146, BUN 5, GFR 43 Meds Noted:Remeron, NovoLog, Atrovent, Vibramycin Skin: Stage II PU-left buttock Additional Notes: Patient in nonverbal. Spoke with nursing today regarding nutrition. Plans for PPN today. Patient has a peripheral line. PPN Recommendation: Clinimix 4.25/5 at 80 ml/hr with 250 ml 20% of Lipid Emulsion providing 1153 kcals/82 gms protein. Meeting 54% of caloric needs and 100% protein needs. Plans for PEG Tuesday. Tube feeding recommendations: Jevity 1.5 at 20 ml/hr over 22 hours increase by 20 ml q 4 hours to goal rate of 65 ml/hr over 22 hours. Free water flush 45 ml q 4 hours. Agree with diet orders. Monitoring: diet order, wt, labs. Follow up in 3 days.
[2021-09-18 12:57] LABS: Creatine Kinase < 20 U/L (55-170)
[2021-09-18 13:44] LABS: Sodium Urine Random 155 meq/L
[2021-09-18 13:44] LABS: Creatinine Urine 46.8 mg/dL; Total Protein Urine Random 20 mg/dL; Ur Ttl Prot Creatinine Ratio 0.43 mg/mg (0-0.20)
[2021-09-18] MEDS: SODIUM CHLORIDE 0.9% IV 1,000 ML 75 ML IV CONT (13:56)
[2021-09-18 16:33] LABS: Glucose Point of Care 88 mg/dl (65-105)
--- NOTE | 2021-09-18 18:10 | WPDGIPROGNO ---
Progress Note: A&P Assessment and Plan (1) Dysphagia: Code(s): R13.10 - Dysphagia, unspecified Status: Acute Assessment and Plan: he did not pass swallow test and recommendation for g-tube will reassess this weekend and see if we could place G-tube- multiple problems including PE, pneumonia, etc in the meantime he can have a dobbhoff tube for feeding (2) Dementia: Code(s): F03.90 - Unspecified dementia without behavioral disturbance Status: Acute (3) Suspected malignant neoplasm of lung: Code(s): R68.89 - Other general symptoms and signs Status: Acute Assessment and Plan: pulmonary on board (4) Postobstructive pneumonia: Code(s): J18.9 - Pneumonia, unspecified organism Status: Acute Assessment and Plan: on antibiotics he is not requiring oxygen (5) Acute pulmonary embolism: Qualifiers: Acute cor pulmonale presence: without acute cor pulmonale Pulmonary embolism type: unspecified Qualified Code(s): I26.99 - Other pulmonary embolism without acute cor pulmonale Code(s): I26.99 - Other pulmonary embolism without acute cor pulmonale Status: Acute Assessment and Plan: on treatment (6) ARIANNE (acute kidney injury): Code(s): N17.9 - Acute kidney failure, unspecified Status: Acute Assessment and Plan: on treatment, nephrology on board Subjective Date/time seen: 09/18/21 18:10 Interval history: no changes, stable Review of Systems Review of Systems: All systems reviewed & are unremarkable except as noted in HPI and below Exam Const: General: comfortable and no acute distress Other: Chronically ill-appearing lying in bed alert but nonverbal which is reportedly his baseline HENMT: General nose exam: Normal nares present Eyes: General: appearance normal, both eyes and all related structures Neck: Neck: no JVD Resp: Auscultation: no crackles and diminished lung sounds Cardio: Rate: regular rate Rhythm: regular rhythm GI: Inspection: non-distended GI Palp: Yes Soft to palpation and No Guarding due to palpation present (GI) Auscultation: normal bowel sounds Skin: General skin exam: normal color Neuro: Cognition (Neuro): abnormal cognition Other: awake but not following commands- ? baseline Extrem: General: normal to inspection Objective Data Vital Signs Vital Signs: Vital Signs - 24 hr 09/17/21 20:00 09/17/21 20:24 09/17/21 20:32 Temperature Pulse Rate 69 70 Respiratory Rate 12 12 Blood Pressure Pulse Oximetry 100 09/18/21 02:32 09/18/21 02:40 09/18/21 06:00 Temperature 97.4 F L Pulse Rate 62 67 69 Respiratory Rate 12 12 18 Blood Pressure 136/51 L Pulse Oximetry 98 09/18/21 06:58 09/18/21 12:10 09/18/21 14:00 Temperature 98.3 F Pulse Rate 68 66 61 Respiratory Rate 14 14 16 Blood Pressure Pulse Oximetry 94 Intake/Output Intake/Output: Intake & Output 09/15/21 09/16/21 09/17/21 09/18/21 23:59 23:59 23:59 23:59 Intake Total 2600 2100 2100 2049 Output Total 650 3250 2525 1150 Balance 7464 -9569 -136 900 Meds/Results Medications: Active Medications Generic Name Dose Route Start Last Admin Trade Name Freq PRN Reason Stop Dose Admin Acetaminophen 650 mg 09/11/21 18:21 Acetaminophen 325 Mg Tablet PO Q6H PRN Pain Albuterol 5 mg 09/11/21 14:00 09/18/21 12:10 Albuterol Sulfate Neb 2.5 Mg/0.5 Ml Inh INHALATION 5 mg Q6HRT JESSICA Administration Albuterol 2 puff 09/11/21 18:16 Albuterol Sulfate (*Sp) Aerosol 1 Puff INHALATION QIDRT PRN Shortness Of Breath Bupropion HCl 75 mg 09/12/21 09:00 09/18/21 09:07 Bupropion Hcl 75 Mg Tablet PO Not Given DAILY JESSICA Citalopram Hydrobromide 20 mg 09/12/21 09:00 09/18/21 09:07 Citalopram Hydrobromide 20 Mg Tablet PO Not Given DAILY JESSICA Dextrose 12.5 gm 09/11/21 23:33 Dextrose 50% 25 Gm/50 Ml Syringe IV PUSH PRN PRN
[2021-09-18 19:06] LABS: Triglycerides 96 mg/dL (<150)
[2021-09-18 21:33] LABS: Vancomycin Trough 27.1 ug/mL (10.0-20.0)
[2021-09-19] VITALS (9 sets, daily range): BP systolic 90–106; BP diastolic 57–60; PULSE 51–71; RESP 12–16; TEMP 36.5–36.8; O2SAT 9–98
[2021-09-19 00:28] LABS: Glucose Point of Care 84 mg/dl (65-105)
[2021-09-19] MEDS: PIPERACILLIN/TAZOBACTAM SOD 4.5 GM in SODIUM CHLORIDE 0.9% IV 100 ML 200 ML IVPB ×3 (00:58→11:53)
[2021-09-19] MEDS: ALBUTEROL SULFATE NEB 2.5 MG/0.5 ML INH 5 MG INHALATION ×3 (01:21→20:53)
[2021-09-19] MEDS: IPRATROPIUM BR 0.02% INH SOLN 0.5 MG/2.5 ML VIAL INHALATION ×3 (01:21→20:53)
[2021-09-19 06:01] LABS: Glucose Point of Care 97 mg/dl (65-105)
[2021-09-19 06:23] LABS: Basophils Percent Auto 0.6 % (0.2-1.2); Eosinophils Absolute Auto 0.1 K/mm3 (0-0.3); Hematocrit 36.2 % (42.0-52.0); Hemoglobin 11.1 g/dL (14.0-18.0); Immature Granulocyte Absolute 0.03 K/mm3 (0.00-0.031); Immature Granulocyte Percent A 0.5 % (0-0.5); Lymphocytes Absolute Auto 1.11 K/mm3 (0.9-3.2); Mean Corpuscular HGB Conc 30.7 g/dl (32-36); Mean Corpuscular Hemoglobin 29.8 pg (26-34); Mean Corpuscular Volume 97.1 fl (80-100); Mean Platelet Volume 10.7 fl (7.4-10.4); Monocytes Absolute Auto 0.4 K/mm3 (0.1-0.6); Monocytes Percent Auto 5.8 % (2.6-8.5); Neutrophils Absolute Auto 4.8 K/mm3 (1.3-6.7); Neutrophils Percent Auto 74.1 % (45.5-73.1); Platelet Count Result 257 k/mm3 (150-375); Red Blood Count 3.73 M/mm3 (4.6-6.20); Red Cell Distribution Width 14.6 % (11.5-14.5); White Blood Count 6.5 K/mm3 (4.5-10.0)
[2021-09-19] MEDS: SODIUM CHLORIDE 0.9% IV 1,000 ML 75 ML IV CONT (06:23)
[2021-09-19 06:35] LABS: Albumin Level 2.5 g/dL (3.5-5.1); Anion Gap 5 mmol/L (8-16); Blood Urea Nitrogen 6 mg/dL (9-20); Calcium 8.6 mg/dL (8.4-10.2); Carbon Dioxide 24 mmol/L (22-30); Chloride 115 mmol/L (98-107); Estimated CRCL calculation 46 ml/min; Estimated Glomerular Filt Rate 50; Glucose 92 mg/dL (65-110); Phosphorus 3.8 mg/dL (2.5-4.5); Potassium 3.4 mmol/L (3.4-5.0); Sodium 144 mmol/L (137-145)
[2021-09-19] MEDS: DOXYCYCLINE 100 MG/NS 100 ML 100 MG/100 ML BAG IVPB ×2 (08:10→21:47)
--- NOTE | 2021-09-19 09:22 | PCRCNOTE ---
0800 tx: pt refusing RT to placed the neb tx on pt, notified nurse of refusal.
[2021-09-19 09:33] LABS: Partial Thromboplastin Time 71.5 SECONDS (22.3-36.8)
[2021-09-19 11:42] LABS: Glucose Point of Care 84 mg/dl (65-105)
[2021-09-19 12:34] LABS: Basophils Absolute Auto 0.1 K/mm3 (0.0-0.1); Basophils Percent Auto 0.7 % (0.2-1.2); Eosinophils Absolute Auto 0.1 K/mm3 (0-0.3); Eosinophils Percent Auto 1.5 % (0-4.4); Hemoglobin 10.8 g/dL (14.0-18.0); Immature Granulocyte Absolute 0.03 K/mm3 (0.00-0.031); Immature Granulocyte Percent A 0.4 % (0-0.5); Lymphocytes Absolute Auto 1.38 K/mm3 (0.9-3.2); Lymphocytes Percent Auto 18.3 % (18.3-44.2); Mean Corpuscular Hemoglobin 29.7 pg (26-34); Mean Corpuscular Volume 98.9 fl (80-100); Monocytes Absolute Auto 0.6 K/mm3 (0.1-0.6); Monocytes Percent Auto 8.1 % (2.6-8.5); Neutrophils Absolute Auto 5.4 K/mm3 (1.3-6.7); Platelet Count Result 232 k/mm3 (150-375); Red Blood Count 3.64 M/mm3 (4.6-6.20); Red Cell Distribution Width 14.8 % (11.5-14.5); White Blood Count 7.5 K/mm3 (4.5-10.0)
--- NOTE | 2021-09-19 12:38 | PM.PNNEP ---
Progress Note: A&P Assessment and Plan (1) ARIANNE (acute kidney injury): Code(s): N17.9 - Acute kidney failure, unspecified Status: Acute Assessment and Plan: resolving possibly due to contrast versus medications related(?) evaluation to date: renal ultrasound normal CPK low urine electrolytes non-prerenal follow trend of repeat labs and UOP (2) Acute pulmonary embolism: Qualifiers: Acute cor pulmonale presence: without acute cor pulmonale Pulmonary embolism type: unspecified Qualified Code(s): I26.99 - Other pulmonary embolism without acute cor pulmonale Code(s): I26.99 - Other pulmonary embolism without acute cor pulmonale Status: Acute Assessment and Plan: on anticoagulation (heparin gtt) switch to eliquis or coumadin(?) (3) Pneumonia: Qualifiers: Laterality: unspecified laterality Lung location: unspecified part of lung Pneumonia type: due to unspecified organism Qualified Code(s): J18.9 - Pneumonia, unspecified organism Code(s): J18.9 - Pneumonia, unspecified organism Status: Acute Assessment and Plan: on IV antibiotics follow culture data Will continue to follow. Subjective Date/time seen: 09/19/21 12:38 Chart reviewed - assuming care from Dr. Mcallister; remains in bed in no apparent distress; history limited due to his known non-verbal state; no apparent issues/events/problems overnight or earlier this AM. Exam Narrative: General: elderly male in NAD; non-verbal Heart: normal S1 and S2; no rub Lungs: clear to auscultation Abdomen: soft, nontender, nondistended, positive bowel sounds Extremities: no cyanosis or clubbing; no edema Skin: warm and dry Objective Data Vital Signs Vital Signs: Vital Signs Temp Pulse Resp BP Pulse Ox 09/19/21 05:56 71 14 90/59 L 96 09/19/21 01:33 55 L 12 09/19/21 01:25 51 L 12 09/18/21 21:28 69 12 09/18/21 21:14 67 12 09/18/21 21:01 68 18 113/77 09/18/21 14:00 36.8 C 61 16 94 Intake/Output Intake/Output: Intake & Output 09/16/21 09/17/21 09/18/21 09/19/21 23:59 23:59 23:59 23:59 Intake Total 2100 2100 2250 1400 Output Total 3250 0942 1150 8169 Balance -8772 -262 1100 -50 Meds/Results Medications: Active Medications Generic Name Dose Route Start Last Admin Trade Name Freq PRN Reason Stop Dose Admin Acetaminophen 650 mg 09/11/21 18:21 Acetaminophen 325 Mg Tablet PO Q6H PRN Pain Albuterol 5 mg 09/11/21 14:00 09/19/21 09:22 Albuterol Sulfate Neb 2.5 Mg/0.5 Ml Inh INHALATION Not Given Q6HRT JESSICA Albuterol 2 puff 09/11/21 18:16 Albuterol Sulfate (*Sp) Aerosol 1 Puff INHALATION QIDRT PRN Shortness Of Breath Bupropion HCl 75 mg 09/12/21 09:00 09/19/21 08:09 Bupropion Hcl 75 Mg Tablet PO Not Given DAILY JESSICA Citalopram Hydrobromide 20 mg 09/12/21 09:00 09/19/21 08:09 Citalopram Hydrobromide 20 Mg Tablet PO Not Given DAILY JESSICA Dextrose 12.5 gm 09/11/21 23:33 Dextrose 50% 25 Gm/50 Ml Syringe IV PUSH PRN PRN Hypoglycemia Protocol Donepezil HCl 10 mg 09/11/21 21:00 09/18/21 21:07 Donepezil Hcl 10 Mg Tablet PO Not Given HS JESSICA Ergocalciferol 5,000 unit 09/15/21 09:00 09/15/21 08:53 Ergocalciferol 50,000 Unit Capsule PO Not Given Tu@0900 JESSICA Glucagon 1 mg 09/11/21 23:33 Glucagon For Inj 1 Mg Vial IM PRN PRN Hypoglycemia Protocol Glucose 15 gm 09/11/21 23:33 Glucose Oral Gel 15 Gm Of Glucse In 37.5 Gm Tube PO PRN PRN Hypoglycemia Protocol Heparin Sodium (Porcine) 5,500 units 09/11/21 11:48 09/16/21 11:35 Heparin Sodium 5,000 Units/Ml Vial IV PUSH 5,500 units PRN PRN Administration aPTT less than 55 seconds Heparin Sodium (Porcine) 2,500 units 09/11/21 11:48 Heparin Sodium 5,000 Units/Ml Vial IV PUSH PRN PRN aPTT 55 - 70 sec
[2021-09-19 12:44] LABS: Partial Thromboplastin Time 50.2 SECONDS (22.3-36.8)
[2021-09-19 12:46] LABS: Alanine Aminotransferase 23 U/L (4-50); Albumin Level 2.6 g/dL (3.5-5.1); Alkaline Phosphatase 55 U/L (38-126); Anion Gap 6 mmol/L (8-16); Aspartate Amino Transferase 30 U/L (17-59); Bilirubin,Total 0.6 mg/dL (0.2-1.3); Blood Urea Nitrogen 7 mg/dL (9-20); Calcium 8.6 mg/dL (8.4-10.2); Carbon Dioxide 21 mmol/L (22-30); Chloride 115 mmol/L (98-107); Estimated CRCL calculation 50 ml/min; Estimated Glomerular Filt Rate 55; Glucose 84 mg/dL (65-110); Magnesium 2.1 mg/dL (1.6-2.3); Sodium 142 mmol/L (137-145)
[2021-09-19 12:53] LABS: Transferrin 94 mg/dL (206-381)
[2021-09-19] MEDS: AMINO ACIDS 4.25%/D5W/LYTES/CA 2,000 ML 80 ML IV CONT (15:08)
[2021-09-19] MEDS: HEPARIN SOD/D5W 100 UNITS/ML 25,000 UNITS/250 ML BAG 11 UNITS IV CONT (15:09)
--- NOTE | 2021-09-19 17:41 | WPDGIPROGNO ---
Progress Note: A&P Additional Plan [facility] 19 Sep 2021 Non-verbal. VSS soft/NT A/P Dysphagia; failed MBS with concern for aspiration of po: - Plan for EGD with PEG Tuesday09-21-2021 - Will need to hold heparin NKECHI [place] [phone] Subjective Date/time seen: 09/19/21 17:41 Objective Data Vital Signs Vital Signs: Vital Signs - 24 hr 09/18/21 21:01 09/18/21 21:14 09/18/21 21:28 Temperature Pulse Rate 68 67 69 Respiratory Rate 18 12 12 Blood Pressure 113/77 Pulse Oximetry 09/19/21 01:25 09/19/21 01:33 09/19/21 05:56 Temperature Pulse Rate 51 L 55 L 71 Respiratory Rate 12 12 14 Blood Pressure 90/59 L Pulse Oximetry 96 09/19/21 14:00 09/19/21 15:03 09/19/21 15:10 Temperature 36.5 C Pulse Rate 68 57 L 56 L Respiratory Rate 16 14 14 Blood Pressure 90/57 L Pulse Oximetry 9 L Intake/Output Intake/Output: Intake & Output 09/16/21 09/17/21 09/18/21 09/19/21 23:59 23:59 23:59 23:59 Intake Total 2100 2100 2250 1650 Output Total 3250 2525 1150 1900 Balance -1150 -425 1100 -250 Meds/Results Medications: Active Medications Generic Name Dose Route Start Last Admin Trade Name Freq PRN Reason Stop Dose Admin Acetaminophen 650 mg 09/11/21 18:21 Acetaminophen 325 Mg Tablet PO Q6H PRN Pain Albuterol 5 mg 09/11/21 14:00 09/19/21 15:03 Albuterol Sulfate Neb 2.5 Mg/0.5 Ml Inh INHALATION 5 mg Q6HRT JESSICA Administration Albuterol 2 puff 09/11/21 18:16 Albuterol Sulfate (*Sp) Aerosol 1 Puff INHALATION QIDRT PRN Shortness Of Breath Bupropion HCl 75 mg 09/12/21 09:00 09/19/21 08:09 Bupropion Hcl 75 Mg Tablet PO Not Given DAILY JESSICA Citalopram Hydrobromide 20 mg 09/12/21 09:00 09/19/21 08:09 Citalopram Hydrobromide 20 Mg Tablet PO Not Given DAILY JESSICA Dextrose 12.5 gm 09/11/21 23:33 Dextrose 50% 25 Gm/50 Ml Syringe IV PUSH PRN PRN Hypoglycemia Protocol Donepezil HCl 10 mg 09/11/21 21:00 09/18/21 21:07 Donepezil Hcl 10 Mg Tablet PO Not Given HS JESSICA Ergocalciferol 5,000 unit 09/15/21 09:00 09/15/21 08:53 Ergocalciferol 50,000 Unit Capsule PO Not Given Tu@0900 JESSICA Glucagon 1 mg 09/11/21 23:33 Glucagon For Inj 1 Mg Vial IM PRN PRN Hypoglycemia Protocol Glucose 15 gm 09/11/21 23:33 Glucose Oral Gel 15 Gm Of Glucse In 37.5 Gm Tube PO PRN PRN Hypoglycemia Protocol Heparin Sodium (Porcine) 5,500 units 09/11/21 11:48 09/16/21 11:35 Heparin Sodium 5,000 Units/Ml Vial IV PUSH 5,500 units PRN PRN Administration aPTT less than 55 seconds Heparin Sodium (Porcine) 2,500 units 09/11/21 11:48 Heparin Sodium 5,000 Units/Ml Vial IV PUSH PRN PRN aPTT 55 - 70 seconds Doxycycline Hyclate 100 mg in 100 mls @ 100 mls/hr 09/11/21 21:00 09/19/21 09:17 Vibramycin 100 Mg/Ns 100 Ml IVPB Infused Q12H JESSICA Infusion Piperacillin Sod/Tazobactam 100 mls @ 200 mls/hr 09/12/21 00:00 09/19/21 12:30 Sod 4.5 gm/ Sodium Chloride IVPB Infused Q6HR JESSICA Infusion Dextrose 1,000 mls @ 100 mls/hr 09/11/21 23:33 Dextrose 5% 1,000 Ml IVPB PRN PRN Hypoglycemia Protocol Heparin Sodium/Dextrose 25,000 units in 250 mls @ 11 mls/hr 09/13/21 00:20 09/19/21 15:09 Heparin Sodium/D5w 100 Units/Ml IV CONT 1,100 units/hr .[id number] JESSICA 11 mls/hr Administration Protocol Sodium Chloride 1,000 mls @ 50 mls/hr 09/17/21 18:10 09/19/21 16:41 Normal Saline Iv IV CONT 50 mls/hr .Q20H JESSICA Infusion Amino Acids/Electrolytes/Dextrose 2,000 mls @ 80 mls/hr 09/19/21 14:00 09/19/21 15:08 Clinimix E 4.25%/5% Solution IV CONT 09/21/21 13:59 80 mls/hr .Q24H JESSICA Administration Protocol Dextrose 1,000 mls @ 50 mls/hr 09/19/21 11:59 Dextrose 10% IV CONT .Q20H PRN if PN is interrupted Insulin Aspart 2 - 5 units 09/12/21 18:00 09/19/21 11:42 Insuli
[2021-09-19 17:58] LABS: Glucose Point of Care 116 mg/dl (65-105)
[2021-09-19] MEDS: PIPERACILLIN/TAZOBACTAM SOD 4.5 GM in SODIUM CHLORIDE 0.9% IV 100 ML IVPB ×2 (18:22→23:40)
[2021-09-19 23:44] LABS: Glucose Point of Care 102 mg/dl (65-105)
[2021-09-20] VITALS (12 sets, daily range): BP systolic 106–114; BP diastolic 54–61; PULSE 53–100; RESP 14–20; TEMP 36.9–37.2; O2SAT 64–98
[2021-09-20] MEDS: ALBUTEROL SULFATE NEB 2.5 MG/0.5 ML INH 5 MG INHALATION ×4 (02:08→19:50)
[2021-09-20] MEDS: IPRATROPIUM BR 0.02% INH SOLN 0.5 MG/2.5 ML VIAL INHALATION ×4 (02:08→19:50)
[2021-09-20 03:27] LABS: Anion Gap 4 mmol/L (8-16); Blood Urea Nitrogen 12 mg/dL (9-20); Calcium 8.5 mg/dL (8.4-10.2); Carbon Dioxide 24 mmol/L (22-30); Chloride 114 mmol/L (98-107); Estimated CRCL calculation 46 ml/min; Estimated Glomerular Filt Rate 50; Glucose 122 mg/dL (65-110); Phosphorus 3.7 mg/dL (2.5-4.5); Potassium 3.2 mmol/L (3.4-5.0); Sodium 142 mmol/L (137-145)
[2021-09-20 03:29] LABS: Partial Thromboplastin Time 83.6 SECONDS (22.3-36.8)
[2021-09-20] MEDS: SODIUM CHLORIDE 0.9% IV 1,000 ML 50 ML IV CONT (03:38)
[2021-09-20] MEDS: PIPERACILLIN/TAZOBACTAM SOD 4.5 GM in SODIUM CHLORIDE 0.9% IV 100 ML IVPB ×3 (05:17→17:41)
[2021-09-20 05:37] LABS: Glucose Point of Care 119 mg/dl (65-105)
[2021-09-20 09:21] LABS: Partial Thromboplastin Time 62.3 SECONDS (22.3-36.8)
[2021-09-20] MEDS: DOXYCYCLINE 100 MG/NS 100 ML 100 MG/100 ML BAG IVPB ×2 (10:01→20:38)
[2021-09-20] MEDS: HEPARIN SODIUM 5,000 UNITS/ML VIAL 2500 UNITS IV PUSH (10:02)
--- NOTE | 2021-09-20 11:09 | WPDGIPROGNO ---
Progress Note: A&P Additional Plan [facility] for [facility] 20 Sep 2021 Non-verbal. VSS soft/NT A/P Dysphagia; failed MBS with concern for aspiration of po: - Plan for EGD with PEG Tuesday09-21-2021 - Order to stop heparin gtt at [place] written Thanks, NKECHI [phone] Subjective Date/time seen: 09/20/21 11:09 Objective Data Vital Signs Vital Signs: Vital Signs - 24 hr 09/19/21 14:00 09/19/21 15:03 09/19/21 15:10 Temperature 36.5 C Pulse Rate 68 57 L 56 L Respiratory Rate 16 14 14 Blood Pressure 90/57 L Pulse Oximetry 9 L 09/19/21 19:52 09/19/21 20:54 09/19/21 21:04 Temperature 36.8 C Pulse Rate 66 54 L 59 L Respiratory Rate 14 14 14 Blood Pressure 106/60 Pulse Oximetry 98 09/20/21 02:12 09/20/21 04:31 09/20/21 05:26 Temperature 37.0 C Pulse Rate 53 L 56 L 67 Respiratory Rate 14 14 18 Blood Pressure 111/59 L Pulse Oximetry 98 09/20/21 09:00 09/20/21 09:01 Temperature Pulse Rate 56 L 58 L Respiratory Rate 14 14 Blood Pressure Pulse Oximetry Intake/Output Intake/Output: Intake & Output 09/17/21 09/18/21 09/19/21 09/20/21 23:59 23:59 23:59 23:59 Intake Total 2100 2250 2250 800 Output Total 2525 1150 1900 1350 Balance -425 1100 350 -550 Meds/Results Medications: Active Medications Generic Name Dose Route Start Last Admin Trade Name Freq PRN Reason Stop Dose Admin Acetaminophen 650 mg 09/11/21 18:21 Acetaminophen 325 Mg Tablet PO Q6H PRN Pain Albuterol 5 mg 09/11/21 14:00 09/20/21 08:57 Albuterol Sulfate Neb 2.5 Mg/0.5 Ml Inh INHALATION 5 mg Q6HRT JESSICA Administration Albuterol 2 puff 09/11/21 18:16 Albuterol Sulfate (*Sp) Aerosol 1 Puff INHALATION QIDRT PRN Shortness Of Breath Bupropion HCl 75 mg 09/12/21 09:00 09/20/21 10:05 Bupropion Hcl 75 Mg Tablet PO Not Given DAILY JESSICA Citalopram Hydrobromide 20 mg 09/12/21 09:00 09/20/21 10:05 Citalopram Hydrobromide 20 Mg Tablet PO Not Given DAILY JESSICA Dextrose 12.5 gm 09/11/21 23:33 Dextrose 50% 25 Gm/50 Ml Syringe IV PUSH PRN PRN Hypoglycemia Protocol Donepezil HCl 10 mg 09/11/21 21:00 09/19/21 21:47 Donepezil Hcl 10 Mg Tablet PO Not Given HS JESSICA Ergocalciferol 5,000 unit 09/15/21 09:00 09/15/21 08:53 Ergocalciferol 50,000 Unit Capsule PO Not Given Tu@0900 JESSICA Glucagon 1 mg 09/11/21 23:33 Glucagon For Inj 1 Mg Vial IM PRN PRN Hypoglycemia Protocol Glucose 15 gm 09/11/21 23:33 Glucose Oral Gel 15 Gm Of Glucse In 37.5 Gm Tube PO PRN PRN Hypoglycemia Protocol Heparin Sodium (Porcine) 5,500 units 09/11/21 11:48 09/16/21 11:35 Heparin Sodium 5,000 Units/Ml Vial IV PUSH 5,500 units PRN PRN Administration aPTT less than 55 seconds Heparin Sodium (Porcine) 2,500 units 09/11/21 11:48 09/20/21 10:02 Heparin Sodium 5,000 Units/Ml Vial IV PUSH 2,500 units PRN PRN Administration aPTT 55 - 70 seconds Doxycycline Hyclate 100 mg in 100 mls @ 100 mls/hr 09/11/21 21:00 09/20/21 10:01 Vibramycin 100 Mg/Ns 100 Ml IVPB 100 mls/hr Q12H JESSICA Administration Piperacillin Sod/Tazobactam 100 mls @ 200 mls/hr 09/12/21 00:00 09/20/21 06:15 Sod 4.5 gm/ Sodium Chloride IVPB Infused Q6HR JESSICA Infusion Dextrose 1,000 mls @ 100 mls/hr 09/11/21 23:33 Dextrose 5% 1,000 Ml IVPB PRN PRN Hypoglycemia Protocol Heparin Sodium/Dextrose 25,000 units in 250 mls @ 12 mls/hr 09/13/21 00:20 09/20/21 09:52 Heparin Sodium/D5w 100 Units/Ml IV CONT 1,200 units/hr .[id number] JESSICA 12 mls/hr Titration Protocol 1,200 UNITS/HR Sodium Chloride 1,000 mls @ 50 mls/hr 09/17/21 18:10 09/20/21 03:38 Normal Saline Iv IV CONT 50 mls/hr .Q20H JESSICA Administration Amino Acids/Electrolytes/Dextrose 2,000 mls @ 80 mls/hr 09/19/21 14:00 09/19/21 15:08 Clinimix E 4.25%/5% Solution IV CONT 09/21/21 13:59 80 mls/hr
[2021-09-20 11:25] LABS: Glucose Point of Care 104 mg/dl (65-105)
--- NOTE | 2021-09-20 12:09 | PM.PNNEP ---
Progress Note: A&P Assessment and Plan (1) ARIANNE (acute kidney injury): Code(s): N17.9 - Acute kidney failure, unspecified Status: Acute Assessment and Plan: continues to fluctuate possibly due to contrast versus medications related(?) has been on several antibiotics recently... however, no rash or peripheral eosinophilia poor nutritional intake partly to blame(?) - although has good urine output evaluation to date: renal ultrasound normal CPK low urine electrolytes non-prerenal follow trend of repeat labs and UOP (2) Acute pulmonary embolism: Qualifiers: Acute cor pulmonale presence: without acute cor pulmonale Pulmonary embolism type: unspecified Qualified Code(s): I26.99 - Other pulmonary embolism without acute cor pulmonale Code(s): I26.99 - Other pulmonary embolism without acute cor pulmonale Status: Acute Assessment and Plan: on anticoagulation (heparin gtt) switch to eliquis or coumadin(?) (3) Pneumonia: Qualifiers: Laterality: unspecified laterality Lung location: unspecified part of lung Pneumonia type: due to unspecified organism Qualified Code(s): J18.9 - Pneumonia, unspecified organism Code(s): J18.9 - Pneumonia, unspecified organism Status: Acute Assessment and Plan: on IV antibiotics follow culture data Will continue to follow. Subjective Date/time seen: 09/20/21 12:09 No real significant change at this time; remains non-verbal and in no apparent distress; no issues/events overnight or earlier this AM; noted plans for G-tube placement likely next week due to the need for ongoing nutritional support due to his high risk for aspiration. Exam Narrative: General: elderly male in NAD; non-verbal Heart: normal S1 and S2; no rub Lungs: clear to auscultation Abdomen: soft, nontender, nondistended, positive bowel sounds Extremities: no cyanosis or clubbing; no edema Skin: warm and intact Objective Data Vital Signs Vital Signs: Vital Signs Temp Pulse Resp BP Pulse Ox 09/20/21 09:01 58 L 14 09/20/21 09:00 56 L 14 09/20/21 05:26 37.0 C 67 18 111/59 L 98 09/20/21 04:31 56 L 14 09/20/21 02:12 53 L 14 09/19/21 21:04 59 L 14 09/19/21 20:54 54 L 14 09/19/21 19:52 36.8 C 66 14 106/60 98 09/19/21 15:10 56 L 14 09/19/21 15:03 57 L 14 09/19/21 14:00 36.5 C 68 16 90/57 L 9 L Intake/Output Intake/Output: Intake & Output 09/17/21 09/18/21 09/19/21 09/20/21 23:59 23:59 23:59 23:59 Intake Total 2100 2250 2250 800 Output Total 2525 1150 1900 1350 Balance -425 1100 350 -550 Meds/Results Medications: Active Medications Generic Name Dose Route Start Last Admin Trade Name Freq PRN Reason Stop Dose Admin Acetaminophen 650 mg 09/11/21 18:21 Acetaminophen 325 Mg Tablet PO Q6H PRN Pain Albuterol 5 mg 09/11/21 14:00 09/20/21 08:57 Albuterol Sulfate Neb 2.5 Mg/0.5 Ml Inh INHALATION 5 mg Q6HRT JESSICA Administration Albuterol 2 puff 09/11/21 18:16 Albuterol Sulfate (*Sp) Aerosol 1 Puff INHALATION QIDRT PRN Shortness Of Breath Bupropion HCl 75 mg 09/12/21 09:00 09/20/21 10:05 Bupropion Hcl 75 Mg Tablet PO Not Given DAILY JESSICA Citalopram Hydrobromide 20 mg 09/12/21 09:00 09/20/21 10:05 Citalopram Hydrobromide 20 Mg Tablet PO Not Given DAILY JESSICA Dextrose 12.5 gm 09/11/21 23:33 Dextrose 50% 25 Gm/50 Ml Syringe IV PUSH PRN PRN Hypoglycemia Protocol Donepezil HCl 10 mg 09/11/21 21:00 09/19/21 21:47 Donepezil Hcl 10 Mg Tablet PO Not Given HS JESSICA Ergocalciferol 5,000 unit 09/15/21 09:00 09/15/21 08:53 Ergocalciferol 50,000 Unit Capsule PO Not Given Tu@0900 JESSICA Glucagon 1 mg 09/11/21 23:33 Glucagon For Inj 1 Mg Vial IM PRN PRN Hypoglycemia Protocol Glucose 15 gm 09/11/21 23:33 Glucose Oral
[2021-09-20 12:25] LABS: Triglycerides 103 mg/dL (<150)
[2021-09-20] MEDS: HEPARIN SOD/D5W 100 UNITS/ML 25,000 UNITS/250 ML BAG 12 UNITS IV CONT (13:13)
[2021-09-20] MEDS: AMINO ACIDS 4.25%/D5W/LYTES/CA 2,000 ML 80 ML IV CONT (13:14)
[2021-09-20 21:25] LABS: Estimated CRCL calculation 46 ml/min; Estimated Glomerular Filt Rate 50
[2021-09-20 21:29] LABS: Partial Thromboplastin Time 109.1 SECONDS (22.3-36.8)
[2021-09-21] VITALS (9 sets, daily range): BP systolic 96–117; BP diastolic 56–66; PULSE 61–98; RESP 16–20; TEMP 36.6–36.8; O2SAT 97–98
[2021-09-21] MEDS: PIPERACILLIN/TAZOBACTAM SOD 4.5 GM in SODIUM CHLORIDE 0.9% IV 100 ML IVPB ×5 (00:04→23:48)
[2021-09-21 00:12] LABS: Glucose Point of Care 108 mg/dl (65-105)
[2021-09-21] MEDS: SODIUM CHLORIDE 0.9% IV 1,000 ML 50 ML IV CONT (02:30)
[2021-09-21] MEDS: IPRATROPIUM BR 0.02% INH SOLN 0.5 MG/2.5 ML VIAL INHALATION ×4 (03:00→20:03)
[2021-09-21] MEDS: ALBUTEROL SULFATE NEB 2.5 MG/0.5 ML INH 5 MG INHALATION ×4 (03:00→20:03)
[2021-09-21 05:54] LABS: Glucose Point of Care 116 mg/dl (65-105)
[2021-09-21 06:43] LABS: Basophils Percent Auto 0.6 % (0.2-1.2); Eosinophils Absolute Auto 0.1 K/mm3 (0-0.3); Hemoglobin 10.2 g/dL (14.0-18.0); Immature Granulocyte Absolute 0.02 K/mm3 (0.00-0.031); Immature Granulocyte Percent A 0.4 % (0-0.5); Lymphocytes Absolute Auto 0.95 K/mm3 (0.9-3.2); Lymphocytes Percent Auto 18.8 % (18.3-44.2); Mean Corpuscular HGB Conc 31.9 g/dl (32-36); Mean Corpuscular Hemoglobin 29.7 pg (26-34); Mean Corpuscular Volume 93.3 fl (80-100); Mean Platelet Volume 10.2 fl (7.4-10.4); Monocytes Absolute Auto 0.2 K/mm3 (0.1-0.6); Monocytes Percent Auto 4.7 % (2.6-8.5); Neutrophils Absolute Auto 3.8 K/mm3 (1.3-6.7); Neutrophils Percent Auto 74.5 % (45.5-73.1); Platelet Count Result 192 k/mm3 (150-375); Red Blood Count 3.43 M/mm3 (4.6-6.20); Red Cell Distribution Width 14.9 % (11.5-14.5); White Blood Count 5.1 K/mm3 (4.5-10.0)
[2021-09-21 06:57] LABS: Alanine Aminotransferase 26 U/L (6-50); Albumin Level 2.4 g/dL (3.5-5.1); Alkaline Phosphatase 63 U/L (38-126); Anion Gap 4 mmol/L (8-16); Aspartate Amino Transferase 31 U/L (17-59); Bilirubin,Total 0.5 mg/dL (0.2-1.3); Blood Urea Nitrogen 16 mg/dL (9-20); Calcium 8.5 mg/dL (8.4-10.2); Carbon Dioxide 26 mmol/L (22-30); Chloride 112 mmol/L (98-107); Estimated CRCL calculation 47 ml/min; Estimated Glomerular Filt Rate 50; Glucose 111 mg/dL (65-110); Magnesium 2.1 mg/dL (1.6-2.3); Phosphorus 3.7 mg/dL (2.5-4.5); Potassium 3.2 mmol/L (3.4-5.0); Sodium 142 mmol/L (137-145)
[2021-09-21 07:04] LABS: Transferrin 87 mg/dL (206-381)
[2021-09-21 07:22] LABS: INR 1.3; Prothrombin Time 16.1 Seconds (11.1-14.7)
[2021-09-21 07:23] LABS: Partial Thromboplastin Time 34.1 SECONDS (22.3-36.8)
[2021-09-21 07:33] LABS: Glucose Point of Care 111 mg/dl (65-105)
[2021-09-21] MEDS: DOXYCYCLINE 100 MG/NS 100 ML 100 MG/100 ML BAG IVPB ×2 (08:06→20:26)
--- NOTE | 2021-09-21 10:52 | PCNFU ---
Nutrition Follow-Up Complete: Inadequate energy intake related to NPO as evidenced by nursing report and no diet order for 5 days. Goal: Meet nutritional needs Patient is progressing towards goal. We will continue current goal. Pt current nutrition is PPN. Last recorded weight is 79.9 kg, up from 789 kg on admit. Bowel Motility:+BM reported 09/20 Labs Reviewed:Cr 1.4,GFR 50, Alb 2.4,Hgb 10.2,Hct 32.0 Meds Noted:Remeron, NovoLog, Atrovent, Vibramycin, Clinimix 4.25/5 at 80 ml/hr with 250 ml of 20% Lipid Emulsion. Skin: Stage II-PU buttocks. Additional Notes: Patient currently getting PPN providing 1153 kcals/82 gms protein. Plans for PEG placement today. Tube feeding recommendations: Jevity 1.5 at 20 ml/hr over 22 hours increase by 20 ml q 4 hours to goal rate of 65 ml/hr over 22 hours. Free water flush 45 ml q 4 hours. Agree with diet orders. Monitor for a diet order, wt, labs. Follow up every Tuesday and Tuesday.
[2021-09-21 11:17] LABS: Glucose Point of Care 98 mg/dl (65-105)
--- NOTE | 2021-09-21 14:16 | WPDGIPROGNO ---
Progress Note: A&P Assessment and Plan (1) Dysphagia: Code(s): R13.10 - Dysphagia, unspecified Status: Acute Assessment and Plan: he did not pass swallow test and recommendation for g-tube will try to get consent and then proceed with G-tube, probably tomorrow hold hepatin gtt tomorrow first time in the morning (2) Dementia: Code(s): F03.90 - Unspecified dementia without behavioral disturbance Status: Acute (3) Suspected malignant neoplasm of lung: Code(s): R68.89 - Other general symptoms and signs Status: Acute Assessment and Plan: pulmonary on board (4) Postobstructive pneumonia: Code(s): J18.9 - Pneumonia, unspecified organism Status: Acute Assessment and Plan: on antibiotics he is not requiring oxygen (5) Acute pulmonary embolism: Qualifiers: Acute cor pulmonale presence: without acute cor pulmonale Pulmonary embolism type: unspecified Qualified Code(s): I26.99 - Other pulmonary embolism without acute cor pulmonale Code(s): I26.99 - Other pulmonary embolism without acute cor pulmonale Status: Acute Assessment and Plan: on treatment (6) ARIANNE (acute kidney injury): Code(s): N17.9 - Acute kidney failure, unspecified Status: Acute Assessment and Plan: on treatment, nephrology on board Subjective Date/time seen: 09/21/21 14:16 Interval history: waiting on getting consent from POA and could not get PEG today no new issues per corporate responsibility officer of Systems Review of Systems: All systems reviewed & are unremarkable except as noted in HPI and below Exam Const: General: comfortable and no acute distress Other: Chronically ill-appearing lying in bed alert but nonverbal which is reportedly his baseline HENMT: General nose exam: Normal nares present Eyes: General: appearance normal, both eyes and all related structures Neck: Neck: no JVD Resp: Auscultation: no crackles and diminished lung sounds Cardio: Rate: regular rate Rhythm: regular rhythm GI: Inspection: non-distended GI Palp: Yes Soft to palpation and No Guarding due to palpation present (GI) Auscultation: normal bowel sounds Skin: General skin exam: normal color Neuro: Cognition (Neuro): abnormal cognition Other: awake but not following commands- ? baseline Extrem: General: normal to inspection Objective Data Vital Signs Vital Signs: Vital Signs - 24 hr 09/20/21 14:40 09/20/21 14:49 09/20/21 19:50 Temperature Pulse Rate 65 61 59 L Respiratory Rate 14 14 14 Blood Pressure Pulse Oximetry 09/20/21 19:57 09/20/21 20:00 09/20/21 22:00 Temperature 99 F Pulse Rate 60 60 76 Respiratory Rate 14 14 20 Blood Pressure 114/61 Pulse Oximetry 64 L 98 09/21/21 03:00 09/21/21 03:10 09/21/21 06:00 Temperature 98 F Pulse Rate 63 61 98 Respiratory Rate 16 16 20 Blood Pressure 117/64 Pulse Oximetry 98 09/21/21 09:22 09/21/21 09:23 09/21/21 11:04 Temperature 98.2 F Pulse Rate 63 62 70 Respiratory Rate 16 16 20 Blood Pressure 96/56 L Pulse Oximetry 97 Intake/Output Intake/Output: Intake & Output 09/18/21 09/19/21 09/20/21 09/21/21 23:59 23:59 23:59 23:59 Intake Total 2250 2250 4450 300 Output Total 1150 1900 3100 800 Balance 5799 409 0706 -500 Meds/Results Medications: Active Medications Generic Name Dose Route Start Last Admin Trade Name Freq PRN Reason Stop Dose Admin Acetaminophen 650 mg 09/11/21 18:21 Acetaminophen 325 Mg Tablet PO Q6H PRN Pain Albuterol 5 mg 09/11/21 14:00 09/21/21 10:13 Albuterol Sulfate Neb 2.5 Mg/0.5 Ml Inh INHALATION 5 mg Q6HRT JESSICA Administration Albuterol 2 puff 09/11/21 18:16 Albuterol Sulfate (*Sp) Aerosol 1 Puff INHALATION QIDRT PRN Shortness Of Breath Bupropion HCl 75 mg 09/12/21 09:00 09/21/21 08:05 Bupropion Hcl 75 Mg Tablet PO Not Given DAILY JESSICA Citalopram Hydrobromide 20 mg
--- NOTE | 2021-09-21 14:52 | PCRCNOTE ---
Window of time for administration has passed. See next scheduled administration.
--- NOTE | 2021-09-21 16:06 | PM.PNNEP ---
Progress Note: A&P Assessment and Plan (1) ARIANNE (acute kidney injury): Code(s): N17.9 - Acute kidney failure, unspecified Status: Acute Assessment and Plan: continues to fluctuate possibly due to contrast versus medications related(?) has been on several antibiotics recently... however, no rash or peripheral eosinophilia poor nutritional intake partly to blame(?) - although has good urine output evaluation to date: renal ultrasound normal CPK low urine electrolytes non-prerenal follow trend of repeat labs and UOP (2) Acute pulmonary embolism: Qualifiers: Acute cor pulmonale presence: without acute cor pulmonale Pulmonary embolism type: unspecified Qualified Code(s): I26.99 - Other pulmonary embolism without acute cor pulmonale Code(s): I26.99 - Other pulmonary embolism without acute cor pulmonale Status: Acute Assessment and Plan: on anticoagulation (heparin gtt) switch to eliquis or coumadin(?) (3) Pneumonia: Qualifiers: Laterality: unspecified laterality Lung location: unspecified part of lung Pneumonia type: due to unspecified organism Qualified Code(s): J18.9 - Pneumonia, unspecified organism Code(s): J18.9 - Pneumonia, unspecified organism Status: Acute Assessment and Plan: on IV antibiotics follow culture data Will continue to follow. Subjective Date/time seen: 09/21/21 16:06 G-tube placement could not be done today due to lack of consent by guardian; renal function remains stable but still above baseline; remains non-verbal but in no apparent distress; no issues/events overnight or earlier this morning. Exam Narrative: General: elderly male in NAD; non-verbal Heart: normal S1 and S2; no rub Lungs: clear to auscultation Abdomen: soft, nontender, nondistended, positive bowel sounds Extremities: no cyanosis or clubbing; no edema Skin: no rash Objective Data Vital Signs Vital Signs: Vital Signs Temp Pulse Resp BP Pulse Ox 09/21/21 11:04 36.8 C 70 20 96/56 L 97 09/21/21 09:23 62 16 09/21/21 09:22 63 16 09/21/21 06:00 36.6 C 98 20 117/64 98 09/21/21 03:10 61 16 09/21/21 03:00 63 16 09/20/21 22:00 37.2 C 76 20 114/61 98 09/20/21 20:00 60 14 64 L 09/20/21 19:57 60 14 09/20/21 19:50 59 L 14 Intake/Output Intake/Output: Intake & Output 09/18/21 09/19/21 09/20/21 09/21/21 23:59 23:59 23:59 23:59 Intake Total 2250 2250 4450 300 Output Total 1150 1900 3100 800 Balance 5130 043 1181 -500 Meds/Results Medications: Active Medications Generic Name Dose Route Start Last Admin Trade Name Freq PRN Reason Stop Dose Admin Acetaminophen 650 mg 09/11/21 18:21 Acetaminophen 325 Mg Tablet PO Q6H PRN Pain Albuterol 5 mg 09/11/21 14:00 09/21/21 14:52 Albuterol Sulfate Neb 2.5 Mg/0.5 Ml Inh INHALATION 5 mg Q6HRT JESSICA Administration Albuterol 2 puff 09/11/21 18:16 Albuterol Sulfate (*Sp) Aerosol 1 Puff INHALATION QIDRT PRN Shortness Of Breath Bupropion HCl 75 mg 09/12/21 09:00 09/21/21 08:05 Bupropion Hcl 75 Mg Tablet PO Not Given DAILY JESSICA Citalopram Hydrobromide 20 mg 09/12/21 09:00 09/21/21 08:05 Citalopram Hydrobromide 20 Mg Tablet PO Not Given DAILY JESSICA Dextrose 12.5 gm 09/11/21 23:33 Dextrose 50% 25 Gm/50 Ml Syringe IV PUSH PRN PRN Hypoglycemia Protocol Donepezil HCl 10 mg 09/11/21 21:00 09/20/21 20:11 Donepezil Hcl 10 Mg Tablet PO Not Given HS JESSICA Ergocalciferol 5,000 unit 09/15/21 09:00 09/15/21 08:53 Ergocalciferol 50,000 Unit Capsule PO Not Given Tu@0900 JESSICA Glucagon 1 mg 09/11/21 23:33 Glucagon For Inj 1 Mg Vial IM PRN PRN Hypoglycemia Protocol Glucose 15 gm 09/11/21 23:33 Glucose Oral Gel 15 Gm Of Glucse In 37.5 Gm Tube PO PRN PRN Hypoglycemia Protocol
[2021-09-21 16:52] LABS: Glucose Point of Care 84 mg/dl (65-105)
[2021-09-21] MEDS: AMINO ACIDS 4.25%/D5W/LYTES/CA 2,000 ML 80 ML IV CONT (18:10)
--- NOTE | 2021-09-21 19:21 | PC.NURSE ---
Patient guardian called at 0730 about consent for PEG tube. Informed that the emergency guardian line was unable to consent to something like a PEG tube, and was told to call later when Eric would be in the office at 0830. Called the office again at 0840 and Eric was not in the office. Called again and asked to speak to the secondary contact for the patient, Shaquille. Shaquille informed me he would contact Eric and let him know I was trying to get in contact. Eric called at 1040 to inform me he was not aware of patients need for a PEG tube. Informed him of the patients condition/comorbidities (PE, pneumonia, dementia) and the current medical treatment (IV fluids, heparin, PPN, speech evals, IV abx). Eric needed documentation of the patients inability to swallow/aspiration and that he would get back to me within the hour. Faxed info at [phone] from . Patient was not even a candidate for a barium swallow due to inability to follow instructions and deemed unsafe. No response by 1200 and office called again twice trying to reach Eric. Eric responded at 1300 and informed me he needed proof that a doctor deemed it necessary to place a PEG. Info sent at 1318. Office called twice at 1500 but no answer. RN will try again tomorrow.
[2021-09-22] VITALS (8 sets, daily range): BP systolic 99–122; BP diastolic 57–72; PULSE 60–84; RESP 16–18; TEMP 35.9–36.9; O2SAT 95–99
[2021-09-22 00:08] LABS: Glucose Point of Care 101 mg/dl (65-105)
[2021-09-22] MEDS: IPRATROPIUM BR 0.02% INH SOLN 0.5 MG/2.5 ML VIAL INHALATION ×4 (02:00→20:11)
[2021-09-22] MEDS: ALBUTEROL SULFATE NEB 2.5 MG/0.5 ML INH 5 MG INHALATION ×4 (02:00→20:10)
[2021-09-22 04:28] LABS: Estimated CRCL calculation 50 ml/min; Estimated Glomerular Filt Rate 55; Phosphorus 3.9 mg/dL (2.5-4.5); Triglycerides 103 mg/dL (<150)
[2021-09-22 04:36] LABS: Partial Thromboplastin Time 85.7 SECONDS (22.3-36.8)
[2021-09-22] MEDS: PIPERACILLIN/TAZOBACTAM SOD 4.5 GM in SODIUM CHLORIDE 0.9% IV 100 ML IVPB ×2 (05:49→11:23)
[2021-09-22 06:14] LABS: Glucose Point of Care 113 mg/dl (65-105)
[2021-09-22] MEDS: DOXYCYCLINE 100 MG/NS 100 ML 100 MG/100 ML BAG IVPB ×2 (08:17→20:24)
--- NOTE | 2021-09-22 10:27 | PCNFU ---
Nutrition Follow-Up Complete: Inadequate energy intake related to NPO as evidenced by nursing report and no diet order for 5 days. goal: Meet nutritional needs patient is progressing towards goal. We will continue current goal. Pt current nutrition is PPN. Last recorded weight is 79.9 kg, up from 78 kg on admit. Bowel Motility: +BM reported 09/22 Labs Reviewed:BUN 55 Meds Noted:Remeron, NovoLog, Atrovent, Vibramycin, Clinimix 4.25/5 at 80 ml/hr with 250 ml of 20% Lipid Emulsion. Skin: WNL Additional Notes: Patient remains on PPN providing 1153 kcals/82 gms protein. Plans for PEG placement, waiting for guardian approval to proceed. Tube feeding recommendations: Jevity 1.5 at 65 ml/hr providing 2145 kcals/91 gms protein/1086 ml water. Free water flush 45 ml q 4 hours. Agree with diet orders. Monitor for a diet order, wt, labs. Follow up every Tuesday and Tuesday.
--- NOTE | 2021-09-22 10:34 | PM.PNNEP ---
Progress Note: A&P Assessment and Plan (1) ARIANNE (acute kidney injury): Code(s): N17.9 - Acute kidney failure, unspecified Status: Acute Assessment and Plan: continues to fluctuate (1.3 - 1.4mg/dl) possibly due to contrast versus medications related(?) has been on several antibiotics recently... however, no rash or peripheral eosinophilia poor nutritional intake partly to blame(?) - although has good urine output evaluation to date: renal ultrasound normal CPK low urine electrolytes non-prerenal follow trend of repeat labs and UOP (2) Acute pulmonary embolism: Qualifiers: Acute cor pulmonale presence: without acute cor pulmonale Pulmonary embolism type: unspecified Qualified Code(s): I26.99 - Other pulmonary embolism without acute cor pulmonale Code(s): I26.99 - Other pulmonary embolism without acute cor pulmonale Status: Acute Assessment and Plan: on anticoagulation (heparin gtt) switch to eliquis or coumadin(?) (3) Pneumonia: Qualifiers: Laterality: unspecified laterality Lung location: unspecified part of lung Pneumonia type: due to unspecified organism Qualified Code(s): J18.9 - Pneumonia, unspecified organism Code(s): J18.9 - Pneumonia, unspecified organism Status: Acute Assessment and Plan: on IV antibiotics follow culture data Will continue to follow. Subjective Date/time seen: 09/22/21 10:34 Apparently still awaiting consent from state guardian regarding G-tube placement; otherwise, no real change noted at the time of my visit. Exam Narrative: General: elderly male in NAD; non-verbal Heart: normal S1 and S2; no rub Lungs: clear to auscultation Abdomen: soft, nontender, nondistended, positive bowel sounds Extremities: no cyanosis or clubbing; no edema Skin: no nodules Objective Data Vital Signs Vital Signs: Vital Signs Temp Pulse Resp BP Pulse Ox 09/22/21 08:50 60 16 09/22/21 05:48 36.6 C 65 16 99/57 L 99 09/22/21 02:10 61 16 09/22/21 02:00 63 16 09/21/21 20:37 36.8 C 68 18 113/66 97 09/21/21 20:03 66 16 09/21/21 20:00 68 18 97 09/21/21 11:04 36.8 C 70 20 96/56 L 97 Intake/Output Intake/Output: Intake & Output 09/19/21 09/20/21 09/21/21 09/22/21 23:59 23:59 23:59 23:59 Intake Total 2250 4450 600 200 Output Total 1900 3100 1750 2300 Balance 350 1350 -1150 -2100 Meds/Results Medications: Active Medications Generic Name Dose Route Start Last Admin Trade Name Jay Jay PRN Reason Stop Dose Admin Acetaminophen 650 mg 09/11/21 18:21 Acetaminophen 325 Mg Tablet PO Q6H PRN Pain Albuterol 5 mg 09/11/21 14:00 09/22/21 08:50 Albuterol Sulfate Neb 2.5 Mg/0.5 Ml Inh INHALATION 5 mg Q6HRT JESSICA Administration Albuterol 2 puff 09/11/21 18:16 Albuterol Sulfate (*Sp) Aerosol 1 Puff INHALATION QIDRT PRN Shortness Of Breath Bupropion HCl 75 mg 09/12/21 09:00 09/22/21 08:14 Bupropion Hcl 75 Mg Tablet PO Not Given DAILY JESSICA Citalopram Hydrobromide 20 mg 09/12/21 09:00 09/22/21 08:14 Citalopram Hydrobromide 20 Mg Tablet PO Not Given DAILY JESSICA Dextrose 12.5 gm 09/11/21 23:33 Dextrose 50% 25 Gm/50 Ml Syringe IV PUSH PRN PRN Hypoglycemia Protocol Donepezil HCl 10 mg 09/11/21 21:00 09/21/21 20:26 Donepezil Hcl 10 Mg Tablet PO Not Given HS JESSICA Ergocalciferol 5,000 unit 09/15/21 09:00 09/22/21 08:15 Ergocalciferol 50,000 Unit Capsule PO Not Given Tu@0900 JESSICA Glucagon 1 mg 09/11/21 23:33 Glucagon For Inj 1 Mg Vial IM PRN PRN Hypoglycemia Protocol Glucose 15 gm 09/11/21 23:33 Glucose Oral Gel 15 Gm Of Glucse In 37.5 Gm Tube PO PRN PRN Hypoglycemia Protocol Heparin Sodium (Porcine) 5,500 units 09/11/21 11:48 09/16/21 11:35 Heparin Sodium 5,000 Units/Ml Vial IV PUSH 5,500 units
--- NOTE | 2021-09-22 11:35 | PC.NURSE ---
[facility] made aware that the PEG will not be placed today, this nursed asked about the heparin drip and when to restart it. Dr Avitia stated continue to hold the heparin pending PEG placement tomorrow.
[2021-09-22 11:48] LABS: Glucose Point of Care 121 mg/dl (65-105)
--- NOTE | 2021-09-22 11:59 | WPDGIPROGNO ---
Progress Note: A&P Assessment and Plan (1) Dysphagia: Code(s): R13.10 - Dysphagia, unspecified Status: Acute Assessment and Plan: he did not pass swallow test and recommendation for g-tube still waiting for consent before we can proceed with G-tube, we could not do it today hold hepatin gtt tomorrow first time in the morning (2) Dementia: Code(s): F03.90 - Unspecified dementia without behavioral disturbance Status: Acute (3) Suspected malignant neoplasm of lung: Code(s): R68.89 - Other general symptoms and signs Status: Acute Assessment and Plan: pulmonary on board (4) Postobstructive pneumonia: Code(s): J18.9 - Pneumonia, unspecified organism Status: Acute Assessment and Plan: on antibiotics he is not requiring oxygen (5) Acute pulmonary embolism: Qualifiers: Acute cor pulmonale presence: without acute cor pulmonale Pulmonary embolism type: unspecified Qualified Code(s): I26.99 - Other pulmonary embolism without acute cor pulmonale Code(s): I26.99 - Other pulmonary embolism without acute cor pulmonale Status: Acute Assessment and Plan: on treatment (6) ARIANNE (acute kidney injury): Code(s): N17.9 - Acute kidney failure, unspecified Status: Acute Assessment and Plan: on treatment, nephrology on board Subjective Date/time seen: 09/22/21 11:59 Interval history: no changes but unable to get a consent from state guardian Review of Systems Review of Systems: All systems reviewed & are unremarkable except as noted in HPI and below Exam Const: General: comfortable and no acute distress Other: Chronically ill-appearing lying in bed alert but nonverbal which is reportedly his baseline HENMT: General nose exam: Normal nares present Eyes: General: appearance normal, both eyes and all related structures Neck: Neck: no JVD Resp: Auscultation: no crackles and diminished lung sounds Cardio: Rate: regular rate Rhythm: regular rhythm GI: Inspection: non-distended GI Palp: Yes Soft to palpation and No Guarding due to palpation present (GI) Auscultation: normal bowel sounds Skin: General skin exam: normal color Neuro: Cognition (Neuro): abnormal cognition Other: awake but not following commands- ? baseline Extrem: General: normal to inspection Objective Data Vital Signs Vital Signs: Vital Signs - 24 hr 09/21/21 20:00 09/21/21 20:03 09/21/21 20:37 Temperature 98.2 F Pulse Rate 68 66 68 Respiratory Rate 18 16 18 Blood Pressure 113/66 Pulse Oximetry 97 97 09/22/21 02:00 09/22/21 02:10 09/22/21 05:48 Temperature 97.9 F Pulse Rate 63 61 65 Respiratory Rate 16 16 16 Blood Pressure 99/57 L Pulse Oximetry 99 09/22/21 08:50 Temperature Pulse Rate 60 Respiratory Rate 16 Blood Pressure Pulse Oximetry Intake/Output Intake/Output: Intake & Output 09/19/21 09/20/21 09/21/21 09/22/21 23:59 23:59 23:59 23:59 Intake Total 2250 4450 600 200 Output Total 1900 3100 1750 2300 Balance 350 1350 -1150 -2100 Meds/Results Medications: Active Medications Generic Name Dose Route Start Last Admin Trade Name Freq PRN Reason Stop Dose Admin Acetaminophen 650 mg 09/11/21 18:21 Acetaminophen 325 Mg Tablet PO Q6H PRN Pain Albuterol 5 mg 09/11/21 14:00 09/22/21 08:50 Albuterol Sulfate Neb 2.5 Mg/0.5 Ml Inh INHALATION 5 mg Q6HRT JESSICA Administration Albuterol 2 puff 09/11/21 18:16 Albuterol Sulfate (*Sp) Aerosol 1 Puff INHALATION QIDRT PRN Shortness Of Breath Bupropion HCl 75 mg 09/12/21 09:00 09/22/21 08:14 Bupropion Hcl 75 Mg Tablet PO Not Given DAILY JESSICA Citalopram Hydrobromide 20 mg 09/12/21 09:00 09/22/21 08:14 Citalopram Hydrobromide 20 Mg Tablet PO Not Given DAILY JESSICA Dextrose 12.5 gm 09/11/21 23:33 Dextrose 50% 25 Gm/50 Ml Syringe IV PUSH PRN PRN Hypoglycemia Protocol
--- NOTE | 2021-09-22 13:18 | PM.IMPN ---
Progress Note: A&P Assessment and Plan (1) Hypokalemia: Code(s): E87.6 - Hypokalemia Status: Acute Assessment and Plan: (2) Dementia: Code(s): F03.90 - Unspecified dementia without behavioral disturbance Status: Acute (3) Elevated LFTs: Code(s): R79.89 - Other specified abnormal findings of blood chemistry Status: Acute (4) Dehydration: Code(s): E86.0 - Dehydration Status: Acute (5) Suspected malignant neoplasm of lung: Code(s): R68.89 - Other general symptoms and signs Status: Acute Assessment and Plan: -as noted per CTA patient has a left hilar and subcarinal lymphadenopathy with occlusion of the left lower lobe bronchus that is suspicious for malignancy. -Pulmonology consulted, and advised that pt. should have a repeat CT scan in 6 weeks to determine whether or not it was actual occlusion of the lung from the current infectious process causing a mucous, or if it is from a malignancy. - I have called to speak to the court appointed guardian and a message was left for them to return call. (6) Hypoxia: Code(s): R09.02 - Hypoxemia Status: Acute (7) Acute pulmonary embolism: Qualifiers: Acute cor pulmonale presence: without acute cor pulmonale Pulmonary embolism type: unspecified Qualified Code(s): I26.99 - Other pulmonary embolism without acute cor pulmonale Code(s): I26.99 - Other pulmonary embolism without acute cor pulmonale Status: Acute Assessment and Plan: - Acute Right sided pulmonary embolus per CT scan. -continue heparin drip. -monitor respiratory status. -Venous Doppler negative for any DVT. - Care Coordination was consulted for determination of the most appropriate DOAC for the patient's insurance. (8) Postobstructive pneumonia: Code(s): J18.9 - Pneumonia, unspecified organism Status: Acute Assessment and Plan: -continue Zosyn, Zithromax and vancomycin. Pneumo and Legionella labs pending. -continue supplemental oxygen as needed. - Continue IV abx while in hospital and at discharge, Dr. Orellana recommends 10 days of Cefdinir and Levaquin. Additional Plan 09/11/21 He has been started on a heparin drip and he will be monitored on telemetry overnight. Echocardiogram ordered to assess for heart strain though no evidence of such on chest CTA.. Venous Doppler ultrasounds of the lower extremities are pending to rule out DVT. Chest CT showed left hilar and subcarinal lymphadenopathy with occlusion of the left lower lobe bronchus which is suspicious for malignancy. This may very well be what has precipitated the pulmonary embolism. We will need to get in touch with his next of kin and/or [id number] to discuss the next step and whether not they would want to pursue a diagnosis and treatment in this unfortunate and chronically debilitated gentleman. He has been started on broad-spectrum antibiotics to include piperacillin/tazobactam, azithromycin, and vancomycin given suspected p Related to a combination of the above. Wean oxygen as tolerated; will likely need home oxygen evaluation before discharge. May be related to infection though with suspicions for lung malignancy, will obtain right upper quadrant ultrasound. He is dry on exam and by labs and will be cautiously hydrated with close monitoring of volume status. Bedside swallow ordered for a.m. as I suspect he may be at risk for aspiration. 09/12/21 -on a heparin drip and being monitored on telemetry. -echocardiogram ordered to assess for heart strain though no evidence of such on chest CTA. -Venous Doppler ultrasounds of the lower extremities are pending to rule out DVT. -chest CT showed left hilar and subcarinal lymphadenopathy with occlusion of the left lower lobe bronchus which is suspicious for malignancy. This may very well be what has precipitated the pulmonary embolism.
--- NOTE | 2021-09-22 14:15 | PCRCNOTE ---
Pt let therapist start breathing treatment. [address] through the treatment pt took mask off and would not let therapist put the treatment mask back on did try talking ot pt and they still refused.
--- NOTE | 2021-09-22 16:28 | PC.NURSE ---
This nurse placed multiple called to Giancarlo Cardona throughout the day. Left multiple voicemails. Giancarlo Cardona never picked up any of my phone calls nor did he return my calls back. Speedy HOOPER witnessed these phone calls.
--- NOTE | 2021-09-22 17:45 | PC.NURSE ---
This nurse spoke with Eric Cardona, he returned my phone call a little before 17:00. He gave telephone consent for Chandana Osborne to get the EGD with PEG placement per Dr. Ray.
[2021-09-22 18:31] LABS: Glucose Point of Care 101 mg/dl (65-105)
[2021-09-22] MEDS: AMINO ACIDS 4.25%/D5W/LYTES/CA 2,000 ML 80 ML IV CONT (18:46)
[2021-09-22] MEDS: PIPERACILLIN/TAZOBACTAM SOD 4.5 GM in SODIUM CHLORIDE 0.9% IV 100 ML 200 ML IVPB (18:47)
[2021-09-22 23:58] LABS: Glucose Point of Care 103 mg/dl (65-105)
[2021-09-23] VITALS (12 sets, daily range): BP systolic 83–120; BP diastolic 45–75; PULSE 59–82; RESP 14–20; TEMP 35.5–36.4; O2SAT 96–99
[2021-09-23] MEDS: PIPERACILLIN/TAZOBACTAM SOD 4.5 GM in SODIUM CHLORIDE 0.9% IV 100 ML 200 ML IVPB ×3 (00:01→18:30)
[2021-09-23] MEDS: IPRATROPIUM BR 0.02% INH SOLN 0.5 MG/2.5 ML VIAL INHALATION ×4 (02:21→21:40)
[2021-09-23] MEDS: ALBUTEROL SULFATE NEB 2.5 MG/0.5 ML INH 5 MG INHALATION ×4 (02:21→21:40)
[2021-09-23 05:39] LABS: Glucose Point of Care 109 mg/dl (65-105)
[2021-09-23 05:48] LABS: Estimated CRCL calculation 54 ml/min; Estimated Glomerular Filt Rate 60
[2021-09-23] MEDS: DOXYCYCLINE 100 MG/NS 100 ML 100 MG/100 ML BAG IVPB ×2 (09:08→20:12)
[2021-09-23 11:50] LABS: Glucose Point of Care 92 mg/dl (65-105)
--- NOTE | 2021-09-23 12:03 | PM.IMPN ---
Progress Note: A&P Assessment and Plan (1) Hypokalemia: Code(s): E87.6 - Hypokalemia Status: Acute Assessment and Plan: (2) Dementia: Code(s): F03.90 - Unspecified dementia without behavioral disturbance Status: Acute (3) Elevated LFTs: Code(s): R79.89 - Other specified abnormal findings of blood chemistry Status: Acute (4) Dehydration: Code(s): E86.0 - Dehydration Status: Acute (5) Suspected malignant neoplasm of lung: Code(s): R68.89 - Other general symptoms and signs Status: Acute Assessment and Plan: -as noted per CTA patient has a left hilar and subcarinal lymphadenopathy with occlusion of the left lower lobe bronchus that is suspicious for malignancy. -Pulmonology consulted, and advised that pt. should have a repeat CT scan in 6 weeks to determine whether or not it was actual occlusion of the lung from the current infectious process causing a mucous, or if it is from a malignancy. (6) Hypoxia: Code(s): R09.02 - Hypoxemia Status: Acute (7) Acute pulmonary embolism: Qualifiers: Acute cor pulmonale presence: without acute cor pulmonale Pulmonary embolism type: unspecified Qualified Code(s): I26.99 - Other pulmonary embolism without acute cor pulmonale Code(s): I26.99 - Other pulmonary embolism without acute cor pulmonale Status: Acute Assessment and Plan: - Acute Right sided pulmonary embolus per CT scan. -continue heparin drip. -monitor respiratory status. -Venous Doppler negative for any DVT. (8) Postobstructive pneumonia: Code(s): J18.9 - Pneumonia, unspecified organism Status: Acute Assessment and Plan: -continue supplemental oxygen as needed. - Continue IV abx while in hospital and at discharge, Dr. Orellana recommends 10 days of Cefdinir and Levaquin. Additional Plan 09/11/21 He has been started on a heparin drip and he will be monitored on telemetry overnight. Echocardiogram ordered to assess for heart strain though no evidence of such on chest CTA.. Venous Doppler ultrasounds of the lower extremities are pending to rule out DVT. Chest CT showed left hilar and subcarinal lymphadenopathy with occlusion of the left lower lobe bronchus which is suspicious for malignancy. This may very well be what has precipitated the pulmonary embolism. We will need to get in touch with his next of kin and/or [id number] to discuss the next step and whether not they would want to pursue a diagnosis and treatment in this unfortunate and chronically debilitated gentleman. He has been started on broad-spectrum antibiotics to include piperacillin/tazobactam, azithromycin, and vancomycin given suspected p Related to a combination of the above. Wean oxygen as tolerated; will likely need home oxygen evaluation before discharge. May be related to infection though with suspicions for lung malignancy, will obtain right upper quadrant ultrasound. He is dry on exam and by labs and will be cautiously hydrated with close monitoring of volume status. Bedside swallow ordered for a.m. as I suspect he may be at risk for aspiration. 09/12/21 -on a heparin drip and being monitored on telemetry. -echocardiogram ordered to assess for heart strain though no evidence of such on chest CTA. -Venous Doppler ultrasounds of the lower extremities are pending to rule out DVT. -chest CT showed left hilar and subcarinal lymphadenopathy with occlusion of the left lower lobe bronchus which is suspicious for malignancy. This may very well be what has precipitated the pulmonary embolism. -next of kin and/or [id number] to discuss the next step and whether not they would want to pursue a diagnosis and treatment in this unfortunate and chronically debilitated gentleman. -continue IV piperacillin/tazobactam, azithromycin, and vancomycin given suspected postobstructive pn
--- NOTE | 2021-09-23 12:06 | PM.PNNEP ---
Progress Note: A&P Assessment and Plan (1) ARIANNE (acute kidney injury): Code(s): N17.9 - Acute kidney failure, unspecified Status: Acute Assessment and Plan: continues to fluctuate (1.2 - 1.4mg/dl) had been running ~ 0.6 - 1.0mg/dl earlier this year possibly due to contrast versus medications related(?) has been on several antibiotics recently... however, no rash or peripheral eosinophilia poor nutritional intake partly to blame(?) - although has good urine output evaluation to date: renal ultrasound normal CPK low urine electrolytes non-prerenal possibly new baseline(?) follow trend of repeat labs and UOP (2) Acute pulmonary embolism: Qualifiers: Acute cor pulmonale presence: without acute cor pulmonale Pulmonary embolism type: unspecified Qualified Code(s): I26.99 - Other pulmonary embolism without acute cor pulmonale Code(s): I26.99 - Other pulmonary embolism without acute cor pulmonale Status: Acute Assessment and Plan: on anticoagulation (heparin gtt) switch to eliquis or coumadin(?) (3) Pneumonia: Qualifiers: Laterality: unspecified laterality Lung location: unspecified part of lung Pneumonia type: due to unspecified organism Qualified Code(s): J18.9 - Pneumonia, unspecified organism Code(s): J18.9 - Pneumonia, unspecified organism Status: Acute Assessment and Plan: on IV antibiotics follow culture data Will continue to follow intermittently. Subjective Date/time seen: 09/23/21 12:06 Mentation appears about the same - awake but nonverbal; no other issues/events overnight or earlier this AM; nursing reports on schedule for G-tube placement today. Exam Narrative: General: elderly male in NAD; non-verbal Heart: normal S1 and S2; no rub Lungs: clear to auscultation Abdomen: soft, nontender, nondistended, positive bowel sounds Extremities: no cyanosis or clubbing; no edema Skin: warm and dry Objective Data Vital Signs Vital Signs: Vital Signs Temp Pulse Resp BP Pulse Ox 09/23/21 09:36 60 16 09/23/21 09:25 60 16 09/23/21 06:15 36.1 C L 62 20 102/67 98 09/23/21 02:22 59 L 16 09/22/21 22:00 35.9 C L 78 18 122/72 95 09/22/21 20:11 63 16 09/22/21 14:47 36.9 C 84 16 109/64 96 09/22/21 14:15 62 16 Intake/Output Intake/Output: Intake & Output 09/20/21 09/21/21 09/22/21 09/23/21 23:59 23:59 23:59 23:59 Intake Total 4450 600 2600 300 Output Total 3100 1750 4100 Balance 1350 -1150 -1500 300 Meds/Results Medications: Active Medications Generic Name Dose Route Start Last Admin Trade Name Freq PRN Reason Stop Dose Admin Acetaminophen 650 mg 09/11/21 18:21 Acetaminophen 325 Mg Tablet PO Q6H PRN Pain Albuterol 5 mg 09/11/21 14:00 09/23/21 09:25 Albuterol Sulfate Neb 2.5 Mg/0.5 Ml Inh INHALATION 5 mg Q6HRT JESSICA Administration Albuterol 2 puff 09/11/21 18:16 Albuterol Sulfate (*Sp) Aerosol 1 Puff INHALATION QIDRT PRN Shortness Of Breath Bupropion HCl 75 mg 09/12/21 09:00 09/23/21 08:11 Bupropion Hcl 75 Mg Tablet PO Not Given DAILY JESSICA Citalopram Hydrobromide 20 mg 09/12/21 09:00 09/23/21 08:11 Citalopram Hydrobromide 20 Mg Tablet PO Not Given DAILY JESSICA Dextrose 12.5 gm 09/11/21 23:33 Dextrose 50% 25 Gm/50 Ml Syringe IV PUSH PRN PRN Hypoglycemia Protocol Donepezil HCl 10 mg 09/11/21 21:00 09/22/21 20:16 Donepezil Hcl 10 Mg Tablet PO Not Given HS JESSICA Ergocalciferol 5,000 unit 09/15/21 09:00 09/22/21 08:15 Ergocalciferol 50,000 Unit Capsule PO Not Given Tu@0900 JESSICA Glucagon 1 mg 09/11/21 23:33 Glucagon For Inj 1 Mg Vial IM PRN PRN Hypoglycemia Protocol Glucose 15 gm 09/11/21 23:33 Glucose Oral Gel 15 Gm Of Glucse In 37.5 Gm Tube PO PRN PRN Hypoglycemia Protocol Heparin S
[2021-09-23] MEDS: LACTATED RINGERS 1,000 ML 150 ML IV CONT (12:26)
[2021-09-23 12:29] LABS: Glucose Point of Care 89 mg/dl (65-105)
--- NOTE | 2021-09-23 12:54 | WPDANESEPPF ---
Anes - Initial Pre Proc Eval Procedure: Operation Date: 09/22/21 13:45 Proposed Procedures p Esophagogastroduodenoscopy - Jesus Ray MD s Percutaneous Endoscopic Gastrostomy - Jesus Ray MD Operation Date: 09/23/21 13:30 Proposed Procedures p Percutaneous Endoscopic Gastrostomy - Jesus Ray MD Date/Time: 09/23/21 12:54 Surgeon: GERMAN Prakash Pre Op Diagnosis: Acute pulmonary embolism/pneumonia Patient Data Age: 66 Gender: M Height: 1.78 m Weight: 77.8 kg Last Vital Signs Temp 97.2 F L 09/23/21 12:20 Pulse 63 09/23/21 12:20 Resp 20 09/23/21 12:20 BP 98/61 L 09/23/21 12:20 Pulse Ox 96 09/23/21 12:20 Allergies Allergy/AdvReac Type Severity Reaction Status Date / Time No Known Allergies Allergy Verified 09/11/21 15:41 Home Medications Medication Instructions Recorded Confirmed Type acetaminophen 650 mg PO Q6H PRN 09/11/21 09/11/21 History bupropion HCl 75 mg PO DAILY 09/11/21 09/11/21 History cholecalciferol (vitamin D3) 1,250 mcg PO WEEKLY 09/11/21 09/11/21 History citalopram 20 mg PO DAILY 09/11/21 09/11/21 History donepezil 10 mg PO HS 09/11/21 09/11/21 History mirtazapine 15 mg PO DAILY 09/11/21 09/11/21 History Laboratory Tests 09/22/21 09/22/21 09/23/21 18:29 23:55 05:27 Creatinine 1.20 mg/dL mg/dL (0.7-1.3) Estim Creat Clear Calc 54 ml/min ml/min Estimated GFR 60 (59 - ) POC Capillary Glucose 101 mg/dl mg/dl 103 mg/dl mg/dl (65-105) (65-105) Phosphorus 4.0 mg/dL mg/dL (2.5-4.5) 09/23/21 09/23/21 09/23/21 05:36 11:42 12:27 Creatinine Estim Creat Clear Calc Estimated GFR POC Capillary Glucose 109 mg/dl H mg/dl 92 mg/dl mg/dl 89 mg/dl mg/dl (65-105) (65-105) (65-105) Phosphorus Patient hx anesthesia problems: none Family hx anesthesia problems: none Results Review: All pre-operative results and documents have been reviewed as part of the pre-operative evaluation. [facility] Past Medical History Medical History (Updated 09/18/21 @ 18:11 by Jesus Ray MD) ARIANNE (acute kidney injury) Dementia Depression Dysphagia Surgical History Surgical History Surgical history unknown Family History Family History Other Family history unknown Social History Social History Social History: Surrogate decision maker: Giancarlo Cardona. Code status: Full code. Smoking status: Unknown if ever smoked Alcohol intake: unknown Substance use: unknown Additional living arrangements comments: Resident of [place]. Spiritual care concerns: No Anes - Eval Final PreProcedure Day of Procedure 09/23/21 12:54 Patient weight: overweight Heart: regular rate and rhythm Lungs: clear to auscultation Airway: Mallampati scale class III Neurological: alert and oriented (opens eyes but not responding) Last oral intake: >/= 8 hours ASA classification: III Emergent: no Anesthetic plan: proceed Anesthesia type and monitoring: general GIVS and standard monitoring Results Review: All pre-operative results and documents have been reviewed as part of the pre-operative evaluation. Informed Consent: The patient's anesthetic plan and its attendant risks and benefits were discussed with the patient/family/POA. Questions were solicited and answers provided to the satisfaction of the patient/family/POA.
--- NOTE | 2021-09-23 15:06 | PCDIET ---
Pt now has PEG placed. Consult for tube feeds to start this PM. Tube feeding recommendations: Jevity 1.5 at 65 ml/hr providing 2145 kcals/91 gms protein/1086 ml water. Free water flush 45 ml q 4 hours *Recommend to initiate tube feeding at 20ml/hr and advance by 10ml q 4 hrs as tolerated to reach goal rate. Will monitor.
[2021-09-23 17:59] LABS: Glucose Point of Care 89 mg/dl (65-105)
[2021-09-23] MEDS: DONEPEZIL HCL 10 MG TABLET PO (20:12)
[2021-09-23] MEDS: PANTOPRAZOLE SODIUM IV 40 MG VIAL IV PUSH (20:12)
[2021-09-24] VITALS (11 sets, daily range): BP systolic 100–116; BP diastolic 47–72; PULSE 64–77; RESP 14–18; TEMP 36.1–36.5; O2SAT 97–98
[2021-09-24] MEDS: PIPERACILLIN/TAZOBACTAM SOD 4.5 GM in SODIUM CHLORIDE 0.9% IV 100 ML 200 ML IVPB ×2 (00:14→05:36)
[2021-09-24 00:22] LABS: Glucose Point of Care 96 mg/dl (65-105)
[2021-09-24] MEDS: ALBUTEROL SULFATE NEB 2.5 MG/0.5 ML INH 5 MG INHALATION ×4 (02:07→19:53)
[2021-09-24] MEDS: IPRATROPIUM BR 0.02% INH SOLN 0.5 MG/2.5 ML VIAL INHALATION ×4 (02:07→19:53)
[2021-09-24 05:35] LABS: Glucose Point of Care 123 mg/dl (65-105)
[2021-09-24 05:48] LABS: Basophils Absolute Auto 0.1 K/mm3 (0.0-0.1); Eosinophils Absolute Auto 0.1 K/mm3 (0-0.3); Eosinophils Percent Auto 1.3 % (0-4.4); Hemoglobin 11.3 g/dL (14.0-18.0); Immature Granulocyte Absolute 0.02 K/mm3 (0.00-0.031); Immature Granulocyte Percent A 0.3 % (0-0.5); Lymphocytes Absolute Auto 1.24 K/mm3 (0.9-3.2); Lymphocytes Percent Auto 19.7 % (18.3-44.2); Mean Corpuscular HGB Conc 30.5 g/dl (32-36); Mean Corpuscular Hemoglobin 29.2 pg (26-34); Mean Corpuscular Volume 95.6 fl (80-100); Mean Platelet Volume 11.4 fl (7.4-10.4); Monocytes Absolute Auto 0.4 K/mm3 (0.1-0.6); Monocytes Percent Auto 5.7 % (2.6-8.5); Neutrophils Absolute Auto 4.5 K/mm3 (1.3-6.7); Platelet Count Result 156 k/mm3 (150-375); Red Blood Count 3.87 M/mm3 (4.6-6.20); Red Cell Distribution Width 14.6 % (11.5-14.5); White Blood Count 6.3 K/mm3 (4.5-10.0)
[2021-09-24 06:19] LABS: Alanine Aminotransferase 64 U/L (6-50); Albumin Level 2.5 g/dL (3.5-5.1); Alkaline Phosphatase 85 U/L (38-126); Anion Gap 5 mmol/L (8-16); Aspartate Amino Transferase 66 U/L (17-59); Bilirubin,Total 0.5 mg/dL (0.2-1.3); Blood Urea Nitrogen 25 mg/dL (9-20); Calcium 8.7 mg/dL (8.4-10.2); Carbon Dioxide 19 mmol/L (22-30); Chloride 111 mmol/L (98-107); Estimated CRCL calculation 50 ml/min; Estimated Glomerular Filt Rate 55; Glucose 111 mg/dL (65-110); Magnesium 2.2 mg/dL (1.6-2.3); Phosphorus 3.6 mg/dL (2.5-4.5); Potassium 3.5 mmol/L (3.4-5.0); Sodium 135 mmol/L (137-145); Triglycerides 125 mg/dL (<150)
[2021-09-24] MEDS: MIRTAZAPINE 15 MG TABLET PO (09:03)
[2021-09-24] MEDS: DOXYCYCLINE 100 MG/NS 100 ML 100 MG/100 ML BAG IVPB (09:03)
[2021-09-24] MEDS: CITALOPRAM HYDROBROMIDE 20 MG TABLET PO (09:03)
[2021-09-24] MEDS: PANTOPRAZOLE SODIUM IV 40 MG VIAL IV PUSH ×2 (09:03→21:54)
[2021-09-24] MEDS: buPROPion HCL 75 MG TABLET PO (09:03)
[2021-09-24 11:32] LABS: Glucose Point of Care 121 mg/dl (65-105)
[2021-09-24] MEDS: APIXABAN 5 MG TABLET 10 MG PO ×2 (12:02→21:54)
--- NOTE | 2021-09-24 16:18 | WPDGIPROGNO ---
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's esophagus without dysplasia Status: Acute Assessment and Plan: incidental finding also with nodule removed- pending biopsies ppi daily repeat egd based on path report (3) Suspected malignant neoplasm of lung: Code(s): R68.89 - Other general symptoms and signs Status: Acute Assessment and Plan: on rx will follow up with pulmonary (4) Postobstructive pneumonia: Code(s): J18.9 - Pneumonia, unspecified organism Status: Acute (5) Acute pulmonary embolism: Qualifiers: Acute cor pulmonale presence: without acute cor pulmonale Pulmonary embolism type: unspecified Qualified Code(s): I26.99 - Other pulmonary embolism without acute cor pulmonale Code(s): I26.99 - Other pulmonary embolism without acute cor pulmonale Status: Acute Assessment and Plan: now on eliquis (6) Dementia: Code(s): F03.90 - Unspecified dementia without behavioral disturbance Status: Acute Subjective Date/time seen: 09/24/21 16:18 Interval history: tolerating tube feeding by G-tube at goal, no issues. Review of Systems Review of Systems: All systems reviewed & are unremarkable except as noted in HPI and below Exam Const: General: comfortable and no acute distress Other: Chronically ill-appearing lying in bed alert but nonverbal which is reportedly his baseline HENMT: General nose exam: Normal nares present Eyes: General: appearance normal, both eyes and all related structures Neck: Neck: no JVD Resp: Auscultation: no crackles and diminished lung sounds Cardio: Rate: regular rate Rhythm: regular rhythm GI: Inspection: non-distended GI Palp: Yes Soft to palpation and No Guarding due to palpation present (GI) Auscultation: normal bowel sounds Other: G-tube in position, looks ok Skin: General skin exam: normal color Neuro: Cognition (Neuro): abnormal cognition Other: awake but not following commands- ? baseline Extrem: General: normal to inspection Objective Data Vital Signs Vital Signs: Vital Signs - 24 hr 09/23/21 21:36 09/23/21 21:45 09/23/21 22:00 Temperature 97.5 F L Pulse Rate 69 72 82 Respiratory Rate 14 14 18 Blood Pressure 102/71 Pulse Oximetry 99 09/24/21 02:12 09/24/21 02:18 09/24/21 06:00 Temperature 97.7 F Pulse Rate 64 69 77 Respiratory Rate 14 14 18 Blood Pressure 100/63 Pulse Oximetry 97 09/24/21 09:36 09/24/21 14:00 09/24/21 14:20 Temperature 97.0 F L Pulse Rate 68 73 70 Respiratory Rate 14 18 14 Blood Pressure 116/72 Pulse Oximetry 98 09/24/21 14:27 Temperature Pulse Rate 68 Respiratory Rate 14 Blood Pressure Pulse Oximetry Intake/Output Intake/Output: Intake & Output 09/21/21 09/22/21 09/23/21 09/24/21 23:59 23:59 23:59 23:59 Intake Total 600 2600 595 390 Output Total 1750 4100 770 850 Balance -1150 -1500 -175 -460 Meds/Results Medications: Active Medications Generic Name Dose Route Start Last Admin Trade Name Freq PRN Reason Stop Dose Admin Acetaminophen 650 mg 09/11/21 18:21 Acetaminophen 325 Mg Tablet PO Q6H PRN Pain Albuterol 5 mg 09/11/21 14:00 09/24/21 14:26 Albuterol Sulfate Neb 2.5 Mg/0.5 Ml Inh INHALATION 5 mg Q6HRT JESSICA Administration Albuterol 2 puff 09/11/21 18:16 Albuterol Sulfate (*Sp) Aerosol 1 Puff INHALATION QIDRT PRN Shortness Of Breath Apixaban 10 mg 09/24/21 10:35 09/24/21 12:02 Apixaban 5 Mg Tablet PO 09/30/21 21:01 10 mg Q12HR JESSICA Administration Apixaban 5 mg 10/01/21 09:00 Apixaban 5 Mg Tablet PO Q12HR JESSICA Bupropion HCl 75 mg 09/12/21 09:00 09/24/21 09:03 Bupropion Hcl 75 Mg Tablet PO 75 mg DAILY [facility] Administ
[2021-09-24 16:53] LABS: Glucose Point of Care 99 mg/dl (65-105)
--- NOTE | 2021-09-24 17:34 | PM.IMPN ---
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's esophagus without dysplasia Status: Acute Assessment and Plan: PPI daily, follow-up with GI outpatient (3) Suspected malignant neoplasm of lung: Code(s): R68.89 - Other general symptoms and signs Status: Acute Assessment and Plan: Follow-up with pulmonology outpatient, follow-up with repeat CT in 6 weeks (4) Acute pulmonary embolism: Qualifiers: Acute cor pulmonale presence: without acute cor pulmonale Pulmonary embolism type: unspecified Qualified Code(s): I26.99 - Other pulmonary embolism without acute cor pulmonale Code(s): I26.99 - Other pulmonary embolism without acute cor pulmonale Status: Acute Assessment and Plan: Continue Eliquis (5) Dementia: Code(s): F03.90 - Unspecified dementia without behavioral disturbance Status: Acute Assessment and Plan: Stable, appears to be a baseline (6) Postobstructive pneumonia: Code(s): J18.9 - Pneumonia, unspecified organism Status: Acute Assessment and Plan: Completed a 14 day course of antibiotics Subjective Date/time seen: 09/24/21 17:34 Review of Systems Review of Systems: ROS unobtainable: Yes unobtainable due to medical condition and unobtainable due to mental status Exam Const: General: comfortable and no acute distress Other: Appears chronically ill, alert, nonverbal HENMT: Mouth: Yes moist mucous membranes and Yes dry mucous membranes Eyes: Sclera: sclerae normal Neck: Neck: supple and no JVD Lymphatic: lymphadenopathy not noted Resp: Effort & Inspection: normal respiratory effort Auscultation: diminished lung sounds bilateral and diffuse Cardio: Rate: regular rate Rhythm: regular rhythm Heart sounds: S1 normal heart sound present and S2 normal heart sound present GI: Inspection: non-distended GI Palp: Yes Soft to palpation and No Tenderness to palpation present (GI) Skin: General skin exam: normal color and no rashes or lesions noted Neuro: Cognition (Neuro): abnormal cognition Extrem: General: normal to inspection Right upper extremity: no edema Left upper extremity: no edema Right lower extremity: no edema Left lower extremity: no edema Objective Data Vital Signs Vital Signs: Vital Signs - 24 hr 09/23/21 21:36 09/23/21 21:45 09/23/21 22:00 Temperature 97.5 F L Pulse Rate 69 72 82 Respiratory Rate 14 14 18 Blood Pressure 102/71 Pulse Oximetry 99 09/24/21 02:12 09/24/21 02:18 09/24/21 06:00 Temperature 97.7 F Pulse Rate 64 69 77 Respiratory Rate 14 14 18 Blood Pressure 100/63 Pulse Oximetry 97 09/24/21 09:36 09/24/21 14:00 09/24/21 14:20 Temperature 97.0 F L Pulse Rate 68 73 70 Respiratory Rate 14 18 14 Blood Pressure 116/72 Pulse Oximetry 98 09/24/21 14:27 Temperature Pulse Rate 68 Respiratory Rate 14 Blood Pressure Pulse Oximetry Intake/Output Intake/Output: Intake & Output 09/21/21 09/22/21 09/23/21 09/24/21 23:59 23:59 23:59 23:59 Intake Total 600 2600 595 390 Output Total 1750 4100 770 850 Balance -1150 -1500 -175 -460 Meds/Results Medications: Active Medications Generic Name Dose Route Start Last Admin Trade Name Freq PRN Reason Stop Dose Admin Acetaminophen 650 mg 09/11/21 18:21 Acetaminophen 325 Mg Tablet PO Q6H PRN Pain Albuterol 5 mg 09/11/21 14:00 09/24/21 14:26 Albuterol Sulfate Neb 2.5 Mg/0.5 Ml Inh INHALATION 5 mg Q6HRT JESSICA Administration Albuterol 2 puff 09/11/21 18:16 Albuterol Sulfate (*Sp) Aerosol 1 Puff INHALATION QIDRT PRN Shortness Of Breath Ap
[2021-09-24 20:09] LABS: Glucose Point of Care 132 mg/dl (65-105)
[2021-09-24] MEDS: DONEPEZIL HCL 10 MG TABLET PO (21:54)
[2021-09-25] VITALS (7 sets, daily range): BP systolic 108; BP diastolic 62; PULSE 66–86; RESP 12–20; TEMP 36.1; O2SAT 99
[2021-09-25 00:26] LABS: Glucose Point of Care 119 mg/dl (65-105)
[2021-09-25] MEDS: IPRATROPIUM BR 0.02% INH SOLN 0.5 MG/2.5 ML VIAL INHALATION ×3 (02:05→13:44)
[2021-09-25] MEDS: ALBUTEROL SULFATE NEB 2.5 MG/0.5 ML INH 5 MG INHALATION ×3 (02:05→13:43)
[2021-09-25 05:26] LABS: Glucose Point of Care 109 mg/dl (65-105)
[2021-09-25 06:18] LABS: Phosphorus 3.8 mg/dL (2.5-4.5)
[2021-09-25 07:59] LABS: Albumin Level 2.4 g/dL (3.5-5.1); Anion Gap 5 mmol/L (8-16); Blood Urea Nitrogen 25 mg/dL (9-20); Calcium 8.9 mg/dL (8.4-10.2); Carbon Dioxide 25 mmol/L (22-30); Chloride 108 mmol/L (98-107); Estimated CRCL calculation 47 ml/min; Estimated Glomerular Filt Rate 50; Glucose 121 mg/dL (65-110); Phosphorus 3.8 mg/dL (2.5-4.5); Potassium 3.9 mmol/L (3.4-5.0); Sodium 138 mmol/L (137-145)
[2021-09-25] MEDS: MIRTAZAPINE 15 MG TABLET PO (08:19)
[2021-09-25] MEDS: buPROPion HCL 75 MG TABLET PO (08:19)
[2021-09-25] MEDS: APIXABAN 5 MG TABLET 10 MG PO (08:19)
[2021-09-25] MEDS: CITALOPRAM HYDROBROMIDE 20 MG TABLET PO (08:20)
[2021-09-25] MEDS: PANTOPRAZOLE SODIUM IV 40 MG VIAL IV PUSH (08:20)
--- NOTE | 2021-09-25 09:33 | PCNFU ---
Nutrition Follow-Up Complete: Inadequate energy intake related to NPO as evidenced by nursing report and no diet order for 5 days. Goal: Meet nutritional needs Patient is progressing towards goal. We will continue current goal. Pt current nutrition is Jevity 1.5 at 65 ml/hr over 22 hours. Last recorded weight is 77.8 kg-stable Bowel Motility: +BM reported 09/23 Labs Reviewed:Alb 2.4,BUN 25, Cr 1.4,Glu 121, GFR 50 Meds Noted:Protonix, Albuterol, Eliquis, Celexa, Remeron Skin: stage II-left buttocks. Additional Notes: Patient current with PEG. Tube feeding running of Jevity 1.5 at 65 ml/hr over 22 hours, providing 2145 kcals/91 gms protein/1086 ml water. Free water flush 45 ml q 4 hours. Plans for discharge back to [place] today. Agree with diet orders. Monitor for a diet order, wt, labs. Follow up every Tuesday and Tuesday.
--- NOTE | 2021-09-25 11:02 | P.PNNP_ITS ---
Progress Note: A&P Assessment and Plan (1) ARIANNE (acute kidney injury): Code(s): N17.9 - Acute kidney failure, unspecified Status: Acute Assessment and Plan: * continues to fluctuate (1.2 - 1.4mg/dl) * had been running ~ 0.6 - 1.0mg/dl earlier this year * possibly due to contrast versus medications related(?) * however, contrast effect should have worn off by now * has been on several antibiotics recently...so AIN is possible * however, no rash or peripheral eosinophilia * poor nutritional intake partly to blame(?) - although has good urine output * evaluation to date: * renal ultrasound normal * CPK low * urine electrolytes non-prerenal * possibly new baseline(?) * follow trend of repeat labs and UOP (2) Acute pulmonary embolism: Qualifiers: Acute cor pulmonale presence: without acute cor pulmonale Pulmonary embolism type: unspecified Qualified Code(s): I26.99 - Other pulmonary embolism without acute cor pulmonale Code(s): I26.99 - Other pulmonary embolism without acute cor pulmonale Status: Acute Assessment and Plan: * on anticoagulation ( was on heparin gtt) * now currently on Eliquis (3) Pneumonia: Qualifiers: Laterality: unspecified laterality Lung location: unspecified part of lung Pneumonia type: due to unspecified organism Qualified Code(s): J18.9 - Pneumonia, unspecified organism Code(s): J18.9 - Pneumonia, unspecified organism Status: Acute Assessment and Plan: * completed course of antibiotics * supportive therapy Will continue to follow intermittently. Subjective Date/time seen: 09/25/21 11:02 Appears to be tolerating tube feeds following G-tube placement; no new issues or problems overnight or earlier this AM per nursing; mentation remains the same/unchanged (non-verbal). Exam Narrative: General: elderly male in NAD; non-verbal Heart: normal S1 and S2; no rub Lungs: clear anteriorly Abdomen: soft, nontender, nondistended, positive bowel sounds Extremities: no cyanosis or clubbing; no edema Skin: warm and intact Objective Data Vital Signs Vital Signs: Vital Signs Temp Pulse Resp BP Pulse Ox 09/25/21 08:16 84 12 09/25/21 08:13 86 12 09/25/21 06:00 36.1 C L 83 20 108/62 99 09/25/21 02:15 67 14 09/25/21 02:09 66 14 09/24/21 22:00 36.1 C L 74 18 104/47 L 97 09/24/21 20:53 36.1 C L 74 18 104/47 L 97 09/24/21 20:09 71 16 09/24/21 19:57 73 18 09/24/21 14:27 68 14 09/24/21 14:20 70 14 09/24/21 14:00 36.1 C L 73 18 116/72 98 Intake/Output Intake/Output: Intake & Output 09/22/21 09/23/21 09/24/21 09/25/21 23:59 23:59 23:59 23:59 Intake Total 2600 019 773 1700 Output Total 4100 770 1600 800 Balance -5059 -175 -9447 623 Meds/Results Medications: Active Medications Generic Name Dose Route Start Last Admin Trade Name Freq PRN Reason Stop Dose Admin Acetaminophen 650 mg 09/11/21 18:21 Acetaminophen 325 Mg Tablet PO Q6H PRN Pain Albuterol 5 mg 09/11/21 14:00 09/25/21 08:15 Albuterol Sulfate Neb 2.5 Mg/0.5 Ml Inh INHALATION 5 mg Q6HRT JESSICA Administration
--- NOTE | 2021-09-25 11:02 | PM.PNNEP ---
Progress Note: A&P Assessment and Plan (1) ARIANNE (acute kidney injury): Code(s): N17.9 - Acute kidney failure, unspecified Status: Acute Assessment and Plan: continues to fluctuate (1.2 - 1.4mg/dl) had been running ~ 0.6 - 1.0mg/dl earlier this year possibly due to contrast versus medications related(?) however, contrast effect should have worn off by now has been on several antibiotics recently...so AIN is possible however, no rash or peripheral eosinophilia poor nutritional intake partly to blame(?) - although has good urine output evaluation to date: renal ultrasound normal CPK low urine electrolytes non-prerenal possibly new baseline(?) follow trend of repeat labs and UOP (2) Acute pulmonary embolism: Qualifiers: Acute cor pulmonale presence: without acute cor pulmonale Pulmonary embolism type: unspecified Qualified Code(s): I26.99 - Other pulmonary embolism without acute cor pulmonale Code(s): I26.99 - Other pulmonary embolism without acute cor pulmonale Status: Acute Assessment and Plan: on anticoagulation ( was on heparin gtt) now currently on Eliquis (3) Pneumonia: Qualifiers: Laterality: unspecified laterality Lung location: unspecified part of lung Pneumonia type: due to unspecified organism Qualified Code(s): J18.9 - Pneumonia, unspecified organism Code(s): J18.9 - Pneumonia, unspecified organism Status: Acute Assessment and Plan: completed course of antibiotics supportive therapy Will continue to follow intermittently. Subjective Date/time seen: 09/25/21 11:02 Appears to be tolerating tube feeds following G-tube placement; no new issues or problems overnight or earlier this AM per nursing; mentation remains the same/unchanged (non-verbal). Exam Narrative: General: elderly male in NAD; non-verbal Heart: normal S1 and S2; no rub Lungs: clear anteriorly Abdomen: soft, nontender, nondistended, positive bowel sounds Extremities: no cyanosis or clubbing; no edema Skin: warm and intact Objective Data Vital Signs Vital Signs: Vital Signs Temp Pulse Resp BP Pulse Ox 09/25/21 08:16 84 12 09/25/21 08:13 86 12 09/25/21 06:00 36.1 C L 83 20 108/62 99 05/13/22 02:15 67 14 09/25/21 02:09 66 14 09/24/21 22:00 36.1 C L 74 18 104/47 L 97 09/24/21 20:53 36.1 C L 74 18 104/47 L 97 09/24/21 20:09 71 16 09/24/21 19:57 73 18 09/24/21 14:27 68 14 09/24/21 14:20 70 14 09/24/21 14:00 36.1 C L 73 18 116/72 98 Intake/Output Intake/Output: Intake & Output 09/22/21 09/23/21 09/24/21 09/25/21 23:59 23:59 23:59 23:59 Intake Total 2600 252 931 5407 Output Total 4100 770 1600 800 Balance -1500 175 -4530 623 Meds/Results Medications: Active Medications Generic Name Dose Route Start Last Admin Trade Name Freq PRN Reason Stop Dose Admin Acetaminophen 650 mg 09/11/21 18:21 Acetaminophen 325 Mg Tablet PO Q6H PRN Pain Albuterol 5 mg 09/11/21 14:00 09/25/21 08:15 Albuterol Sulfate Neb 2.5 Mg/0.5 Ml Inh INHALATION 5 mg Q6HRT JESSICA Administration Albuterol 2 puff 09/11/21 18:16 Albuterol Sulfate (*Sp) Aerosol 1 Puff INHALATION QIDRT PRN Shortness Of Breath Apixaban 10 mg 09/24/21 10:35 09/25/21 08:19 Apixaban 5 Mg Tablet PO 09/30/21 21:01 10 mg Q12HR JESSICA Administration Apixaban 5 mg 10/01/21 09:00 Apixaban 5 Mg Tablet PO Q12HR JESSICA Bupropion HCl 75 mg 09/12/21 09:00 09/25/21 08:19 Bupropion Hcl 75 Mg Tablet PO 75 mg DAILY EJSSICA Administration Citalopram Hydrobromide 20 mg 09/12/21 09:00 09/25/21 08:20 Citalopram Hydrobromide 20 Mg Tablet PO 20 mg DAILY JESSICA Administration Dextrose 12.5 gm 09/11/21 23:33 Dextrose 50% 25 Gm/50 Ml Syringe IV PUSH PRN PRN Hypoglycemia Protocol Donepezil HCl 10 mg 09/11/21 21:00
[2021-09-25 11:53] LABS: Glucose Point of Care 125 mg/dl (65-105)
--- NOTE | 2021-09-25 13:07 | WPDGIPROGNO ---
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's esophagus without dysplasia Status: Acute Assessment and Plan: incidental finding also with nodule removed- biopsy showed grade dysplasia he will need ppi twice daily joint terminal attack controller on discharge and also will refer to have another EGD in 2-3 months for Villalobos's treatment to [facility] (site will need to be rechecked again and probably Barrx treatment) (3) Suspected malignant neoplasm of lung: Code(s): R68.89 - Other general symptoms and signs Status: Acute Assessment and Plan: on rx will follow up with pulmonary (4) Postobstructive pneumonia: Code(s): J18.9 - Pneumonia, unspecified organism Status: Acute Assessment and Plan: treated (5) Acute pulmonary embolism: Qualifiers: Acute cor pulmonale presence: without acute cor pulmonale Pulmonary embolism type: unspecified Qualified Code(s): I26.99 - Other pulmonary embolism without acute cor pulmonale Code(s): I26.99 - Other pulmonary embolism without acute cor pulmonale Status: Acute Assessment and Plan: now on eliquis (6) Dementia: Code(s): F03.90 - Unspecified dementia without behavioral disturbance Status: Acute Subjective Date/time seen: 09/25/21 13:07 Interval history: no new issues, tolerating G-tube Review of Systems Review of Systems: All systems reviewed & are unremarkable except as noted in HPI and below Exam Const: General: comfortable and no acute distress Other: Chronically ill-appearing lying in bed alert but nonverbal which is reportedly his baseline HENMT: General nose exam: Normal nares present Eyes: General: appearance normal, both eyes and all related structures Neck: Neck: no JVD Resp: Auscultation: no crackles and diminished lung sounds Cardio: Rate: regular rate Rhythm: regular rhythm GI: Inspection: non-distended GI Palp: Yes Soft to palpation and No Guarding due to palpation present (GI) Auscultation: normal bowel sounds Other: G-tube in position, looks ok Skin: General skin exam: normal color Neuro: Cognition (Neuro): abnormal cognition Other: awake but not following commands- ? baseline Extrem: General: normal to inspection Objective Data Vital Signs Vital Signs: Vital Signs - 24 hr 09/24/21 14:00 09/24/21 14:20 09/24/21 14:27 Temperature 97.0 F L Pulse Rate 73 70 68 Respiratory Rate 18 14 14 Blood Pressure 116/72 Pulse Oximetry 98 09/24/21 19:57 09/24/21 20:09 09/24/21 20:53 Temperature 97 F L Pulse Rate 73 71 74 Respiratory Rate 18 16 18 Blood Pressure 104/47 L Pulse Oximetry 97 09/24/21 22:00 09/25/21 02:09 09/25/21 02:15 Temperature 97 F L Pulse Rate 74 66 67 Respiratory Rate 18 14 14 Blood Pressure 104/47 L Pulse Oximetry 97 09/25/21 06:00 09/25/21 08:13 09/25/21 08:16 Temperature 97 F L Pulse Rate 83 86 84 Respiratory Rate 20 12 12 Blood Pressure 108/62 Pulse Oximetry 99 Intake/Output Intake/Output: Intake & Output 09/22/21 09/23/21 09/24/21 09/25/21 23:59 23:59 23:59 23:59 Intake Total 2600 284 406 5851 Output Total 4100 770 1600 800 Balance -7380 -931 -1123 623 Meds/Results Medications: Active Medications Generic Name Dose Route Start Last Admin Trade Name Freq PRN Reason Stop Dose Admin Acetaminophen 650 mg 09/11/21 18:21 Acetaminophen 325 Mg Tablet PO Q6H PRN Pain Albuterol 5 mg 09/11/21 14:00 09/25/21 08:15 Albuterol Sulfate Neb 2.5 Mg/0.5 Ml Inh INHALATION 5 mg Q6HRT JESSICA Administration Albuterol 2 puff 09/11/21 18:16 Albuterol Sulfate (*Sp) Aerosol 1 Puff INHALATION QIDRT PRN Shortness Of Breath Apixaban 10 mg 09/24/21 10:35 09/25/21 08:19 Apixaba
[2021-09-25 13:16] LABS: EDCOVIDSCREEN Negative (Negative)
--- NOTE | 2021-09-25 15:55 | PM.DS ---
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 - Villalobos's esophagus without dysplasia Status: Acute Assessment and Plan: PPI daily, follow-up with GI outpatient (3) Suspected malignant neoplasm of lung: Code(s): R68.89 - Other general symptoms and signs Status: Acute Assessment and Plan: Follow-up with pulmonology outpatient, follow-up with repeat CT in 6 weeks (4) Acute pulmonary embolism: Qualifiers: Acute cor pulmonale presence: without acute cor pulmonale Pulmonary embolism type: unspecified Qualified Code(s): I26.99 - Other pulmonary embolism without acute cor pulmonale Code(s): I26.99 - Other pulmonary embolism without acute cor pulmonale Status: Acute Assessment and Plan: Continue Eliquis (5) Dementia: Code(s): F03.90 - Unspecified dementia without behavioral disturbance Status: Acute Assessment and Plan: Stable, appears to be a baseline (6) Postobstructive pneumonia: Code(s): J18.9 - Pneumonia, unspecified organism Status: Acute Assessment and Plan: Completed a 14 day course of antibiotics DS: Summary Hospital Course Reason for hospitalization: Tachycardia and hypoxia Hospital Course: 66-year-old male with past medical history significant for dementia and depression presented to the ER from his nursing facility for a high heart rate and low O2 sat. He is nonverbal at baseline. He was unable to provide history. In the ER, he had blood pressures in the 90s with an elevated D-dimer. CTA showed acute PE with associated lymphadenopathy and occlusion of the left lower lobe bronchus concerning for malignancy with postobstructive pneumonia. He was started on a heparin drip as well as vancomycin, Zosyn azithromycin. He was noted to have elevated LFTs and so right upper quadrant ultrasound was ordered. He was rehydrated. There was concern for dysphagia and possibly recurrent aspiration pneumonia therefore a swallow eval was ordered. Right upper quadrant ultrasound showed a hepatic lesion that was suspicious for hemangioma. Dopplers ordered of his lower extremities were negative for DVT. He did experience some hypokalemia and this was repleted with IV potassium. Pulmonology was consulted for the PE and recommended transitioning to an oral anticoagulation medication and thought that that PE was provoked by his sedentary lifestyle. Due to the abnormal chest CT, pulmonology recommended outpatient reimaging of the chest in 4-6 weeks. GI was consulted for PEG tube placement. Consent needed to be obtained from the guardian. Heparin drip and antibiotics were continued. Peg tube finally placed September 23, 2021, heparin drip on hold for the procedure. Patient started on Eliquis after PEG tube placed. Tolerated tube feeds well and was discharged in good condition at goal with close outpatient follow-up by specialist as listed below. Status at Discharge Functional status at discharge: bed bound Overall status at discharge: patient is progressing back to baseline Time Spent with Patient Time attestation: Total time spent providing and/or coordinating discharge services: Greater than 30 minutes Time spent: Greater than 30 minutes Exam Const: General: comfortable and no acute distress Other: Appears chronically ill, alert, nonverbal HENMT: Mouth: Yes moist mucous membranes and Yes dry mucous membranes Eyes: Sclera: sclerae normal Neck: Neck: supple and no JVD Lymphatic: lymphadenopathy not noted Resp: Effort & Inspection: normal respiratory effort
== END 2021-09-25 14:35 | DRG 175 ==
LOC: ANHED 12:14 → ANHIMU 14:16 → ANH3MED 09-14 15:42
PROVIDERS: Hospitalist; Internal Medicine; Internal Medicine Gastroenterology; Internal Medicine Nephrology; Nurse Practitioner Adult Health; Physician Assistant; Admitting Provider Internal Medicine; Emergency Provider Emergency Medicine; PCP Internal Medicine; Visit Provider Student in an Organized Health Care Education/Training Program
PROC: 0DH63UZ Insertion of Feeding Device into Stomach, Percutaneous Approach (ICD-10-PCS; CPT 43246; principal; 2021-09-23 13:30)
DX: I26.99 Other pulmonary embolism without acute cor pulmonale (principal); J18.9 Pneumonia, unspecified organism; J96.01 Acute respiratory failure with hypoxia; N17.9 Acute kidney failure, unspecified; Z20.822 Contact with and (suspected) exposure to COVID-19; F03.90 Unspecified dementia, unspecified severity, without behavioral disturbance, psychotic disturbance, mood disturbance, and anxiety; R13.10 Dysphagia, unspecified; F32.9 Major depressive disorder, single episode, unspecified; R79.89 Other specified abnormal findings of blood chemistry; E86.0 Dehydration; R59.0 Localized enlarged lymph nodes; E87.6 Hypokalemia; R00.0 Tachycardia, unspecified; R91.8 Other nonspecific abnormal finding of lung field; K22.70 Barrett's esophagus without dysplasia; D18.09 Hemangioma of other sites; Z79.899 Other long term (current) drug therapy
CPT/HCPCS: 36415; 36600; 43246; 70450; 71045; 71046; 71275; 76705; 76775; 80048; 80053; 80069; 80074; 80202; 82375; 82550; 82565; 82570; 82805; 82948; 83050; 83605; 83735; 83880; 84100; 84132; 84145; 84156; 84300; 84443; 84466; 84478; 84484; 85025; 85027; 85380; 85610; 85730; 86140; 87040; 87426; 87449; 87899; 88305; 93005; 93306; 93970; 94640; 96361; 96365; 96367; 96375; 99285; A9270; C9113; C9803; J0456; J0690; J0696; J1644; J2543; J2704; J2930; J3370; J3480; J7030; J7040; J7042; J7120; Q9967; U0003; U0005

== ENCOUNTER 2022-03-30 12:03 | Observation (INO) | payer OTHER, SELFPAY ==
[2022-03-30] VITALS (25 sets, daily range): BP systolic 95–106; BP diastolic 66–85; PULSE 115–127; RESP 22–28; O2SAT 93–99; BMI 25.0
--- NOTE | ~2022-03-30 | CT_ITS ---
EXAMINATION: CT chest abdomen pelvis w con DATE: 03/31/2022 14:11 INDICATION: Pneumonia. Presumed lung cancer. TECHNIQUE: Computed tomography (CT) of the chest, abdomen, and pelvis was performed with 100 mL Omnip aque-350 intravenous contrast. Automated exposure control and iterative reconstruction technique were employed. The dose-length product was 1155.23 mGy-cm. COMPARISON: 09/11/2021 FINDINGS: CHEST CT: Complete consolidation of the left lung with only small amount of volume loss, heterogeneous enhancem ent and dilated fluid-filled peripheral bronchi consistent with postobstructive pneumonia. Remainder of the left hemithorax is occupied by a moderate to large left pleural effusion which together result s in rightward mediastinal shift of the heart and mediastinum and depression of the left hemidiaphrag m. There is a mass at the left hilum as evidenced by abrupt obstruction of the left mainstem bronchus which occludes the left lower lobar and lingular pulmonary arteries. Additional bulky likely metasta tic subcarinal, prevascular and AP window lymphadenopathy. Compensatory volume loss of the right lung . No right-sided pulmonary edema, pneumonia, suspicious pulmonary nodules or pleural effusion. Heart size is normal. No pericardial effusion. Normal caliber thoracic aorta with no dissection. The subcar inal mass compresses the midthoracic esophagus with some degree in the immediately more cephalad uppe r thoracic esophagus. Moderate thoracic spondylosis with chronic mild compression fracture and lower thoracic spine. No suspicious lytic or blastic bone lesions. ABDOMEN/PELVIS CT: Percutaneous gastrostomy tube bulb within the distal body of the decompressed stomach. No 3 cm hypoen hancing mass in the right hepatic lobe consistent with metastatic disease. Cholecystectomy clips the gallbladder fossa. Spleen, pancreas and bilateral kidneys are normal. Small bilateral adrenal nodules which are slightly larger than on the prior study which could represent adenomas or additional metas tatic disease. Moderate-sized fat-containing ventral hernia measuring 7.3 x 3.3 6.2 cm and extending 3 2.0 x 1.7 cm os. Small amount of stool scattered throughout the colon. There are few sigmoid divert icula without adjacent inflammatory change to suggest diverticulitis. No bowel obstruction. Benitez cat heter within the bladder which is decompressed, limiting evaluation. No free intraperitoneal gas or f luid. No pathologically enlarged abdominal or pelvic lymphadenopathy. Pagetoid changes in the bilater al innominate bones and proximal femurs. IMPRESSION: 1. Interval progression of metastatic lung cancer enlarging bulky mediastinal lymphadenopathy, new ma ss in the liver, slight interval enlargement in small adrenal nodules and progression of a poorly def ined left hilar mass which now obstructs the left mainstem bronchus and lingular and left lower lobar pulmonary arteries and secondary postobstructive pneumonia throughout the left lung. 2. Moderate to large left pleural effusion resulting in rightward shift of the heart and mediastinum and depression of the left hemidiaphragm. 3. No acute intra-abdominal/pelvic process. Reviewed, dictated and finalized at location B. UNIT MANAGER IMPRESSION: 1. Interval progression of metastatic lung cancer enlarging bulky mediastinal l ymphadenopathy, new mass in the liver, slight interval enlargement in small adr enal nodules and progression of a poorly defined left hilar mass which now obst ructs the left mainstem bronchus and lingular and left lower lobar pulmonary ar teries and secondary postobstructive pneumonia throughout the left lung. 2. Moderate to large left pleural effusion resulting in rightward shift of the heart and mediastinum and depression of the left hemidiap
--- NOTE | ~2022-03-30 | XR_ITS ---
EXAMINATION: XR chest 1V DATE: 03/30/2022 13:40 INDICATION: Altered mental status. TECHNIQUE: A single frontal view of the chest was obtained. COMPARISON: Chest single view 09/14/2021, chest CT 09/11/2021 FINDINGS: There is complete opacification of left hemithorax with rightward shift of the mediastinum. There is no right-sided pleural effusion or pneumothorax. The heart size is obscured. Surgical clips in the right upper quadrant are likely from cholecystectomy. IMPRESSION: 1. Complete opacification of left hemithorax with rightward shift of the mediastinum, likely some com bination of pleural effusion, malignancy, and atelectasis/pneumonia. Consider chest CT with contrast. Reviewed, dictated and finalized at location A. CTOR OF SUSTAINABLE DESIGN IMPRESSION: 1. Complete opacification of left hemithorax with rightward shift of the medias tinum, likely some combination of pleural effusion, malignancy, and atelectasis /pneumonia. Consider chest CT with contrast.
--- NOTE | ~2022-03-30 | CT_ITS ---
EXAMINATION: CT brain wo con DATE: 03/30/2022 13:31 INDICATION: Altered level of consciousness. TECHNIQUE: Computed tomography (CT) of the head was performed without intravenous contrast. The mA wa s adjusted according to patient size. Iterative reconstruction technique was employed. The dose-lengt h product was 605.33 mGy-cm. COMPARISON: Head CT 09/11/2021 FINDINGS: There are scattered areas of low attenuation in the cerebral white matter. There is no intr acranial hemorrhage, acute infarction, or abnormal intracranial mass lesion. The ventricles are hardik l in size. The orbits are normal. There is mild mucosal thickening in the paranasal sinuses. The mast oid air cells are normal. There is cerumen in the external auditory canals. IMPRESSION: 1. Stable moderate nonspecific cerebral white matter disease, which likely represents chronic small v essel ischemic disease. Reviewed, dictated and finalized at location A. ROLLER IMPRESSION: 1. Stable moderate nonspecific cerebral white matter disease, which likely repr esents chronic small vessel ischemic disease.
--- NOTE | 2022-03-30 12:23 | ED.AMS ---
HPI - Altered Mental Status General Chief Complaint: Altered Mental Status Stated Complaint: altered loc Time Seen by Provider: 03/30/22 12:16 History of Present Illness HPI narrative: Patient is a 67-year-old male presenting with altered mental status. Patient has reportedly been a hospice patient with a [facility]ice for the last 6 months. According to the hospice nurse they have been trying to obtain a DNR since October but the patient's guardian is the state and they have been unable to get a hold of anyone. Today, she noticed the patient was more altered than normal and found him to have low blood pressures so she again tried to call his state guardian but only got a voicemail so she called EMS. For EMS, his blood pressure was 80s over 50s. Fluids were started with an increase in his blood pressure to 90s over 70s. Patient saturating adequately on room air. Further history is limited at this time due to the patient's altered mental status. Related Data Home Medications Medication Instructions Recorded Confirmed acetaminophen 325 mg tablet 650 mg PO Q6H PRN Pain 09/11/21 09/11/21 bupropion HCl 75 mg tablet 75 mg PO DAILY 09/11/21 09/11/21 cholecalciferol (vitamin D3) 1,250 1,250 mcg PO WEEKLY 09/11/21 09/11/21 mcg (50,000 unit) tablet citalopram 20 mg tablet 20 mg PO DAILY 09/11/21 09/11/21 donepezil 10 mg tablet 10 mg PO HS 09/11/21 09/11/21 mirtazapine 15 mg tablet 15 mg PO DAILY 09/11/21 09/11/21 Allergies Allergy/AdvReac Type Severity Reaction Status Date / Time No Known Allergies Allergy Verified 03/30/22 14:56 Review of Systems Review of Systems: All systems reviewed & are unremarkable except as noted in HPI and below PMFSH Past Medical History Medical History (Updated 04/01/22 @ 16:38 by Yisel Romo MD) Villalobos esophagus Chronic anticoagulation Dementia Depression Dysphagia Pulmonary embolism Suspected malignant neoplasm of lung Surgical History Surgical History Surgical history unknown Family History Family History Other Family history unknown Social History Social History (Updated 03/30/22 @ 22:34 by Ayesha Bob PA-C) Social History: State appointed guardian: Eric Cardona. Code status: Full code. Smoking status: Unknown if ever smoked Alcohol intake: unknown Substance use: unknown Additional living arrangements comments: Resident of [place]. Spiritual care concerns: No Exam Narrative: GENERAL: Pale, chronically ill-appearing, responsive to painful stimuli, protecting his airway currently HEAD: Normocephalic, atraumatic. EYES: PERRLA ENT: Nares clear, no rhinorrhea or epistaxis. Mucous membranes moist. NECK: Supple. CHEST: Coarse breath sounds bilaterally. No respiratory distress. HEART: Tachycardic. No murmur heard. Normal peripheral pulses. ABDOMEN: Soft, nontender, nondistended, normal active bowel sounds. EXTREMITIES: Normal range of motion. No edema. SKIN: Warm, dry, no rash. NEURO: Responsive to painful stimuli, moving extremities intermittently spontaneously. Course Vital Signs Vital signs: Vital Signs Pulse Rate 127 H 03/30/22 12:05 Respiratory Rate 24 H 03/30/22 12:05 Blood Pressure 95/82 L 03/30/22 12:05 Pulse Oximetry 93 03/30/22 12:05 Temperature 97.9 F 04/01/22 14:00 Pulse Rate 123 H 04/01/22 14:00 Respiratory Rate 18 04/01/22 14:00 Blood Pressure 88/57 L 04/01/22 14:00 Pulse Oximetry 95 04/01/22 14:00 Oxygen Delivery Nasal Cannula 03/31/22 08:00 Oxygen Flow Rate 2 03/31/22 08:00 MDM - Altered Mental Status MDM Narrative Medical decision making narrative: Patient is a 67-year-old male presenting with altered mental status. On arrival, patient is tachycardic with soft pressures. Patient has been with [facility] for the last 6 months. We will attempt to further
--- NOTE | 2022-03-30 12:37 | PC.NURSE ---
Spoke with RUFUS York from [facility]. She states patient was placed on hospice in October due to dementia and frequent hospital visits.
--- NOTE | 2022-03-30 12:43 | PC.NURSE ---
Left voicemail with patient's guardian, Giancarlo to return my call regarding the patient's care.
[2022-03-30] MEDS: SODIUM CHLORIDE 0.9% IV 1,000 ML 999 ML IV CONT (13:05)
--- NOTE | 2022-03-30 13:23 | PC.NURSE ---
Giancarlo Cardona is patient's state guardian- [phone]
[2022-03-30 13:52] LABS: Basophils Absolute Auto 0.1 K/mm3 (0.0-0.1); Basophils Percent Auto 0.7 % (0.2-1.2); Eosinophils Absolute Auto 0.1 K/mm3 (0-0.3); Eosinophils Percent Auto 1.2 % (0-4.4); Hematocrit 26.3 % (42.0-52.0); Hemoglobin 7.8 g/dL (14.0-18.0); Immature Granulocyte Absolute 0.05 K/mm3 (0.00-0.031); Immature Granulocyte Percent A 0.5 % (0-0.5); Lymphocytes Absolute Auto 1.58 K/mm3 (0.9-3.2); Lymphocytes Percent Auto 15.1 % (18.3-44.2); Mean Corpuscular HGB Conc 29.7 g/dl (32-36); Mean Corpuscular Volume 97.8 fl (80-100); Monocytes Absolute Auto 0.8 K/mm3 (0.1-0.6); Monocytes Percent Auto 7.9 % (2.6-8.5); Neutrophils Absolute Auto 7.8 K/mm3 (1.3-6.7); Neutrophils Percent Auto 74.6 % (45.5-73.1); Platelet Count Result 415 k/mm3 (150-375); Red Blood Count 2.69 M/mm3 (4.6-6.20); Red Cell Distribution Width 14.8 % (11.5-14.5); White Blood Count 10.5 K/mm3 (4.5-10.0)
[2022-03-30 14:02] LABS: Alanine Aminotransferase 30 U/L (6-50); Albumin Level 2.8 g/dL (3.5-5.1); Alkaline Phosphatase 100 U/L (38-126); Anion Gap 8 mmol/L (8-16); Aspartate Amino Transferase 45 U/L (17-59); Bilirubin,Total 0.3 mg/dL (0.2-1.3); Blood Urea Nitrogen 39 mg/dL (9-20); Calcium 8.5 mg/dL (8.4-10.2); Carbon Dioxide 31 mmol/L (22-30); Chloride 105 mmol/L (98-107); Estimated CRCL calculation 68 ml/min; Estimated Glomerular Filt Rate > 60; Glucose 109 mg/dL (65-110); Lactic Acid Reflex 2.8 mmol/L (0.7-2.0); Potassium 4.6 mmol/L (3.4-5.0); Sodium 144 mmol/L (137-145)
--- NOTE | 2022-03-30 14:12 | PCCCNOTE ---
Pt is under State Guardianship and at present is full code under hospice. I am asked to see if DNR order from state could be facilitated. State contacted by Margaret Kirkpatrick and paperwork sent to ED that needs to be completed. This paperwork was sent to [facility] in care of [place] (phone [phone] ) for the hospice doctor to complete and send in with supporting documentation. ER doctor and Ayesha ISIDRO informed that State person would be by tomorrow to complete additional paperwork that will be sent to [employer] for determination.
[2022-03-30 14:38] LABS: Influenza A QL RT-PCR Negative (Negative); Influenza B QL RT-PCR Negative (Negative); SARS-CoV-2 RNA PCR Negative
[2022-03-30 15:14] LABS: Appearance Urine Clear (Clear); Bilirubin Urine Negative (Negative); Blood Urine Negative (Negative); Color Urine Yellow (Yellow); Glucose Urine UA Negative (Negative); Ketones Urine Negative (Negative); Leukocyte Esterase Ur Negative LEU/UL (Negative); Nitrate Urine Negative (Negative); Protein Urine 1+ mg/dL (Negative); Specific Grav Ur 1.025 (1.001-1.035); Urobilinogen Urine 0.2 mg/dL (<2.0); pH Urine 5.5 (5.0-9.0)
--- NOTE | 2022-03-30 15:15 | PM.IMHP ---
H&P: HPI History of Present Illness Date/Time: 03/30/22 15:15 Chief Complaint: Altered mental status. Narrative: This is a very unfortunate 67-year-old male with history of dementia, metastatic lung cancer, pulmonary embolism, and Villalobos esophagus who presented to the emergency department via EMS from [place] for evaluation of altered mental status. He is minimally responsive and unable to provide any history and as such all of the following is obtained via a review of his electronic medical records. I was involved in the patient's care at the end of August 2021 at which time he was admitted with acute pulmonary embolism and findings of of a suspected malignant left hilar mass with postobstructive pneumonia. G-tube was placed at that time and he was treated for his pneumonia and started on apixaban. He has not had any visits to this facility since that time and he is on hospice ([facility]). The hospice nurse indicates that they have not been able to get DNR paperwork signed by the patient's state appointed guardian and when the patient further declined in January the guardian indicated to them that the patient was remain a full code but to continue with hospice care. Today the hospice nurse found the patient less responsive and hypotensive and was unable to get a hold of the guardian and thus the patient was brought in for evaluation. On EMS arrival he was hypotensive with blood pressures in the 80s over 50s though they have improved with IV fluids. Multiple attempts by the hospice nurse, ED physician, and staff to get in touch with the guardian were unsuccessful. A full workup was pursued in the ER and he is being admitted to the hospital in this setting with presumed pneumonia. Eventually the foster care social worker was able to get a hold of the guardian who will be filling out DNR paperwork and faxing into the facility. At the time my evaluation the patient does not answer questions or follow commands however he does move upper and lower extremities and he hold his eyes shut tightly when I try to open them. He moans quite frequently but does not say any words. Review of Systems Review of Systems: Unable to obtain given current clinical condition. [facility] Past Medical History Medical History (Updated 03/30/22 @ 22:38 by Ayesha Bob PA-C) Villalobos esophagus Chronic anticoagulation Dementia Depression Dysphagia Pulmonary embolism Suspected malignant neoplasm of lung Surgical History Surgical History Surgical history unknown Family History Family History Other Family history unknown Social History Social History (Updated 03/30/22 @ 22:34 by Ayesha Bob PA-C) Social History: State appointed guardian: Eric Cardona. Code status: Full code. Smoking status: Unknown if ever smoked Alcohol intake: unknown Substance use: unknown Additional living arrangements comments: Resident of [place]. Spiritual care concerns: No Meds Home Medications and Allergies Home Medications Medication Instructions Recorded Confirmed Type acetaminophen 325 mg tablet 650 mg PO Q6H PRN Pain 09/11/21 09/11/21 History bupropion HCl 75 mg tablet 75 mg PO DAILY 09/11/21 09/11/21 History cholecalciferol (vitamin D3) 1,250 1,250 mcg PO WEEKLY 09/11/21 09/11/21 History mcg (50,000 unit) tablet citalopram 20 mg tablet 20 mg PO DAILY 09/11/21 09/11/21 History donepezil 10 mg tablet 10 mg PO HS 09/11/21 09/11/21 History mirtazapine 15 mg tablet 15 mg PO DAILY 09/11/21 09/11/21 History apixaban 5 mg tablet (Eliquis) 5 mg PO Q12HR 30 days #60 tabs 09/25/21 Rx apixaban 5 mg tablet (Eliquis) 10 mg PO Q12HR 6 days #24 tabs 09/25/21 Rx pantoprazole 40 mg tablet,delayed 40 mg PO Q12HR 30 days #60 tabs 09/25/21 Rx release Allergies Allergy/AdvReac Type Severity Reaction Status Date / Time No Known Allergies All
[2022-03-30 15:19] LABS: Bacteria Urine Trace /hpf; Mucus Urine Rare /lpf; RBC Urine 0-2 /hpf (0-2)
[2022-03-30 15:22] LABS: Add Urine Microscopic? YES
[2022-03-30] MEDS: SODIUM CHLORIDE 0.9% IV 1,000 ML 100 ML IV CONT (16:09)
[2022-03-30 16:49] LABS: Reflex Lactic Acid Yes or No Add Lactic
[2022-03-30 17:34] LABS: Lactic Acid 2.3 mmol/L (0.7-2.0)
[2022-03-30 23:35] LABS: Hematocrit 27.6 % (42.0-52.0); Hemoglobin 7.9 g/dL (14.0-18.0); Immature Reticulocyte Fraction 30.9 % (3.0-15.9); Reticulocyte Hemoglobin Conten 27.5 pg (28.2-35.7); Reticulocyte Percent 3.01 % (0.7-4.3); Reticulocytes Absolute 0.08 B/L (32.2-175.7)
[2022-03-30 23:52] LABS: Alanine Aminotransferase 32 U/L (6-50); Albumin Level 2.7 g/dL (3.5-5.1); Alkaline Phosphatase 97 U/L (38-126); Aspartate Amino Transferase 55 U/L (17-59); Bilirubin,Total 0.5 mg/dL (0.2-1.3); Magnesium 2.4 mg/dL (1.6-2.3)
[2022-03-31] VITALS (7 sets, daily range): BP systolic 85–107; BP diastolic 55–66; PULSE 104–116; RESP 20–26; TEMP 36.1–37.1; O2SAT 93–98; BMI 29.6
[2022-03-31 00:27] LABS: Iron 50 ug/dL (49-181)
[2022-03-31 00:37] LABS: Percent Iron Saturation 22 % (20-50)
[2022-03-31 00:58] LABS: Folic Acid 18.4 ng/mL (2.76->20)
[2022-03-31] MEDS: SODIUM CHLORIDE 0.9% IV 1,000 ML 100 ML IV CONT ×2 (02:09→12:11)
[2022-03-31 06:10] LABS: Hematocrit 25.1 % (42.0-52.0); Hemoglobin 7.2 g/dL (14.0-18.0); Mean Corpuscular HGB Conc 28.7 g/dl (32-36); Mean Corpuscular Hemoglobin 29.4 pg (26-34); Mean Corpuscular Volume 102.4 fl (80-100); Mean Platelet Volume 10.3 fl (7.4-10.4); Platelet Count Result 375 k/mm3 (150-375); Red Blood Count 2.45 M/mm3 (4.6-6.20); Red Cell Distribution Width 14.8 % (11.5-14.5); White Blood Count 9.2 K/mm3 (4.5-10.0)
[2022-03-31 06:25] LABS: Anion Gap 7 mmol/L (8-16); Blood Urea Nitrogen 47 mg/dL (9-20); Calcium 8.1 mg/dL (8.4-10.2); Carbon Dioxide 29 mmol/L (22-30); Chloride 108 mmol/L (98-107); Estimated CRCL calculation 61 ml/min; Estimated Glomerular Filt Rate > 60; Glucose 101 mg/dL (65-110); Potassium 4.7 mmol/L (3.4-5.0); Sodium 144 mmol/L (137-145)
[2022-03-31 07:10] LABS: Ferritin > 2000.00 ng/mL (11.1-264)
--- NOTE | 2022-03-31 09:31 | PM.IMPN ---
Progress Note: A&P Assessment and Plan (1) Altered mental status: Code(s): R41.82 - Altered mental status, unspecified Status: Acute Assessment and Plan: Patient presented to the emergency department from hospice for altered mental status. Patient had decreased responsiveness, was hypotensive, and diaphoretic. Patient is nonverbal at baseline but typically eyes are open per medical records likely metabolic encephalopathy secondary to acute infection and possible metastatic disease Continue antibiotic therapy and supportive care for sepsis (2) Sepsis: Code(s): A41.9 - Sepsis, unspecified organism Status: Acute Assessment and Plan: patient presented to the emergency department hypotensive with SBP 80s, tachycardic HR 110s, lactic acid 2.8 and chest x-ray showing pleural effusions and complete opacities to the left lung. WBC 9.2, temp 97.0?, HR 114, respirations 26, BP 91/65 map 73 SpO2 93% on 2 L nasal cannula today 03/31/2022 sepsis secondary to postobstructive pneumonia Continue IV hydration Repeat lactic acid 2.3 Continue IV antibiotics for obstructive pneumonia (3) Pneumonia: Code(s): J18.9 - Pneumonia, unspecified organism Status: Acute Assessment and Plan: Chest x-ray imaging as above showing complete opacification of left lung concerning for pleural effusion, and pneumonia. CT chest shows poorly defined left hilar mass now obstructing left mainstem bronchus, lingular, and left lower lobe pulmonary arteries and suggestive of postobstructive pneumonia to left lung currently on IV Rocephin 1 g Q24 hours and azithromycin 500 mg IV Q 24 hours, and will plan to broaden antibiotic coverage for to Pseudomonas coverage Supplemental oxygen to keep SpO2 greater than 92% (4) Suspected malignant neoplasm of lung: Code(s): R68.89 - Other general symptoms and signs Status: Acute Assessment and Plan: Patient with repeat CT chest today with interval progression of metastatic lung cancer showing enlarging bulky mediastinal lymphadenopathy, new mass to the liver, slight interval enlargement of small adrenal nodules and progression of poorly defined left hilar mass which now strokes the left mainstem bronchus, lingular, and left lower lobe pulmonary arteries and secondary postobstructive pneumonia throughout the left lung, moderate to large pleural effusion presumed malignant with rightward shift of the heart and mediastinum. Patient was found to have suspicious mass on CT imaging in September of 2021 however repeat imaging following pneumonia treatment as 6 weeks later was not completed in presume to be secondary to patient entering hospice care. CT imaging today suggestive of metastatic cancer and likely pulmonary primary. Given patient's clinical picture poor prognosis is presumed (5) Normocytic anemia: Code(s): D64.9 - Anemia, unspecified Status: Acute Assessment and Plan: likely secondary to metastatic cancer, hemoglobin 7.2, hematocrit 25.1, MCV 102.4, MCH 29.4, MCHC 28.7 RDW 14.8 Previous hemoglobin 11.3 on 09/24/2021. No obvious acute bleeding is noted however patient has been on Eliquis this is currently being held as patient is unable to take oral medications. Will order fecal occult blood x1 Monitor for bleeding (6) Villalobos esophagus: Code(s): K22.70 - Villalobos's esophagus without dysplasia Status: Chronic Assessment and Plan: to be aware continue PPI (7) Chronic anticoagulation: Code(s): Z79.01 - FDC (current) use of anticoagulants Status: Acute Assessment and Plan: as above Plan patient is full code. However his been on hospice care for approximately 6 months. I discussed patient's prognosis and current physical exam as well as prior imaging and patient's underlying chronic conditions that would make him hospice appropriate with his current state guardian. We also discussed role of hosp
[2022-03-31] MEDS: SODIUM CHLORIDE 0.9% IV 500 ML IV CONT (10:33)
[2022-03-31] MEDS: MORPHINE SULFATE (*CRX) 2 MG/ML INJ 1 MG IV PUSH (15:20)
[2022-03-31] MEDS: PIPERACILLIN/TAZOBACTAM SOD 4.5 GM in SODIUM CHLORIDE 0.9% IV 100 ML 200 ML IVPB ×2 (15:21→18:40)
[2022-03-31] MEDS: PIPERACILLIN/TAZOBACTAM SOD 4.5 GM in SODIUM CHLORIDE 0.9% IV 100 ML 125 ML IVPB (23:23)
[2022-04-01] MEDS: PIPERACILLIN/TAZOBACTAM SOD 4.5 GM in SODIUM CHLORIDE 0.9% IV 100 ML 125 ML IVPB ×2 (05:27→11:06)
[2022-04-01] MEDS: SODIUM CHLORIDE 0.9% IV 1,000 ML 100 ML IV CONT (05:27)
[2022-04-01 06:00] VITALS: BP 96/57; PULSE 110; RESP 22; TEMP 37.4; O2SAT 96
[2022-04-01 07:21] LABS: Basophils Absolute Auto 0.1 K/mm3 (0.0-0.1); Basophils Percent Auto 0.6 % (0.2-1.2); Eosinophils Percent Auto 0.1 % (0-4.4); Hematocrit 23.9 % (42.0-52.0); Immature Granulocyte Absolute 0.07 K/mm3 (0.00-0.031); Immature Granulocyte Percent A 0.8 % (0-0.5); Lymphocytes Absolute Auto 0.88 K/mm3 (0.9-3.2); Lymphocytes Percent Auto 9.7 % (18.3-44.2); Mean Platelet Volume 10.2 fl (7.4-10.4); Monocytes Absolute Auto 0.6 K/mm3 (0.1-0.6); Monocytes Percent Auto 6.6 % (2.6-8.5); Neutrophils Absolute Auto 7.5 K/mm3 (1.3-6.7); Neutrophils Percent Auto 82.2 % (45.5-73.1); Platelet Count Result 382 k/mm3 (150-375); Red Blood Count 2.39 M/mm3 (4.6-6.20); White Blood Count 9.1 K/mm3 (4.5-10.0)
[2022-04-01 09:13] LABS: Hemoglobin 6.7 g/dL (14.0-18.0)
[2022-04-01] MEDS: FUROSEMIDE INJ 40 MG/4 ML VIAL 20 MG IV PUSH (11:03)
[2022-04-01 14:00] VITALS: BP 88/57; PULSE 123; RESP 18; TEMP 36.6; O2SAT 95
[2022-04-01] MEDS: MORPHINE SULFATE (*CRX) 2 MG/ML INJ IV PUSH (15:30)
--- NOTE | 2022-04-01 15:50 | PM.DS ---
DS: Admitting Diagnosis Discharge Date 04/01/22 1550 Admitting Diagnosis Altered mental status Sepsis Pneumonia Suspected malignant neoplasm of lung Normocytic anemia Villalobos esophagus Chronic anticoagulation DS: Discharge Diagnosis Discharge Diagnosis (1) Sepsis: Qualifiers: Sepsis type: sepsis due to unspecified organism Sepsis acute organ dysfunction status: with acute organ dysfunction Severe sepsis acute organ dysfunction type: acute respiratory failure Acute respiratory failure type: with hypoxia Severe sepsis shock status: with septic shock Qualified Code(s): A41.9 - Sepsis, unspecified organism; R65.21 - Severe sepsis with septic shock; J96.01 - Acute respiratory failure with hypoxia Code(s): A41.9 - Sepsis, unspecified organism Status: Acute (2) Postobstructive pneumonia: Code(s): J18.9 - Pneumonia, unspecified organism Status: Acute (3) Hypoxia: Code(s): R09.02 - Hypoxemia Status: Acute (4) Pleural effusion, left: Code(s): J90 - Pleural effusion, not elsewhere classified Status: Acute (5) Metabolic encephalopathy: Code(s): G93.41 - Metabolic encephalopathy Status: Acute (6) Metastatic cancer: Qualifiers: Area of secondary neoplastic involvement: digestive structure Digestive structure secondary neoplasm location: metastatic to liver Qualified Code(s): C78.7 - Secondary malignant neoplasm of liver and intrahepatic bile duct Code(s): C79.9 - Secondary malignant neoplasm of unspecified site Status: Acute (7) Hospice care: Code(s): Z51.5 - Encounter for palliative care Status: Chronic (8) Normocytic anemia: Code(s): D64.9 - Anemia, unspecified Status: Chronic (9) Dementia: Qualifiers: Dementia type: unspecified type Dementia severity: severe Dementia behavioral or psychological symptom: without behavioral, psychotic, or mood disturbance or anxiety Qualified Code(s): F03.C0 - Unspecified dementia, severe, without behavioral disturbance, psychotic disturbance, mood disturbance, and anxiety Code(s): F03.90 - Unspecified dementia, unspecified severity, without behavioral disturbance, psychotic disturbance, mood disturbance, and anxiety Status: Chronic (10) Dysphagia: Qualifiers: Dysphagia type: unspecified Qualified Code(s): R13.10 - Dysphagia, unspecified Code(s): R13.10 - Dysphagia, unspecified Status: Chronic DS: Summary Hospital Course Reason for hospitalization: Altered mental status Hospital Course: Chandana Osborne is a 67-year-old male with dementia, presumed metastatic lung cancer, pulmonary embolism, and Villalobos esophagus who presented to the emergency department via EMS from [place] for evaluation of altered mental status. He was minimally responsive and unable to provide any history. Medical information was obtained via review of electronic medical records. At the end of August 2021, he was admitted with acute pulmonary embolism and findings suspected malignant mass to left hilar region with postobstructive pneumonia. G-tube was placed at that time for dysphagia and he was treated for his pneumonia and started on apixaban for afib. He has not had any visits to this facility since that time. He reportedly was placed on hospice care, with [facility], sometime in October. The hospice nurse indicated that they have not been able to get DNR paperwork signed by the patient's state appointed guardian. The patient declined in January and the guardian indicated to them that the patient was to remain a full code, but to continue with hospice care. On the day of admission, the hospice nurse found the patient less responsive and hypotensive with BP 60/40s. The hospice nurse was unable to get a hold of the guardian and thus the patient was brought to the ED for evaluation. On EMS arriva,l he was hypotensive with blood pressures 80s/50s, whi
[2022-04-01 16:57] LABS: EDCOVIDSCREEN Negative (Negative)
[2022-04-01] MEDS: SCOPOLAMINE 1.5 MG PATCH TRANSDERM (17:40)
== END 2022-04-01 20:58 | disposition hospice, inpatient (51) ==
LOC: ANHED 12:20 → ANH3MEDSUR 22:11
PROVIDERS: Nurse Practitioner Family; Physician Assistant; Admitting Provider Family Medicine; Emergency Provider Emergency Medicine; PCP Internal Medicine; Visit Provider Chiropractor
DX: Z51.5 Encounter for palliative care (principal); A41.9 Sepsis, unspecified organism; R65.21 Severe sepsis with septic shock; J96.01 Acute respiratory failure with hypoxia; J18.9 Pneumonia, unspecified organism; J90 Pleural effusion, not elsewhere classified; G93.41 Metabolic encephalopathy; C78.7 Secondary malignant neoplasm of liver and intrahepatic bile duct; C78.00 Secondary malignant neoplasm of unspecified lung; R13.10 Dysphagia, unspecified; D64.9 Anemia, unspecified; F03.C0 Unspecified dementia, severe, without behavioral disturbance, psychotic disturbance, mood disturbance, and anxiety; R41.82 Altered mental status, unspecified; R68.89 Other general symptoms and signs; K22.70 Barrett's esophagus without dysplasia; Z20.822 Contact with and (suspected) exposure to COVID-19; I95.9 Hypotension, unspecified; F32.A Depression, unspecified; R00.0 Tachycardia, unspecified; E87.20 Acidosis, unspecified; R91.8 Other nonspecific abnormal finding of lung field; R90.82 White matter disease, unspecified; Z86.711 Personal history of pulmonary embolism; Z79.1 Long term (current) use of non-steroidal anti-inflammatories (NSAID); Z79.899 Other long term (current) drug therapy; Z79.01 Long term (current) use of anticoagulants
CPT/HCPCS: 36415; 70450; 71045; 71260; 74177; 80048; 80053; 80076; 81001; 82607; 82728; 82746; 83540; 83550; 83605; 83735; 85014; 85018; 85025; 85027; 85046; 87426; 87636; 96361; 96365; 96366; 96367; 96375; 96376; 99285; A9270; C9803; G0378; J0131; J0456; J1940; J2270; J2543; J7030; J7040; Q9967